=== PATIENT | female | born 1975 | race Caucasian/White ===

== ENCOUNTER 2018-08-15 16:48 | Emergency (ER) | payer BC, SELFPAY ==
[2018-08-15 16:54] VITALS: BP 107/57; PULSE 81; RESP 20; TEMP 37.2; O2SAT 96
--- NOTE | 2018-08-15 17:06 | W.ED.GENAD ---
Discharge Plan Disposition Patient Disposition: HOME Condition: Improving Discharge Details Chief Complaint: Fever Clinical Impression: Acute frontal sinusitis Primary Care Provider: Leslye Mcfarlane ED Provider: Sim Hernandez Home Meds and New Rx's Prescriptions: New amoxicillin-pot clavulanate 875-125 mg tablet 1 tab PO BID 10 Days Qty: 20 RF: 0 Continued OMEGA 3 FISH OIL 1 ea PO DAILY RF: 0 Discharge Instructions Instructions: Sinusitis (ED) Additional Instructions: Your influenza testing was negative. Home to rest this evening. Small, frequent sips of fluids to maintain hydration. May use Tylenol and/or ibuprofen as needed for aches, pains, fever. Return to the emergency room for worsening or any other acute concerns Medical Decision Making 43-year-old female 7-8 days of cough, congestion, fever chills and malaise with associated sinus congestion. She is afebrile, pleasant, well-appearing. Diagnosis includes influenza, bronchitis or sinusitis. Patient had flu testing performed which was negative. She does appear to have acute sinusitis and I will treat her as such. Discussed with her home management as well as return precautions. HPI General Mode of arrival: ambulatory. Date/Time Provider Initiated Documentation: 08/15/18 16:49. Limitations to Documentation: no limitations. Information obtained by: patient. History of Present Illness 43 year old F presents to the emergency department with the chief complaint of 8-10 days of fever and cough with malaise, question, described as moderate, Quality is described as aching and dull, and is localized to the chest. Patient reports no radiation. Patient started experiencing this day(s) and it has been constant. No relieving factors improve symptom(s), No exacerbating factors reported . Patient notes cough, fever/chills and loss of appetite. Related Data Home Medications Medication Instructions Recorded Confirmed Lampe 3 Fish Oil 1 ea PO DAILY 10/28/12 08/15/18 amoxicillin-pot clavulanate 1 tab PO BID 10 Days #20 tab 08/15/18 Previous Rx's Medication Instructions Recorded amoxicillin-pot clavulanate 1 tab PO BID 10 Days #20 tab 08/15/18 Allergies Allergy/AdvReac Type Severity Reaction Status Date / Time No Known Allergies Allergy Unverified 08/15/18 16:57 General Stated Complaint: Fever DHAVAL: 3 Review of Systems Review of Systems 8 systems reviewed and otherwise neg [facility] Social History Smoking/Tobacco Use Status: Never Exam Narrative Exam Narrative: GEN: awake, alert, oriented 3. Pleasant, well groomed, interactive. HEAD: Normocephalic, atraumatic ENT: Mucous membranes moist, oropharynx unremarkable, External ear exam unremarkable. Membranes fluid-filled but nondistended. Bilateral maxillary and frontal sinus tenderness to percussion EYES: PERRL, EOMI NECK: Full ROM, no CORAL, no menigismus CHEST/RESP: Nontender, clear to auscultation bilateral, no wheeze/rhonchi/rales CARDIOVASCULAR: RRR, no murmur, rub nemesio. 2+ Rad pulse bilateral ABDOMEN: Soft, nontender, no mass. +Bowel sounds EXT: Full ROM, no edema, no rash Neuro: Grossly normal neurologic exam, conversant, interactive. Psych: Speech fluent, thoughts congruent, affect normal Course Vital Signs Temperature 37.2 C 08/15/18 16:54 Pulse 81 08/15/18 16:54 Respiratory Rate 20 08/15/18 16:54 Blood Pressure 107/57 L 08/15/18 16:54 Pulse Oximetry 96 08/15/18 16:54 Temperature 37.2 C 08/15/18 16:54 Temperature Source Temporal Artery Scan 08/15/18 16:54 Pulse 81 08/15/18 16:54 Respiratory Rate 20 08/15/18 16:54 Respiratory Effort Non-Labored 08/15/18 16:54 Blood Pressure 107/57 L 08/15/18 16:54 Blood Pressure Position Sitting 08/15/18 16:54 Pulse Oximetry 96 08/15/18 16:54 Oxygen Delivery Method Room Air 08/15/18 16:54 Oxygen Flow Rate 0 08/15/18 16:54 Pain Level 6 08/15/18 16:54
[2018-08-15 18:11] VITALS: BP 107/57; PULSE 81; RESP 20; TEMP 37.2; O2SAT 96
== END 2018-08-15 18:15 | disposition home or self-care (01) ==
PROVIDERS: Emergency Provider Emergency Medicine; PCP Internal Medicine
DX: J01.10 Acute frontal sinusitis, unspecified (principal)
CPT/HCPCS: 87449; 99283

== ENCOUNTER 2018-09-14 08:53 | Outpatient (REF) | payer BC, SELFPAY ==
[2018-09-14 12:55] LABS: Anion Gap 10.2 mmol/L (3-11); BUN 13 mg/dL (7-18); CO2 27.8 mmol/L (21.0-32.0); CREATININE 0.76 mg/dL (0.55-1.02); Calcium 9.2 mg/dL (8.5-10.1); Chloride 103 mmol/L (98-107); Glucose 76 mg/dL (70-100); Potassium 3.9 mmol/L (3.5-5.1); Sodium 141 mmol/L (136-145); TSH 2.89 uIU/mL (0.358-3.74)
[2018-09-14 18:29] LABS: Cholesterol 195 mg/dL (50-200); HDL Cholesterol 80 mg/dL (40-60); LDL CHOLESTEROL 99 mg/dL (<100); Triglyceride 41 mg/dL (30-150)
== END 2018-09-14 09:13 ==
LOC: NCHCN 08:53
PROVIDERS: PCP Internal Medicine; Visit Provider Nurse Practitioner Family
DX: Z00.00 Encounter for general adult medical examination without abnormal findings (principal); E03.9 Hypothyroidism, unspecified
CPT/HCPCS: 80048; 80061; 83721; 84443

== ENCOUNTER 2018-09-19 09:54 | Outpatient (REF) | payer BC, SELFPAY ==
--- NOTE | 2018-09-19 09:00 | PAPFT_PTH ---
PATIENT: Belkis Wilson [facility] U#:[id number] AGE/SX: 43/F ROOM: RE09/19/[address]: Arcelia Brice : 1975 BED: DIS: 09/19/2018 SPEC #: [id number] RECD: 09/19/18 13:00 STATUS: CHRIS ARANA #: [id number] ANKIT: 09/19/18 09:[address]: Arcelia Brice DEPT: [facility] Cytology RECD BY: Alice Cook ENTERED: 09/19/18 13:01 SP TYPE: PAPFT OTHR DR: Leslye Mcfarlane Tissues: 1 - CX/ENDOCX FOR PAP SMEARS Procedures: PAP THIN PREP/UVM Screening HPV DNA PROBE Comments: [id number]
== END 2018-09-19 10:14 ==
LOC: NCHCN 09:54
PROVIDERS: PCP Internal Medicine; Visit Provider Nurse Practitioner Family
DX: Z00.00 Encounter for general adult medical examination without abnormal findings (principal); Z12.4 Encounter for screening for malignant neoplasm of cervix
CPT/HCPCS: 88142; 87624

== ENCOUNTER 2020-10-04 15:19 | Outpatient (REF) | payer BC, SELFPAY ==
[2020-10-04 16:55] LABS: Anion Gap 9.9 mmol/L (3-11); BUN 14 mg/dL (7-18); CO2 26.1 mmol/L (21.0-32.0); CREATININE 0.7 mg/dL (0.55-1.02); Calculated LDL 94 mg/dL (<100); Chloride 104 mmol/L (98-107); Cholesterol 181 mg/dL (<200); Glucose 83 mg/dL (74-106); HDL Cholesterol 75 mg/dL (40-60); Potassium 4.1 mmol/L (3.5-5.1); Sodium 140 mmol/L (136-145); TSH (W/Ref FT4) 3.28 uIU/mL (0.36-3.74); Triglyceride 61 mg/dL (<150)
== END 2020-10-04 15:20 | disposition home or self-care (01) ==
LOC: NCHCN 15:19
PROVIDERS: PCP Internal Medicine; Visit Provider Nurse Practitioner Family
DX: E03.9 Hypothyroidism, unspecified (principal); Z00.00 Encounter for general adult medical examination without abnormal findings
CPT/HCPCS: 80048; 80061; 84443

== ENCOUNTER 2021-08-22 10:35 | Outpatient (REF) | payer BC, SELFPAY ==
[2021-08-22 20:33] LABS: HCT 38.5 % (36.0-46.0); HGB 12.3 g/dL (11.2-15.7); MCH 30.1 pg (27.0-33.0); MCHC 31.9 % (32.0-36.0); MCV 94.4 fL (80-95); MPV 10.1 fL (8.0-11.0); Platelet Count 190 10^3/uL (130-400); RBC 4.08 10^6/uL (3.93-5.22); RDW 12.6 % (11.7-14.6); RDW-SD 43.8 fL; WBC 5.41 10^3/uL (4.4-10.8)
[2021-08-22 21:23] LABS: ALT 35 U/L (14-59); AST 23 U/L (15-37); Albumin 3.8 g/dL (3.4-5.0); Alkaline Phosphatase 68 U/L (46-116); Anion Gap 10.6 mmol/L (3-11); BUN 20 mg/dL (7-18); Bilirubin, Total 0.3 mg/dL (0.2-1.0); CO2 25.4 mmol/L (21.0-32.0); CREATININE 0.7 mg/dL (0.55-1.02); Calcium 9.3 mg/dL (8.5-10.1); Chloride 103 mmol/L (98-107); Glucose 86 mg/dL (74-106); Sodium 139 mmol/L (136-145); TSH 2.02 uIU/mL (0.36-3.74); Total Protein 7.3 g/dL (6.4-8.2); Vitamin B12 637 pg/mL (193-986)
[2021-08-24 17:17] LABS: T3, Total 102 ng/dL (97-169)
== END 2021-08-22 10:36 | disposition home or self-care (01) ==
LOC: NCHCN 10:35
PROVIDERS: PCP Internal Medicine; Visit Provider Nurse Practitioner Family
DX: E03.9 Hypothyroidism, unspecified (principal); R20.2 Paresthesia of skin
CPT/HCPCS: 80053; 85027; 82607; 84439; 84443; 84480

== ENCOUNTER 2023-06-14 06:14 | Day surgery (SDC) | payer BC, SELFPAY ==
--- NOTE | 2023-06-13 18:09 | W.PM.DSUDISC ---
Date of service: 06/14/23 Time of Service: 07:58 Discharge Plan Disposition Patient Disposition: Home Condition: Good Discharge Details Reason For Visit: Screening colonoscopy Attending Provider: Mayur Hill Primary Care Provider: Sloane Mendoza Home Meds and New Rx's Prescriptions: Continued multivitamin Tablet 1 tab PO DAILY Discontinued polyethylene glycol 3350 17 gram/dose powder 238 g PO ONCE Qty: 238 0RF Rx Instructions: take per colonoscopy instructions bisacodyl [Dulcolax (bisacodyl)] 5 mg tablet,delayed release (DR/EC) 5 mg PO ONCE Qty: 4 0RF Rx Instructions: take per colonoscopy instructions No Action acetaminophen [Tylenol] 325 mg tablet 325 mg PO ONCE PRN Discharge Instructions Additional Instructions: Belkis, we were able to complete your colonoscopy today without any difficulty at all. The quality of your prep was excellent. I could see everything without any difficulty at all. I did not see any signs of tumors, polyps, or really any other abnormalities whatsoever. Keep up what ever as you are doing. I would consider another screening colonoscopy in 10 years. 1. If tolerated, consume a soft, low fiber diet for 1-2 days. [address] Do not drive, drink alcohol, operate machinery, make critical decisions, or do activities that require coordination or balance for 24 hours. 3. Because air was put into your colon during the procedure, expelling air from your rectum (passing gas or farting) is normal. 4. You may not have a bowel movement for 1-3 days because of the colonoscopy prep. This is normal. 5. Go directly to the emergency room if you notice any of the following: Develop chills (warm to touch), or if you have a thermometer and your temperature is above 101 Difficulty breathing or difficultly swallowing Persistent vomiting Severe abdominal pain, other than gas cramps Severe chest pain Black, tarry stools Any bleeding ? exceeding one tablespoon 6. Call your physician if the site where your intravenous was started becomes red, swollen, painful, and warm to touch. 7. Your physician has reviewed your pre-procedure medications. Please continue to take those medications as previously ordered. You will be given specific information/education regarding any changes to your medications before leaving. Activity:: Activity as Tolerated Diet:: As Tolerated Discharge Orders Discharge Orders: Discharge Order (Routine); Ordered 06/13/23 Ordered By: Mayur Hill DS: Diagnosis Discharge Diagnosis (1) Screening for colorectal cancer: Status: Acute Asessment and Plan: Negative screening colonoscopy; follow-up in 10 years
--- NOTE | 2023-06-13 18:11 | W.COLOREPORT ---
Date of service: 06/14/23 Time of Service: 08:00 Colonoscopy Report Date of procedure: 06/14/23 Pre-op diagnosis general: screening colonoscopy Post-op diagnosis procedure note: other (Negative screening colonoscopy) Procedure: Colonoscopy Surgeon: Mayur Hill Anesthesia Type: General:No Airway Estimated blood loss (mL): 0 Pathology: none sent Complications: None Disposition: same day Indications: Belkis is a 48 year old woman who needs a screening colonoscopy Prep: Miralax/Dulcolax Procedure Start Time: 07:30 Procedure End Time: 07:47 Retraction Time: 9 Findings: Negative screening colonoscopy Procedure Description: After the induction of monitored anesthetic care, and with the patient in left lateral decubitus position, I began by performing an external anorectal exam.? Perineum and skin were normal, as was the anal verge.? There was no evidence of external hemorrhoids.? Next, I performed a digital rectal exam.? I did not appreciate any abnormal findings.? Next, I advanced a colonoscope into the rectal vault.? I performed retroflexion.? This appeared normal.? Using insufflation, I then advanced the colonoscope beyond the rectal folds and into the sigmoid colon before advancing towards the cecum.? The quality of the prep was outstanding.? The scope was noted to be in the cecum by identification of the ileocecal valve and appendiceal orifice.? I then began withdrawing the colonoscope using repeated irrigation as necessary for full evaluation of the colonic mucosa. ?Once the scope was withdrawn to the level of the rectum, great care was taken to examine portions of the rectal folds.? I did not see any signs of tumors, polyps, or any other abnormalities. Finally, the scope was withdrawn and the patient was brought to the same-day surgery recovery unit as the anesthetic wore off. ?The findings and instructions were shared with the patient prior to discharge.
[2023-06-14 06:33] VITALS: BP 112/62; PULSE 55; RESP 16; TEMP 36.5; O2SAT 100
[2023-06-14] MEDS: Lactated Ringers 1,000 ML 80 ML IV (07:01)
--- NOTE | 2023-06-14 07:05 | W.ANESPRE ---
General Info Date of Service Date Performed: 06/14/23 Height: 5 ft 1 in Weight: 57.6 kg Body Mass Index (BMI): 24.0 Surgical Procedure: Operation Date: 06/14/23 07:35 Proposed Procedure Side Surgeon pavel Hill MD Meds Allergies and Home Medications Allergies Allergy/AdvReac Type Severity Reaction Status Date / Time No Known Allergies Allergy Unverified 06/14/23 06:36 Home Medication Medication Instructions Recorded multivitamin 1 tab PO DAILY 06/02/23 acetaminophen 325 mg tablet 325 mg PO ONCE PRN 06/14/23 (Tylenol) Current Visit Medications: Current Medications Generic Name Dose Route Start Last Admin Trade Name Freq PRN Reason Stop Dose Admin Hyoscyamine Sulfate 0.125 mg 06/13/23 18:12 Hyoscyamine 0.125 Mg Sl/Oral/Chew SL 07/13/23 18:11 DIRECTED PRN Ringer's Solution 1,000 mls @ 80 mls/hr 06/14/23 06:00 06/14/23 07:01 IV 07/11/23 23:59 80 mls/hr INFUSION DANNY Administration IV Miscellaneous Supplies 1 each 06/14/23 06:00 Iv Access IV 07/11/23 23:59 DIRECTED DANNY Ondansetron HCl 4 mg 06/13/23 18:12 Ondansetron 4 Mg/2 Ml Vial IVP 07/13/23 18:11 Q4H PRN PRN Nausea / Vomiting Sodium Chloride 0 ml 06/14/23 06:00 Normal Saline Flush 10 Ml Syr IV 07/11/23 23:59 PRN PRN Sodium Chloride 0 ml 06/14/23 06:00 Normal Saline 10 Ml Vial IJ 07/11/23 23:59 DIRECTED PRN Sterile Water 0 ml 06/14/23 06:00 Water,Injection,Sterile 10 Ml Vial IJ 07/11/23 23:59 DIRECTED PRN PFSH Active Problems Active Problems: Problem Status Onset Code Screening for colorectal cancer Z12.11, Z12.12 Paresthesia R20.2 Diastasis recti M62.08 Medical History Medical History Subclinical hypothyroidism (10/28/12) Nephrolithiasis Raynaud's disease Surgical History Surgical History History of surgery tail bone Tobacco Smoking/Tobacco Use Status: Never Alcohol Alcohol Intake: never Substance Use Substance use: Never Substance use type: does not use Vital Signs and Lab Results Vital Signs Most Recent Vital Signs in EMR: Most Recent Vital Signs Temp Pulse Resp BP Pulse Ox 36.5 C 55 L 16 112/62 100 06/14/23 06:33 06/14/23 06:33 06/14/23 06:33 06/14/23 06:33 06/14/23 06:33 Point of Care Results Point of Care Results: POC- Test(urine) Negative 06/14/23 06:46 Lab Results Blood Type / Crossmatch: No Data to Display Complete Blood Count: No Data to Display Complete Metabolic Panel: No Data to Display Liver Function Panel: No Data to Display Coagulation Panel: No Data to Display Cardiac Panel: No Data to Display Arterial Blood Gas: No Data to Display Venous Blood Gas: No Data to Display Pancreas Panel: No Data to Display Thyroid Panel: No Data to Display Infectious Disease: No Data to Display Blood Cultures: No Data to Display Toxicology Panel: No Data to Display Panel: No Data to Display Anesthesia Assessment and Plan Anesthesia History Personal History: No History of Anesthesia Complications Family History: No Family History of Anesthesia Complications Exercise Tolerance Exercise Tolerance: Metabolic Equivalents>4 Pertinent Negatives Pertinent Negatives: No Symptoms of GERD, No Major Cardiovascular Symptoms or Complaints and No Major Pulmonary Symptoms or Complaints Cardiac & Pulmonary Exam Cardiac Exam: Normal S1/S2 Heart Sounds Pulmonary Exam: Clear Bilateral Breath Sounds Implantable Cardiac Device Does patient have a Pacemaker or an ICD?: No Airway Exam Known Difficult Airway: No Mallampati Class: 1 Mouth Opening: Normal (> 3cm) Thyromental Distance: Greater than 3 cm Neck Range of Motion: Full ROM Neck Circumference: Normal Teeth Condition: Normal Dentition ASA Classification ASA Score: ASA 1 Emergency Case?: No NPO Status NPO Status: NPO Clears >2 hours, Solids >8 hours Status Status: Negative HCG Anesthesia Plan Resuscitation Status: Full Code Anesthesia Technique: General Anesthesia Airway Planned: Natural Airway Monitors Used: Standard Monitors
[2023-06-14 07:08] VITALS: BMI 24.0
[2023-06-14 07:58] VITALS: BP 82/67; PULSE 54; RESP 16; TEMP 36.3; O2SAT 100
--- NOTE | 2023-06-14 08:04 | W.ANESPOSTOP ---
Postoperative Evaluation Date, Time and Location Date Performed: 06/14/23 Time Performed: 08:04 Patient Location: Day Surgery Unit Vital Signs Most Recent Imported Vital Signs: Most Recent Vital Signs Temp Pulse Resp BP Pulse Ox 36.3 C L 54 L 16 82/67 L 100 06/14/23 07:58 06/14/23 07:58 06/14/23 07:58 06/14/23 07:58 06/14/23 07:58 Pain Score Most Recent Pain Score: Most Recent Pain Score Pain Level 4 06/14/23 07:58 Assessment Mental Status: Awake (Alert & Oriented to Patient Baseline) Airway and Respiratory Function: Patent airway with normal (patient baseline) respiratory exam Cardiovascular Function: Hemodynamically Stable Hydration Status: Adequately Hydrated Nausea & Vomiting: No Nausea or Vomiting Pain: Pt. Denies Any Pain Peripheral Nerve Block: Patient did not receive a nerve block
[2023-06-14 08:34] VITALS: BP 100/62; PULSE 50; RESP 18; TEMP 36.8; O2SAT 100
== END 2023-06-14 08:55 | disposition home or self-care (01) ==
PROVIDERS: PCP Nurse Practitioner Family; Visit Provider Surgery
PROC: 0DJD8ZZ Inspection of Lower Intestinal Tract, Via Natural or Artificial Opening Endoscopic (ICD-10-PCS; CPT 45378; principal; 2023-06-14 07:30)
DX: Z12.11 Encounter for screening for malignant neoplasm of colon (principal)
CPT/HCPCS: 45378; 81025; J2001

== ENCOUNTER → 2023-08-30 16:02 | Outpatient (CLI) | payer BC, SELFPAY ==
--- NOTE | 2023-08-30 12:27 | DI.RAD_ITS ---
Exam(s) XR CERVICAL SPINE COMP 4-5V EXAM: XR CERVICAL SPINE COMP 4-5V CLINICAL HISTORY: M54.2 Cervicalgia. TECHNIQUE: 2D digital imaging was performed. Five views were performed. COMPARISON: No exams were available for comparison FINDINGS: BONES: No fracture or destructive lesion. Vertebral bodies are unremarkable. DISKS: Intervertebral disc spaces are maintained. ALIGNMENT: Cervical spinal alignment is within normal limits. The odontoid and atlantoaxial articulat ions are normal. SOFT TISSUE: Normal. The lung apices are clear. IMPRESSION: Unremarkable radiographs of the cervical spine. DATA REPOSITORY: RADIATION DOSE DELIVERED:
== END ==
PROVIDERS: PCP Nurse Practitioner Family; Visit Provider Nurse Practitioner Family
DX: M54.2 Cervicalgia (principal)
CPT/HCPCS: 72050

== ENCOUNTER 2024-01-22 19:25 | Emergency (ER) | payer BC, SELFPAY ==
[2024-01-22 19:28] VITALS: BP 125/73; PULSE 53; RESP 16; TEMP 36.4; O2SAT 100
--- NOTE | 2024-01-22 19:45 | ED.GENADUL_ITS ---
Discharge Plan Disposition Patient Disposition: Home Condition: Stable Discharge Details Clinical Impression: Dog bite Primary Care Provider: Sloane Mendoza ED Provider: Lui Ovalles Home Meds and New Rx's Prescriptions: New amoxicillin 875 mg tablet 875 mg PO BID 7 Days Qty: 14 0RF Continued multivitamin Tablet 1 tab PO DAILY acetaminophen [Tylenol] 325 mg tablet 325 mg PO ONCE PRN Discharge Instructions Additional Instructions: Take the antibiotic as prescribed You will need 3 more rabies vaccines, 1 on the , the , and on the . You should be able to have these done at the infusion room If you feel more ill or have severe worsening pain or high fevers return to the emergency department for reevaluation HPI General Mode of arrival: ambulatory . Date/Time Provider Initiated Documentation: 01/22/24 19:27 . Limitations to Documentation: no limitations . Information obtained by: patient . History of Present Illness 48 year old F presents to the emergency department with the chief complaint of dog bite, described as mild, Patient started experiencing this hour(s) (2) and it has been constant. No relieving factors improve symptom(s), No exacerbating factors reported . Patient notes no other symptoms.. Patient did receive the following treatments prior to arrival, none Related Data Home Medications Medication Instructions Recorded Confirmed multivitamin 1 tab PO DAILY 06/02/23 01/22/24 acetaminophen 325 mg tablet 325 mg PO ONCE PRN 06/14/23 01/22/24 (Tylenol) amoxicillin 875 mg tablet 875 mg PO BID 7 days #14 tabs 01/22/24 Previous Rx's Medication Instructions Recorded amoxicillin 875 mg tablet 875 mg PO BID 7 days #14 tabs 01/22/24 Allergies Allergy/AdvReac Type Severity Reaction Status Date / Time No Known Allergies Allergy Unverified 01/22/24 19:32 General Stated Complaint: AnimalBite DHAVAL: 4 Review of Systems All systems reviewed & are unremarkable except as noted in HPI and below Constitutional Constitutional: Denies chills, Denies fever(s) and Denies weakness Cardiovascular Cardiovascular: Denies chest pain and Denies dyspnea Respiratory Respiratory: Denies cough and Denies dyspnea Gastrointestinal Gastrointestinal: Denies abdominal pain, Denies nausea and Denies vomiting Integumentary/Breasts Skin/Breast: Denies rash Neurologic Neurologic: Denies weakness Exam Const General: no acute distress Orientation: alert HENMT Head: normal to inspection Ears: external ears normal General nose exam: external nose normal Mouth: moist mucous membranes Eyes General: appearance normal, both eyes and all related structures Neck Neck: normal visual inspection Resp Effort & Inspection: normal respiratory effort and able to speak in complete sentences Cardio Rate: regular rate Skin General skin exam: no rashes or lesions noted Neuro General: patient alert and patient oriented x3 Extrem General: full ROM Psych Mental Status: mental status grossly normal Course Vital Signs Vital signs: Vital Signs Temperature 36.4 C L 01/22/24 19:28 Pulse 53 L 01/22/24 19:28 Respiratory Rate 16 01/22/24 19:28 Blood Pressure 125/73 01/22/24 19:28 Pulse Oximetry 100 01/22/24 19:28 Temperature 36.4 C L 01/22/24 19:28 Pulse 53 L 01/22/24 19:28 Respiratory Rate 16 01/22/24 19:28 Blood Pressure 125/73 01/22/24 19:28 Pulse Oximetry 100 01/22/24 19:28 Oxygen Delivery Method Room Air 01/22/24 19:28 Oxygen Flow Rate 0 01/22/24 19:28 Medical Decision Making 48-year-old female denies any significant past medical history comes in with a dog bite to the left upper thigh. She says it is from a neighbors dog that she is not in close contact with and does not feel like she could monitor the dog for rabies. She says the dog came up and bit her on the left upper thigh, did not fall or have other injuries. She says she feels well otherwise. She is alert and oriented on arrival ambulatory. She has a small 1 cm superficial abrasion to the left medial thigh. There is no drainage, no surrounding erythema, mild bruising around it. Discussed with her given she does not feel comfortable that she could observe the dog she would like to proceed with rabies vaccination. Will order this and set her up to have the subsequent 3 doses administered in the infusion room. Will also start on Augmentin. She is stable for discharge and return precautions given Differential Diagnosis Differential Diagnosis: Dog bite, laceration Quality:SDOH Health Related Social Needs: No Data to Display PFSH All Active Problems (Updated 01/22/24 @ 19:50 by Lui Ovalles MD) Dog bite (Acute) Screening for colorectal cancer (Acute) Paresthesia (Acute) Diastasis recti (Acute) Medical History (Updated 01/22/24 @ 19:50 by Lui Ovalles MD) Subclinical hypothyroidism (10/28/12) Nephrolithiasis Raynaud's disease Surgical History (Updated 06/14/23 @ 15:29 by Leena Escudero) History of colonoscopy (~05/2023) History of surgery tail bone Social History Smoking/Tobacco Use Status: Never Smoking risk assessment performed?: Yes Alcohol Intake: never Drug use: Never Substance use type: does not use Housing: house Do you feel safe at home: Yes Do you feel safe in your relationship?: Yes
--- NOTE | 2024-01-22 19:55 | NUR.NOTE ---
Rabies Vaccine Physician Order has been sent to infusion for out patient observation per ER Dr. David Ovalles
[2024-01-22] MEDS: Amoxicillin 875/Clav. 125 TAB PO (19:56)
--- NOTE | 2024-01-22 20:36 | NUR.NOTE ---
Animal bite form sent to Rene MARS department of health [facility] officer
[2024-01-22] MEDS: Rabies vaccine (PCEC)/PF 2.5 UNITS/ML VIAL IM (21:32)
[2024-01-22] MEDS: Rabies Immune Globulin 300 UNIT/ML VIAL 1224.7 UNIT IM (21:32)
== END 2024-01-22 21:36 | disposition home or self-care (01) ==
PROVIDERS: Emergency Provider Emergency Medicine; PCP Nurse Practitioner Family
DX: S70.312A Abrasion, left thigh, initial encounter (principal); W54.0XXA Bitten by dog, initial encounter; Y93.89 Activity, other specified; Y92.414 Local residential or business street as the place of occurrence of the external cause; Z23 Encounter for immunization
CPT/HCPCS: 90375; 90471; 90472; 90715; 96372; 99283; 90675

== ENCOUNTER 2024-02-03 16:33 | Outpatient (REF) | payer BC, SELFPAY ==
--- NOTE | 2024-02-03 14:30 | PAPFT_PTH ---
PATIENT: Belkis Wilson LOC: [facility]#:[id number] AGE/SX: 48/F ROOM: RE02/03/[address]: Sloane Mendoza : 1975 BED: DIS: 02/03/2024 SPEC #: [id number] RECD: 02/03/24 18:09 STATUS: CHRIS REQ #: [id number] ANKIT: 02/03/24 14:[address]: Sloane Mendoza DEPT: [facility] Cytology RECD BY: Alice Cook Tissues: 1 - CX/ENDOCX FOR PAP SMEARS Procedures: PAP THIN PREP/[facility] Screening HPV DNA PROBE Comments: [id number] (HPV 16 & 18/45)
[2024-02-03 18:48] LABS: Abs Immature Grans 0.02 10^3/uL (0.0-0.06); Absolute Basophil Count 0.02 10^3/uL (0.0-0.2); Absolute Eosinophil Count 0.04 10^3/uL (0.0-0.7); Absolute Lymphocyte Count 2.41 10^3/uL (1.2-3.4); Absolute Monocyte Count 0.57 10^3/uL (0.1-0.8); Absolute Neutrophil Count 4.63 10^3/uL (1.2-6.7); Basophils % 0.3 %; Eosinophils % 0.5 %; HCT 38.9 % (36.0-46.0); HGB 13.1 g/dL (11.2-15.7); Immature Grans % 0.3 %; Lymphocytes % 31.3 %; MCH 30.6 pg (27.0-33.0); MCHC 33.7 % (32.0-36.0); MCV 91 fL (80-95); MPV 9.5 fL (8.0-11.0); Monocytes % 7.4 %; Neutrophils % 60.2 %; Platelet Count 222 10^3/uL (130-400); RBC 4.28 10^6/uL (3.93-5.22); RDW 12.5 % (11.7-14.6); RDW-SD 41.8 fL; WBC 7.69 10^3/uL (4.4-10.8)
[2024-02-03 19:48] LABS: ALT 47 U/L (14-59); AST 42 U/L (15-37); Albumin 3.8 g/dL (3.4-5.0); Alkaline Phosphatase 80 U/L (46-116); Anion Gap 8.6 mmol/L (3-11); BUN 16 mg/dL (7-18); Bilirubin, Total 0.25 mg/dL (0.2-1.0); CO2 28.4 mmol/L (21.0-32.0); CREATININE 0.9 mg/dL (0.55-1.02); Calcium 9.2 mg/dL (8.5-10.1); Calculated LDL 93 mg/dL (<100); Chloride 103 mmol/L (98-107); Cholesterol 173 mg/dL (<200); Estimated GFR 78.37 (mL/min/1.73m2); Folate 11.1 ng/mL (8.6-20.0); Glucose 90 mg/dL (74-106); HDL Cholesterol 68 mg/dL (40-60); Potassium 3.9 mmol/L (3.5-5.1); Sodium 140 mmol/L (136-145); TSH (W/Ref FT4) 4.77 uIU/mL (0.36-3.74); Total Protein 7.6 g/dL (6.4-8.2); Triglyceride 64 mg/dL (<150); Vitamin B12 975 pg/mL (193-986); Vitamin D 25 Total 24.8 ng/mL (30-100)
[2024-02-03 20:10] LABS: FREE T4 0.94 ng/dL (0.76-1.46)
== END 2024-02-03 16:34 | disposition home or self-care (01) ==
LOC: NCHCN 16:33
PROVIDERS: PCP Nurse Practitioner Family; Visit Provider Nurse Practitioner Family
DX: Z00.00 Encounter for general adult medical examination without abnormal findings (principal); R53.83 Other fatigue; E55.9 Vitamin D deficiency, unspecified; R94.6 Abnormal results of thyroid function studies; Z13.220 Encounter for screening for lipoid disorders; Z12.4 Encounter for screening for malignant neoplasm of cervix; Z11.51 Encounter for screening for human papillomavirus (HPV); R20.2 Paresthesia of skin
CPT/HCPCS: 80053; 80061; 82306; 88142; 82607; 82746; 84439; 84443; 85025; 87624

== ENCOUNTER 2024-02-05 00:58 | Outpatient (RCR) | payer BC, SELFPAY ==
[2024-01-25] MEDS: Rabies vaccine (PCEC)/PF 2.5 UNITS/ML VIAL (15:03)
[2024-02-05 15:22] VITALS: BP 109/57; PULSE 59; RESP 16; TEMP 36.7; O2SAT 98
[2024-02-05] MEDS: Rabies vaccine (PCEC)/PF 2.5 UNITS/ML VIAL IM (15:26)
== END 2024-02-13 23:59 | disposition home or self-care (01) ==
LOC: INF 00:58
PROVIDERS: PCP Nurse Practitioner Family; Visit Provider Emergency Medicine
DX: Z20.3 Contact with and (suspected) exposure to rabies (principal)
CPT/HCPCS: 90471; 96365; 96372; 90675

== ENCOUNTER 2024-03-02 14:23 | Outpatient (REF) | payer BC, SELFPAY ==
--- NOTE | 2024-03-02 12:10 | SKI_PTH ---
PATIENT: Belkis Wilson LOC: [facility] U#:[id number] AGE/SX: 48/F ROOM: RE03/02/[address]: Sloane Mendoza : 1975 BED: DIS: 03/02/2024 SPEC #: [id number] RECD: 03/02/24 17:45 STATUS: CHRIS RE #: [id number] ANKIT: 03/02/24 12:[address]: Sloane Mendoza DEPT: Surgical Specimen RECD BY: Alice Cook Tissues: 1 - SKIN BIOPSY(SHAVE/PUNCH) 2 - SKIN BIOPSY(SHAVE/PUNCH) Procedures: SKIN LEVEL 4 Comments: [id number]
--- OUTSIDE RECORDS SUMMARY | 2024-03-02 14:29 | XMS_ITS | Clinical Summary ---
Author Organization [facility] Address [facility] [place] [place] [address] Care Team Providers Care Verifying Specialist Name Role Phone Arcelia Brice APRN Primary Care Provider [phone] Allergies No known active allergies Medications Medication Sig Dispensed Refills Start Date End Date Status cholecalciferol, Vitamin D3, 400 unit tablet Take 400 Units by mouth daily. Active [place]-3 Fatty Acids (FISH OIL) 300 mg Cap Take by mouth. Active VITS W-CA,FE,FA,<1MG, ( VITAMIN ORAL) Take by mouth. Active cyanocobalamin, vitamin B-12, 100 mcg tablet Take 100 mcg by mouth daily. Active CALCIUM & MAGNESIUM CARBONATES ORAL Take by mouth. Activ e ibuprofen (ADVIL;MOTRIN) 600 mg tablet Take 1 tablet by mouth every 6 hours as needed for Pain (mild to moderate pain). 30 tablet 0 03/12/2013 Active acetaminophen (ACETAMINOPHEN PAIN RELIEF) 325 mg tablet Take 1-2 tablets by mouth every 6 hours as needed for Pain. 30 tablet 1 03/12/2013 Active Active Problems Problem Noted Date Diagnosed Date , supervision of, high-risk 11/30/2012 Overview (12/06/2012): Team MFM transfer of care from [facility] at 24 weeks Delivery plan GBS date & Result Cystic fibrosis choice Negative from prior Aneuploidy choice declined Others screening tests nutrition Childbirth education preferences Contraception plan condoms Ped/circ plans [facility] Immunizations: Influenza vaccine Accepted Declined Contraindicated x Other vaccines Indicated Not indicated Given during Tdap x Pneumovax MMR Varicella x Other RhD negative 11/30/2012 Overview (01/02/2013): Rhogam Canidiate Will be getting her 28 week Rhogam at [facility] Raynaud disease 11/30/2012 Overview (11/30/2012): Dx 20 years ago and confirmed 1 year ago AMA (advanced maternal age) multigravida 35+ Elevated TSH 11/30/2012 Overview (11/30/2012): TSH 3.7 in . No h/o hypothyroid. Pt declines Synthroid. Family History Medical History Relation Comments Congenital Anomalies Neg Hx Down Syndrome Neg Hx Social History Tobacco Use Types Packs/Day Years Used Date Smoking Tobacco: Never Smokeless Tobacco: Never Alcohol Use Standard Drinks/Week Comments No 0 (1 standard drink = 0.6 oz pur e alcohol) Sex and Gender Information Value Date Recorded Sex Assigned at Not on file Gender Identity Not on file Sexual Orientation Not on file Last Filed Vital Signs Vital Sign Reading Time Taken Comments Blood Pressure 102/59 03/12/2013 8:35 AM EDT Pulse 64 03/12/2013 8:35 AM EDT Temperature 36.7 ??C (98.1 ??F) 03/12/2013 8:35 AM ED T Respiratory Rate 16 03/12/2013 8:35 AM EDT Oxygen Saturation - - Inhaled Oxygen Concentration - - Weight 60.3 kg (132 lb 14.4 oz) 013 12:02 PM EDT Height 156.2 cm (5' 1.5) 04/28/2013 12 :02 PM EDT Body Mass Index 24.7 04/28/2013 12:02 PM EDT Plan of Treatment Health Maintenance Due Date Last Done Comments CT Colonography 1975 Colonoscopy 1975 Colorectal Cancer Screening 1975 FIT DNA 1975 FIT 1975 Sigmoidoscopy (10 year) with FIT yearly 1974 Sigmoidoscopy 1974 HIV screen 1992 Hepatitis C Screening 1992 Hepatitis B vaccine (0-59 yrs) (1) 1993 Tdap adult 1993 Tetanus vaccine 1993 HPV test 2004 PAP Smear 2004 Breast Cancer Share Decision Needed 2014 Breast Cancer screening 2014 Covid-19 Vaccine (2022-24 season) 2023 Influenza (Flu) vaccine (1 o f 1 - Influenza standard series) 04/16/2024 Advance Directives * Full Code (Latest Code Status on File) Date Activated Date Inactivated Comments 03/10/2013 8:28 PM 03/10/2013 11:45 PM Question Answer Comments Order Status: Initial Order Does patient have decision m aking capacity? Yes, Order is based on Patients wishes. Care Teams Verifying Specialist Relationship Specialty Start Date End Date Arcelia Brice, [place] [address] [place] [address] PCP - General Family Medicine 09/10/21
--- OUTSIDE RECORDS SUMMARY | 2024-03-02 14:29 | XMS_ITS | Encounter Summary ---
Author Organization [facility] Address [facility] [place] [address] Care Team Providers Care Gate Operator Name Role Phone None Primary Care Provider Unavailabl e Encounter Details Date Type Department Care Team (Latest Contact Info) Description 12/28/2012 2:10 PM EDT - 12/28/2012 11:59 PM EDT Hospital Encounter Laboratory [facility] [place] [id number] Bernice Corona MD [facility] [address] OBSTETRICS & [place] [address] , supervision of, high-risk Discharge Disposition: Home Social History Tobacco Use Types Packs/Day Years Used Date Smoking Tobacco: Never Smokeless Tobacco: Never Alcohol Use Standard Drinks/Week Comments No 0 (1 standard drink = 0.6 oz pur e alcohol) Comments Yes Sex and Gender Information Value Date Recorded Sex Assigned at Not on file Gender Identity Not on file Sexual Orientation Not on file documented as of this encounter Medications at Time of Discharge Medication Sig Dispensed Refills Start Date End Date cholecalciferol, Vitamin D3, 400 unit tablet Take 400 Units by mouth daily. [place]-3 Fatty Acids (FISH OIL) 300 mg Cap Take by mouth. VITS W-CA,FE,FA,<1MG, ( VITAMIN ORAL) Take by mouth. cyanocobalamin, vitamin B-12, 100 mcg tablet Take 100 mcg by mouth daily. CALCIUM & MAGNESIUM CARBONATES ORAL Take by mouth. documented as of this encounter Plan of Treatment Not on file documented as of this encounter Procedures Procedure Name Priority Date/Time Associated Diagnosis Comments DIFFERENTIAL, AUTOMATED Routine 12/28/2012 2:27 PM EDT GLUCOSE 1 HOUR POST PRANDIAL Routine 12/28/2012 2:27 PM EDT , supervision of, high-risk ABO/RH TYPING Routine 12/28/2012 2:27 PM EDT , supervision of, high-risk CBC (WITH DIFF) Routine 12/28/2012 2:27 PM EDT , supervision of, high-risk ANTIBODY SCREEN Routine 12/28/2012 2:27 PM EDT , supervision of, high-risk TYPE AND SCREEN ([facility]/CGP/PAM) Routine 12/28/2012 2:27 PM EDT , supervision of, high-risk documented in this encounter Results * (ABNORMAL) Differential, Automated (12/28/2012 2:27 PM EDT) Neutrophils % 77.9(H) 34.0 - 71.0 % CERNER MILLENNIUM Neutr Abs (ANC) 6.32(H) 1.50 - 6.30 x10(3)/mc L CERNER MILLENNIUM Lymphocytes % 16.7(L) 19.0 - 53.0 % CERNER MILLENNIUM Lymphocytes Abs 1.4 1.0 - 3.6 x10(3)/mc L CERNER MILLENNIUM Monocytes % 4.9 4.0 - 13.0 % CERNER MILLENNIUM Monocyte Abs 0.4 0.2 - 1.0 x10(3)/mc L CERNER MILLENNIUM Eosinophils % 0.4 0.0 - 7.0 % CERNER MILLENNIUM Eosinophils Abs 0.0 0.0 - 0.5 x10(3)/mc L CERNER MILLENNIUM Basophils % 0.0 0.0 - 2.0 % CERNER MILLENNIUM Basophils Abs 0.0 0.0 - 0.2 x10(3)/mc L CERNER MILLENNIUM Immature Gran % 0.10 0.00 - 0.66 % CERNER MILLENNIUM Comment: Immature granulocytes(IG's)percentage and absolute count will include metamyelocytes, myelocytes, and promyelocytes. Blood smears from CBCs yielding IG's will be scanned manually for concordance. If this scan disagrees with the automated IG or if promyelocytes are noted, a manual differential will be performed. Kate Gran Abs 0.01 0.00 - 0.05 x10(3)/mc L RAFITA FERRER Blood specimen (specimen) 12/28/2012 2:27 PM EDT 12/28/2012 2:30 PM EDT Bernice Corona MD HEMATOLOGY ORDERABLE S Performing Organization Address [facility] [address] [facility] de Phone Number RAFITA FERRER * Antibody screen (12/28/2012 2:27 PM EDT) Ab Screen Interp Negative RAFITA FERRER Expires at [id number] on: [id number] RAFITA FERRER Blood specimen (specimen) 12/28/2012 2:27 PM EDT 12/28/2012 2:35 PM EDT Narrative Resulting Agency Comment Spec In Lab Bernice Corona MD BLOOD BANK LAB ORDER TAN Performing Organization Address [facility] Phone Number RAFITA FERRER * ABO/Rh Typing (12/28/2012 2:27 PM EDT) ABORH Type O Neg RAFITA FERRER Blood specimen (specimen) 12/28/2012 2:27 PM EDT 12/28/2012 2:35 PM EDT Narrative Resulting Agency Comment Spec In Lab Bernice Corona MD BLOOD BANK LAB ORDER TAN Performing Organization Address [facility] de Phone Number RAFITA FERRER * Glucose 1 Hour Post Prandial (12/28/2012 2:27 PM EDT) Glucose, 1Hr PP 98 mg/dL RAFITA FERRER Blood specimen (specimen) 12/28/2012 2:27 PM EDT 12/28/2012 2:30 PM EDT Narrative Resulting Agency Comment Spec In Lab Brenice Corona MD CHEMISTRY ORDERABLES Performing Organization Address [facility] [address] [facility] de Phone Number RAFITA FERRER * (ABNORMAL) CBC (with Diff) (12/28/2012 2:27 PM EDT) WBC 8.1 4.0 - 10.0 x10(3)/mcL CERNER MILLENNIUM RBC 3.53(L) 3.93 - 5.22 x10(6)/mcL CERNER MILLENNIUM Hemoglobin 10.9(L) 11.2 - 15.7 gm/dL CERNER MILLENNIUM Hematocrit 33.8(L) 34.0 - 45.0 % CERNER MILLENNIUM MCV 95.8(H) 79.0 - 94.0 fL CERNER MILLENNIUM MCH 30.9 26.6 - 32.2 pg CERNER MILLENNIUM MCHC 32.2 32.0 - 36.5 gm/dL CERNER MILLENNIUM Platelets 126(L) 145 - 370 x10(3)/mcL CERNER MILLENNIUM RDWSD 48.2(H) 35.0 - 46.0 fL CERNER MILLENNIUM RDWCV 13.9 10.9 - 14.4 % CERNER MILLENNIUM MPV 10.1 9.0 - 12.0 fL CERNER MILLENNIUM Blood specimen (specimen) 12/28/2012 2:27 PM EDT 12/28/2012 2:30 PM EDT Narrative Resulting Agency Comment Spec In Lab Bernice Corona MD HEMATOLOGY ORDERABLE S RAFITA FERRER documented in this encounter Visit Diagnoses Diagnosis , supervision of, high-risk Unspecified high-risk documented in this encounter Care Teams Gate Operator Relationship Specialty Start Date End Date None None PCP - General 08/18/12 09/09/21 documented as of this encounter
--- OUTSIDE RECORDS SUMMARY | 2024-03-02 14:29 | XMS_ITS | Encounter Summary ---
Author Organization [facility] Address [facility] [place] [address] Care Team Providers Care Practice Or Student Teacher Name Role Phone None Primary Care Provider Unavailabl e Reason for Visit * Reason Comments Routine Visit Encounter Details Date Type Department Care Team (Late st Contact Info) Description 02/15/2013 1:15 PM EDT Routine Obstetrics [place] [address] Valentina Mae MD [facility] DR OBSTETRICS & [place] [address] GA: [id number] Discharge Disposition: Home Social History Tobacco Use [...] on file documented as of this encounter Last Filed Vital Signs Vital Sign Reading Time Taken Comments Blood Pressure 92/60 02/15/2013 1:11 PM EDT Pulse - - Temperature - - Respiratory Rate - - Oxygen Saturation - - Inhaled Oxygen Concentration - - Weight 67.6 kg (149 lb) 02/15/2013 1:11 PM EDT Height - - Body Mass Index 27.7 11/30/2012 1:07 PM EDT documented in this encounter Progress Notes * Valentina Mae MD - 02/15/2013 1:33 PM EDT FM felt, no LOF, no bleeding or keren. GBBS done. F/u 7-10 days documented in this encounter Plan of Treatment Not on file documented as of this encounter Procedures Procedure Name Priority Date/Time Associated Diagnosis Comments GROUP B STREPTOCOCCUS SCREEN Routine 02/15/2013 5:09 PM EDT GROUP B STREP CULTURE SCREEN Routine 02/15/2013 5:09 PM EDT Unspecified high-risk documented in this encounter Results * Group B Streptococcus Screen (02/15/2013 5:09 PM EDT) Group B Strep Screen Neg [facility] Pooled specimen from vaginal introitus and rectal swab (specimen) 02/15/2013 5:09 PM EDT 02/15/2013 5:09 PM EDT Comment:PENICILLIN ALLERGY?- >NO Narrative Resulting Agency Comment Spec In Lab Valentina Mae MD MICROBIOLOGY - GEN ERAL ORDERABLES [facility] * Group B Strep Culture Screen (02/15/2013 5:09 PM EDT) Group B Streptococcus Culture ? Patient Name: NORM QUEVEDO ? Ordered By: VALENTINA MAE ? MR#: [id number] ?LOC: ??5L ? /Sex: ??1975 (37 years), ? Female ? PROCEDURE: Group B Streptococcus Culture ?SOURCE: Vag/Rectal ? COLLECTED: 02/15/2013 17:09 ?FREE TEXT SOURCE: Penicillin Allergy?->No ? STARTED: 02/15/2013 17:09 ? FINAL REPORT ? Final Report ? Verified: 013 08:55 ? No Group B Streptococci isolated ? PRELIMINARY REPORT ? Preliminary Report ? Verified: 013 11:37 ? Culture in progress ? [facility] Pooled specimen from vaginal introitus and rectal swab (specimen) 02/15/2013 5:09 PM EDT 02/15/2013 5:09 PM EDT Comment:PENICILLIN ALLERGY?- >NO Narrative Resulting Agency Comment Spec In Lab Valentina Mae MD MICROBIOLOGY - GEN ERAL ORDERABLES RAFITA [facility]RA[facility]JOUC [facility] documented in this encounter Visit Diagnoses Diagnosis Unspecified high-risk - Primary documented in this encounter Care Teams Practice Or Student Teacher Relationship Specialty Start Date End Date None None PCP - General 08/18/12 09/09/21 documented as of this encounter
--- OUTSIDE RECORDS SUMMARY | 2024-03-02 14:29 | XMS_ITS | Encounter Summary ---
Author Organization [facility] Address [facility] [place] [address] Care Team Providers Care Paper Wrapping Machine Operator Name Role Phone None Primary Care Provider Unavailabl e Reason for Visit * Reason Comments Routine Visit Encounter Details Date Type Department Care Team (Latest Contact Info) Description 12/28/2012 1:00 PM EDT Routine Obstetrics [place] [address] Gamaliel Lopez MD [facility] DR OBSTETRICS [place] [address] GA: [id number] Discharge Disposition: Home Social History Tobacco Use [...] Sign Reading Time Taken Comments Blood Pressure 102/58 12/28/2012 1:10 PM EDT Pulse - - Temperature - - Respiratory Rate - - Oxygen Saturation - - Inhaled Oxygen Concentration - - Weight 66.1 kg (145 lb 12.8 oz) 12/28/2012 1:10 PM EDT Height - - Body Mass Index 27.1 11/30/2012 1:07 PM EDT documented in this encounter Patient Instructions * Patient Instructions* Gamaliel Lopez MD - 12/28/2012 1:38 PM EDT Welcome to [employer], your secure online access to your electronic medical record at [facility]. Using [employer] you will be able to send messages to your providers, view your test results, renew prescriptions, schedule appointments, and much more. Follow these instructions to enter your personal [employer] account for the first time: 1. Start your internet browser and type [email or web address] into the address bar. 2. In the New User box on the right-hand side of the Welcome page click the link that states, ???I have an activation code.?? 3. On the Identification page, follow these steps: a) Enter your [employer] activation code: [email or web address] b) Expires: 02/11/2013 1:38 PM IMPORTANT: This Activation Code will on the above mentioned date. If you do not sign up for [employer] by this date, you will need to request another activation code. c) Enter your date of , using the calendar tool provided. d) Enter your Zip code. e) Select ???submit?? to go to the next page. 4. On the Create Account page, follow these steps: a) Create a [employer] username. This can???t be changed, so choose one you won???t forget. b) Create a password that???s at least six characters long, and that contains at least two numbers.Your password can be changed at any time. Confirm your password by entering it once more. c) Enter your email address. This will be used to alert you to new information. Confirm your email address by entering it once more. d) Enter your security question. This will be used if you forget your password. e) Enter your security answer. Confirm your security answer by entering it once more. f) Select ???submit?? to view your electronic medical record. If you have any questions about [employer] or your Access Code, please call for [place], for [place] or for [place]. If you need technical support, please e-mail [email or web address]. Remember, [employer] is NOT for urgent needs! Always dial 911 for medical emergencies. documented in this encounter Progress Notes * Gamaliel Lopez MD - 12/28/2012 1:24 PM EDT Feeling well, is doing rhgoam today. She is concerned about weight gain. She is trying to exercise at least 30' day. She does not believe she is eating a lot of calories. She has a protein yogurt shake in [facility] with lots of fruit, lunch is meat and a salad and 1 portion of carbs and dinner isthe same. She believes she gained 30 pound sin her first . She very tired all day and has to nap. She tried synthroid in the past and it gave her migraines. She tried synthroid 1x and had a 4 day migraine. We discussed that her 1 weke trial of synthroid may be unrelated to the migraine. Plan: Recheck TSH, if elevated more, consider starting Amour replacement or synthroid. We will alsorefer to nutritional services. TdAP: Declines tDAP, had it in her last , we discussed risks of pertussis and poor vaccine efficacy. Gave information for child classes. documented in this encounter Miscellaneous Notes * Addendum Note - Mk Cheung - 12/28/2012 2:14 PM EDTAddended by: MK CHEUNG on: 12/28/2012 02:14 PM Modules accepted: Orders documented in this encounter Plan of Treatment Not on file documented as of this encounter Procedures Procedure Name Priority Date/Time Associated Diagnosis Comments TSH Routine 12/28/2012 2:27 PM EDT Elevated TSH T4, FREE Routine 12/28/2012 2:27 PM EDT Elevated TSH documented in this encounter Results * (ABNORMAL) T4, free (12/28/2012 2:27 PM EDT) Free T4 0.83(L) 0.90 - 1.60 ng/dL CERNER MILLENNIUM Blood specimen (specimen) 12/28/2012 2:27 PM EDT 12/28/2012 2:30 PM EDT Narrative Resulting Agency Comment Spec In Lab Gamaliel Lopez MD CHEMISTRY ORDERABLES Performing Organization Address [facility] Co de Phone Number RAFITA FERRER * TSH (12/28/2012 2:27 PM EDT) TSH 3.50 0.27 - 4.20 mcIU/mL RAFITA FERRER Blood specimen (specimen) 12/28/2012 2:27 PM EDT 12/28/2012 2:30 PM EDT Narrative Resulting Agency Comment Spec In Lab Gamaliel Lopez MD CHEMISTRY ORDERABLES Performing Organization Address [facility] Co de Phone Number RAFITA FERRER documented in this encounter Visit Diagnoses Diagnosis Elevated TSH- Primary Other abnormal blood chemistry , supervision of, high-risk Unspecified high-risk RhD negative Need for prophylactic immunotherapy documented in this encounter Care Teams Paper Wrapping Machine Operator Relationship Specialty Start Date End Date None None PCP - General 08/18/12 09/09/21 documented as of this encounter
--- OUTSIDE RECORDS SUMMARY | 2024-03-02 14:29 | XMS_ITS | Encounter Summary ---
Author Organization [facility] Address [facility] [place] [address] Care Team Providers Care [employer] Hospitalist Name Role Phone None Primary Care Provider Unavailabl e Reason for Visit * Reason Comments Routine Visit Encounter Details Date Type Department Care Team (Latest Contact Info) Description 01/31/2013 2:00 PM EDT Routine Obstetrics [place] [address] Gamaliel Lopez MD [facility] DR OBSTETRICS & [place] [address] GA: [id number] Discharge Disposition: Home Social History Tobacco Use [...] Reading Time Taken Comments Blood Pressure 102/58 01/31/2013 1:45 PM EDT Pulse - - Temperature - - Respiratory Rate - - Oxygen Saturation - - Inhaled Oxygen Concentration - - Weight 67.4 kg (148 lb 9.6 oz) 01/31/2013 1:45 P M EDT Height - - Body Mass Index 27.62 11/30/2012 1:07 PM EDT documented in this encounter Progress Notes * Gamaliel Lopez MD - 01/31/2013 1:53 PM EDT We discussed her thyroid status. She does not want any medication at this point given the late Ga. She states her last had the same complications and that her son does not have any problems. I discussed the current literature with an association with learning disabilities. She still does not have an endocrinology appointment. She will schedule an appointment with endocrinology for afterdelivery (around 6 weeks) and we will do testing just prior to the apptoinmtent, if her thyroid tests are normal, will cancel the appointment. documented in this encounter Plan of Treatment Not on file documented as of this encounter Visit Diagnoses Diagnosis , supervision of, high-risk- Primary Unspecified high-risk RhD negative Need for prophylactic immunotherapy Elevated TSH Other abnormal blood chemistry documented in this encounter Care Teams [facility] [facility] Hospitalist Relationship Specialty Start Date End Date None None PCP - General 08/18/12 09/09/21 documented as of this encounter
--- OUTSIDE RECORDS SUMMARY | 2024-03-02 14:29 | XMS_ITS | Encounter Summary ---
Author Organization Formerly [facility], 1928–1983 Address [facility] [place] [address] Care Team Providers Care Grating Machine Operator Name Role Phone None Primary Care Provider Unavailabl e Reason for Visit * Reason Comments Establish Care Encounter Details Date Type Department Care Team (Latest Contact Info) Description 11/30/2012 1:45 PM EDT Initial Obstetrics and Gynecology at [facility] [place] [address] Bernice Corona MD [facility] [address] OBSTETRICS [place] [address] GA: 24w4d Discharge Disposition: Home Social History Tobacco Use [...] Sign Reading Time Taken Comments Blood Pressure 98/56 11/30/2012 1:07 PM EDT Pulse - - Temperature - - Respiratory Rate - - Oxygen Saturation - - Inhaled Oxygen Concentration - - Weight 63.6 kg (140 lb 4.8 oz) 11/30/2012 1:07 P M EDT Height 156.2 cm (5' 1.5) 11/30/2012 1:07 PM EDT Body Mass Index 26.08 11/30/2012 1:07 PM EDT documented in this encounter Progress Notes * Jun Rapp - 11/30/2012 5:26 PM EDT Maternal Medicine New Patient Evaluation Chief Complaint Patient presents with ??? Establish Care HPI: Ms. Belkis Wilson is a 37 y.o. year old female at 24+4/7 wks GA by sure LMP of 06/11/2012 (MAURA 03/18/2012 consistent with 9 wk US; Us on 08/18/12 revealed 9w4d fetus and MAURA of 04/19/2013)who presents today as a transfer of care per patient's wishes from [facility] for elevated TSH in . Ms. Moores TSH was found to be 3.7 this (date 07/26/2012); free t4 was wnl at 0.88. She declined synthroid treatment stating she does not like the way it makes her feels (attempted in prior for elevated TSH). She overall feels well. She denies LOF, or VB. Reports +FM. Denies history of thyroid disease outside of . She has Raynaud's syndrome but denies other symptoms or diagnoses of associated autoimmune disease. Review of Systems Constitutional:no weight loss, fever, night sweats Movement: normal Contractions: none Leaking: None Patient Active Problem List Diagnoses ??? , supervision of, high-risk Team MFM transfer of care from [facility] at 24 weeks Delivery plan GBS date & Result Cystic fibrosis choice negative Aneuploidy choice declined Others screening tests Infant nutrition Childbirth education preferences Contraception plan condoms Ped/circ plans [facility] Immunizations: Influenza vaccine Accepted Declined Contraindicated x Other vaccines Indicated Not indicated Given during Tdap x Pneumovax MMR Varicella x Other ??? RhD negative Rhogam Canidiate ??? Raynaud disease Dx 20 years ago and confirmed 1 year ago ??? AMA (advanced maternal age) multigravida 35+ ??? Elevated TSH TSH 3.7 in . No h/o hypothyroid. Pt declines Synthroid. Past Medical History Diagnosis Date ??? Raynaud's disease Past Surgical History Procedure Date ??? Coccyx removal ??? Dana tooth extraction Family History Problem Relation Age of Onset ??? Congenital Anomalies Neg Hx ??? 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 Smoking status: Never Smoker ??? Smokeless tobacco: Never Used ??? Alcohol Use: No ??? Drug Use: No ??? Sexually Active: Not on file OB History Grav Para Term Abortions TAB SAB Ect Mult Living 4 1 1 2 2 1 # Outc Date GA Lbr Sourav/2nd Wgt Sex Del Anes PTL Lv 1 2007 Comments: passed spontaneously 2 TRM 2009 38w0d 3.204kg(7lb1oz) M Comments: 7 cm on arrival 3 2011 Comments: passed spontaneously 4 CUR Current Outpatient Prescriptions Medication Sig Dispense Refill ??? cholecalciferol, Vitamin D3, 400 unit tablet Take 400 Units by mouth daily. ??? [place]-3 Fatty Acids (FISH OIL) 300 mg Cap Take by mouth. ? ? VITS W-CA,FE,FA,<1MG, ( VITAMIN ORAL) Take by mouth. ??? cyanocobalamin, vitamin B-12, 100 mcg tablet Take 100 mcg by mouth daily. ? ? CALCIUM & MAGNESIUM CARBONATES ORAL Take by mouth. ??? DISCONTD: levothyroxine (SYNTHROID) 25 mcg tablet Take 1 tablet by mouth daily. 30 tablet 12 No Known Allergies Record Review: ?? O negative, antibody screen negative, GC/Chlamydia neg/neg, RPR negative, varicella positive, HIV negative, hep B negative, rubella immuna, pap 08/11/2012 negative ?? CF negative 09/09/2009 ?? Declines 2nd trimester screening Ultrasound from Today: None Physical Exam: Last Set of Vitals: BP 98/56 Ht 156.2 cm (5' 1.5) Wt 63.64 kg (140 lb 4.8 oz) BMI 26.08 kg/m2 LMP 06/11/2012 Weight - Scale: 63.64 kg (140 lb 4.8 oz) General: alert, well appearing, in no apparent distress Abdomen: abdomen is soft without significant tenderness, masses, organomegaly or guarding. Neurologic:alert, oriented, normal speech, no focal findings or movement disorder noted Psychiatric: Affect is Appropriate. Uterine Size: S=D (24 cm) FHR: 140's Assessment and Recommendations: Ms. Belkis Wilson is a 37 y.o. year old female at 24+4/7 wks GA who presents today as a transfer of care per patient's wishes from [facility] for elevated TSH inpregnancy, opting not to take Synthroid. Belkis is doing well. Will will manage her routinely. She has no issues today. Return to clinic in approximately 4 weeks, or sooner if any issues arise. I appreciate the opportunity to be involved in this patients care, and am available if further questions should arise. I saw and evaluated this patient with JUN RAPP MD, Obgyn PGY4. Bernice Corona MD Professor Obstetrics & Gynecology and Radiology [facility] * Gamaliel Elmore, RN - 11/30/2012 1:07 PM EDT Here as transfer of care from [facility]. [facility] 03/19/13. Given info on testing for GDM will do labs at [facility].Given newletter from [facility]. documented in this encounter Miscellaneous Notes * Miscellaneous - Provider, Scanning - 12/08/2012 3:19 PM EDT documented in this encounter Plan of Treatment Not on file documented as of this encounter Results * Glucose 1 Hour Post Prandial (12/28/2012 2:27 PM EDT) Glucose, 1Hr PP 98 mg/dL [facility] Blood specimen (specimen) 12/28/2012 2:27 PM EDT 12/28/2012 2:30 PM EDT Narrative Resulting Agency Comment Spec In Lab Bernice Corona MD CHEMISTRY ORDERABLES [facility] * (ABNORMAL) CBC (with Diff) (12/28/2012 2:27 PM EDT) WBC 8.1 4.0 - 10.0 x10(3)/mcL [facility] RBC 3.53(L) 3.93 - 5.22 x10(6)/mcL [facility]ERNER [...] Lab Bernice Corona MD HEMATOLOGY ORDERABLE [facility] documented in this encounter Visit Diagnoses Diagnosis , supervision of, high-risk- Primary Unspecified high-risk RhD negative Need for prophylactic immunotherapy Raynaud disease Raynaud's syndrome Elevated TSH Other abnormal blood chemistry documented in this encounter Care Teams Grating Machine Operator Relationship Specialty Start Date End Date None None PCP - General 08/18/12 09/09/21 documented as of this encounter
--- OUTSIDE RECORDS SUMMARY | 2024-03-02 14:29 | XMS_ITS | Encounter Summary ---
Author Organization [facility] Address [facility] [place] [address] Care Team Providers Care Spent Grain Dryer Name Role Phone None Primary Care Provider Unavailabl e Encounter Details Date Type Department Care Team (Late Contact Info) Description 10/01/2012 Telephone Obstetrics [place] [address] Heladio Cope MD [facility] OBSTETRICS & [place] [address] Social History Tobacco Use Types Packs/Day Years Used Date Smoking Tobacco: Never Alcohol Use Standard Drinks/Week Comments No 0 (1 standard drink = 0.6 oz pur e alcohol) Comments Yes Sex and Gender Information Value Date Recorded Sex Assigned at Not on file Gender Identity Not on file Sexual Orientation Not on file documented as of this encounter Miscellaneous Notes * Telephone Encounter - Heladio Cope MD - 10/01/2012 11:22 AM EST Pt is 16 weeks with subclinical hypothyroidism. [facility] [place] providers in [place] have not received the recommendations from that consult, and her recent repeat blood work did not include a free T3. She is going to [place] for 1 week. Would like to know if Dr. Duran feels the FT3 is important and should she have her blood drawn again? Also would like report of visit sent to her providers in [place]. HELADIO COPE MD documented in this encounter Plan of Treatment Not on file documented as of this encounter Visit Diagnoses Not on filedocumented in this encounter Care Teams Spent Grain Dryer Relationship Specialty Start Date End Date None None PCP - General 08/18/12 09/09/21 documented as of this encounter
--- OUTSIDE RECORDS SUMMARY | 2024-03-02 14:29 | XMS_ITS | Encounter Summary ---
Author Organization [facility] Address [facility] [place] [address] Care Team Providers Care Brim Plater Name Role Phone None Primary Care Provider Unavailabl e Reason for Visit * Reason Comments Routine Visit Encounter Details Date Type Department Care Team (Latest Contact Info) Description 02/27/2013 2:30 PM EDT Routine Obstetrics [place] [address] Bernice Corona MD [facility] [address] OBSTETRICS [place] [address] GA: 37w2d Discharge Disposition: Home Social History Tobacco Use [...] Sign Reading Time Taken Comments Blood Pressure 106/60 02/27/2013 2:28 PM EDT Pulse - - Temperature - - Respiratory Rate - - Oxygen Saturation - - Inhaled Oxygen Concentration - - Weight 68.4 kg (150 lb 14.4 oz) 02/27/2013 2:28 PM EDT Height - - Body Mass Index 28.05 11/30/2012 1:07 PM EDT documented in this encounter Progress Notes * Bernice Corona MD - 02/27/2013 2:56 PM EDT Feels well GBS neg Denies bleeding, leaking of fluid, pain or contractions. RTC 1, 2 weeks documented in this encounter Plan of Treatment Not on file documented as of this encounter Visit Diagnoses Diagnosis Advanced maternal age in - Primary Elderly multigravida unspecified as to episode of care or not applicable Raynaud disease Raynaud's syndrome documented in this encounter Care Teams Brim Plater Relationship Specialty Start Date End Date None None PCP - General 08/18/12 09/09/21 documented as of this encounter
--- OUTSIDE RECORDS SUMMARY | 2024-03-02 14:29 | XMS_ITS | Encounter Summary ---
Author Organization [facility] Address [facility] [place] [address] Care Team Providers Care Manager Software Development Name Role Phone None Primary Care Provider Unavailabl e Encounter Details Date Type Department Care Team (Late st Contact Info) Description 01/16/2013 10:00 AM EDT Office Visit Obstetrics and Gynecology at [facility] [place] [address] [facility] [place] [address] Excess weight gain in (Primary Dx) Social History Tobacco Use Types Packs/Day Years Used Date Smoking Tobacco: Never Smokeless Tobacco: Never Alcohol Use Standard Drinks/Week Comments No 0 (1 standard drink = 0.6 oz pur e alcohol) Comments Yes Sex and Gender Information Value Date Recorded Sex Assigned at Not on file Gender Identity Not on file Sexual Orientation Not on file documented as of this encounter Progress Notes * Bernice Carrasco RD - 01/18/2013 12:47 PM EDT Nutrition Services Education Note Patient Active Problem List Diagnoses Code ??? , supervision of, high-risk V23.9 ??? RhD negative V07.2 ??? Raynaud disease 443.0 ??? AMA (advanced maternal age) multigravida 35+ 659.63 ??? Elevated TSH 790.6 Patient seen for nutrition education for pt concern of excess weight gain in . Her pre- BMI was right around 25-26 from what pt tells me. She said after her miscarriage she didn't lose all the weight and then got again. We discussed her typical daily diet which is actually very healthy, and well balanced. We mainly discussed ways to cut back on some of the saturated fat in her diet and increase exercise (as able at this point in the ). We did discuss portion sizes of some of the things that she gets from friends/family members. Encouraged non-starchy vegetable intake and lean proteins. She is still nursing her son, who appears to be ~2 y.o. (?) She is uncertain of whether or not she will wean him before the new baby arrives. I encouraged her to discuss this with hipolito, before new baby arrives, to have a plan in place. Pt was given my contact information if questions arise. Pt stated good understanding. documented in this encounter Plan of Treatment Not on file documented as of this encounter Visit Diagnoses Diagnosis Excess weight gain in - Primary Edema or excessive weight gain in , unspecified as to episode of care documented in this encounter Care Teams Manager Software Development Relationship Specialty Start Date End Date None None PCP - General 08/18/12 09/09/21 documented as of this encounter
--- OUTSIDE RECORDS SUMMARY | 2024-03-02 14:29 | XMS_ITS | Encounter Summary ---
Author Organization [facility] [place] [address] Care Team Providers Care Mathematics Faculty Member Name Role Phone Arcelia Brice APRN Primary Care Provider [phone] Encounter Details Date Type Department Care Team (Late st Contact Info) Description 10/24/2021 10:00 AM EST [place] [address] Lazarus Jiang MD [facility] [place] [address] Paresthesia Social History Tobacco Use Types Packs/Day Years Used Date Smoking Tobacco: Never Smokeless Tobacco: Never Alcohol Use Standard Drinks/Week Comments No 0 (1 standard drink = 0.6 oz pur e alcohol) Sex and Gender Information Value Date Recorded Sex Assigned at Not on file Gender Identity Not on file Sexual Orientation Not on file documented as of this encounter Progress Notes * Lazarus Jiang MD - 10/24/2021 10:00 AM [place] [address] 10/24/2021 Patient name: Belkis Wilson Date of : 1975 Referring provider: Arcelia Brice APRN [address] [place] [address] HISTORY REASON FOR REFERRAL/CHIEF COMPLAINT: R sided tingling. HISTORY OF PRESENTING COMPLAINTS: She had third covid shot in May 2021. After that she developed tingling in her left leg which then spread to her entire body over time but was more on left side. She saw her PCP and had blood tests done which were unremarkable. The paresthesia are improved now but still persists. She has not tried any medications and hesitant to try anything. No weakness, tinnitus, vision problems. She has no significant illness from before. After the first shot of CoVID she had left arm pain, after second one symptoms were slightly more and the third one caused some exhaustion also. PMHx: Past Medical History: Diagnosis Date ??? Raynaud's disease Migraines, Subclinical hypothyroidism, Past Surgical History: Procedure Laterality Date ??? COCCYX REMOVAL ??? WISDOM TOOTH EXTRACTION Family History: Family History Problem Relation Age of Onset ??? Congenital Anomalies Neg Hx ??? Down Syndrome Neg Hx No family history of neurologic illness. Social History: reports that she has never smoked. She has never used smokeless tobacco. She reports that she does not drink alcohol and does not use drugs. 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 ibuprofen (ADVIL;MOTRIN) 600 mg tablet Take 1 tablet by mouth every 6 hours as needed for Pain (mild to moderate pain). 30 tablet 0 ??? acetaminophen (ACETAMINOPHEN PAIN RELIEF) 325 mg tablet Take 1-2 tablets by mouth every 6 hoursas needed for Pain. 30 tablet 1 ??? cholecalciferol, Vitamin D3, 400 unit tablet Take 400 Units by mouth daily. ??? [place]-3 Fatty Acids (FISH OIL) 300 mg Cap Take by mouth. ? ? VITS W-CA,FE,FA,<1MG, ( VITAMIN ORAL) Take by mouth. ??? cyanocobalamin, vitamin B-12, 100 mcg tablet Take 100 mcg by mouth daily. ? ? CALCIUM & MAGNESIUM CARBONATES ORAL Take by mouth. No current facility-administered medications on file prior to visit. Allergies: No Known Allergies EXAMINATION Vitals: There were no vitals taken for this visit. General Examination: Appearance: alert, no distress Cardiovascular: Rate regular, S1S2 normal, no murmur Respiratory: Symmetric expansion, lungs clear to auscultation Extremity: no edema Skin: No rashes noted Neurological Examination o Higher functions: - Speech: fluent, no aphasia/dysarthria or dysphonia - Alert and oriented. o Cranial Nerves - II-XII: Pupils bilaterally equal and symmetric conjugate gaze, reacting to light. No ptosis/nystagmus. Vision normal. No field deficits. EOMI. No facial droop. - Fundus: Normal vessels and disc margins. o Reflexes - +2 Bilaterally biceps, BR , knee and ankles. o Motor and Coordination - Normal tone, bulk strength and coordination of right and left sided muscles o Sensory - Normal sensations bilaterally. o Skull and Spine/ Gait - Normal - Normal gait - Tandem: Minimal imbalance. LABS AND IMAGING Labs GENERAL THYROID: Lab Results Component Value Date TSH 3.50 12/28/2012 FREET4 0.83 (L) 12/28/2012 THYROIDAB 14 09/06/2012 FolateNo results found for: SFOLATE ESRNo results found for: SEDRATE CRPNo results found for: CRP B12No results found for: [id number] CKNo results found for: CK Angiotensin ConvertaseNo results found for: LISSA INFECTIONS HIVNo results found for: HIV12 HEPATITIS PANEL Lab Results Component Value Date HEPBSAG Negative (External Lab) 08/11/2012 AUTOIMMUNE PANEL ANANo results found for: NAI DSDNANo results found for: DNAABDS Davonte results found for: BRANDON C3,C4, COMPLEMENTSNo results found for: C3, C4 CARDIOLIPIN, LUPUSNo components found for: CARDIOLIPINANTIBODY, LUPUS, ANTICOAGULANT CELIAC: TTG, GLIADIN, ENDOMYSIALNo components found for: TTRANSGLUTAMINASEANTIBODY ANTIGLIADINANTIBODY VASCULITIS: C,P,ANCA, MPONo results found for: PANCA, CANCA, MYELOP, PR3AB NMONo components found for: NEUROMYELITISOPTICAANTIBODY MG: ACHRAB, Anit MuSK, LEMSNo components found for: ACETYLCHOLINERECEPTORABBINDING, LEMSANTIBODY, ANTISKELETALMUSCLEANTIBODY CRYOGLOBULINSNo components found for: CRYOGLOBULINS METABOLIC CERULOPLASMINNo components found for: CERULOPLASMIN BETA 2 MICROGLOBULINNo results found for: B2MG No results found for: TPROTEINPEP, ALBELECT, ALPHA1, ALPHA2, GAMMAGLOB, APB1 CORTISOLNo results found for: CORTISOL LDH No results found for: LDH NUTRITIONAL VITAMIN DNo results found for: 25OHVITD PRE ALBUMINNo results found for: PREALBUMIN FERRITINNo results found for: IRON COPPERNo results found for: COPPER PERIPHERAL NEUROPATHY HEMOGLOBIN A1CNo results found for: HA1C LIPID PROFILENo results found for: CHLPL, HDL, CHOLHDL, TRIG, LDLCHOL, LDLDIRECT SHANNON 65No results found for: MTS39KO ANTI GM1,ANTI SGPG, MAG@RESUFAST (MAGAUTOAB,SGPG,MAGWB,GM1AB)@ HEAVY METAL SCREENNo results found for: LEAD, ARSENIC METHYLMLONIC ACIDNo results found for: METHYLMAL IgA, IGG No results found for: IGA, IGG CSF PANEL No results found for: NUCCELMANCSF, RBCCSFCT, SEGSCSF, LYMPHSCSF, NUMCELLCTCSF, CSFGLUC, CSFPROTEIN, XANTHOCHROM, MCSBFTYPE, MCS, CSFIGGINDEX, LYMEAB, VDRLSCRNCSF, OLIGOCSF, HSVDNA, ARBOWNILECSF, ENTVPCR, VZVPCR PARANEOPLASTIC PANEL No results found for: PARANEOINTRP, ANNA1, ANNA2, ANNA3, AGNA1, PCA1, PCA2, PCATYPETR, AMPHIPHYSIN,VKXJ3CLO, STRIATMSCLAB, CACHABPQTYPE, CACHABNTYPE, ACHRBINDAB, NEUROKCHAB, NMDARECEPTOR, RVP11WQ THROMBOSIS HOMEOCYSTEINENo results found for: HOMOCYSTEINE THROMBOSIS PANELNo results found for: ACAIGM, [id number] FACTOR V LEIDEN No components found for: FACTORVLEIDEN PROTEIN C,SNo components found for: PROTEINC, PROTEINS ANTITHROMBIN IIINo components found for: ANTITHROMBINIII Miscellaneous Send outsNo results found for: MISCSENDOUT, MISCMAYO ASSESSMENT, PLAN & RECOMMENDATIONS ASSESSMENT: 46 Y F with h/o subclinical hypothyroidism, migraines, raynaud's referred for evaluation of diffuse paresthesiae which started after 3rd COVID vaccine. Symptoms overall improving at this time. She has a non focal examination at this time. . IMPRESSION: Paresthesia - likely post vaccinial inflammation. PLAN/RECOMMENDATIONS: ??? Her symptoms seems related to post vaccinial nerve inflammation. Symptoms seems settling down slowly at this time. ??? No neurologic abnormalities at this time, therefore hold off on additional workup at this time ??? Can consider MRI Brain w/wo contrast if there is any recurrence or flare ups. ??? Recommended Multivitamin, Magnesium supplementation. Vit D / Ferritin/ TSH / B12 on follow up with PCP. ??? Follow up here as needed. Lazarus Jiang MD Department of Neurology [facility] documented in this encounter Plan of Treatment Not on file documented as of this encounter Visit Diagnoses Diagnosis Paresthesia Disturbance of skin sensation documented in this encounter Care Teams Mathematics Faculty Member Relationship Specialty Start Date End Date Arcelia Brice, BAKERY TEAM LEADER [address] [place] [place] [address] PCP - General Family Medicine 09/10/21 documented as of this encounter
--- OUTSIDE RECORDS SUMMARY | 2024-03-02 14:29 | XMS_ITS | Encounter Summary ---
Author Organization [facility] [address] Care Team Providers Care Methods Time Analyst Name Role Phone None Primary Care Provider Unavailabl e Reason for Referral * Consultation (Routine) - Closed Specialty Diagnoses / Procedures Referred By Contac t Referred To Contact Endocrinology Diagnoses , supervision of, high-risk Elevated TSH AMA (advanced maternal age) multigravida 35+ Apollo Hill MD [facility] OBSTETRICS & [place] [address] [facility] Endocrinology [address] [place] [phone] Referral ID Status Reason Start Date Expiration Date V isits Requested Visits Authorized [id number] Closed Consult, Test & Treat 01/16/2013 07/15/2013 1 1 Reason for Visit * Reason Comments Routine Visit Encounter Details Date Type Department Care Team (Latest Contact Info) Description 01/16/2013 11:15 AM EDT Routine Obstetrics [place] [address] Apollo Hill MD [facility] OBSTETRICS & [place] [address] GA: 31w2d Discharge Disposition: Home Social History Tobacco Use [...] Sign Reading Time Taken Comments Blood Pressure 102/60 01/16/2013 10:58 AM EDT Pulse - - Temperature - - Respiratory Rate - - Oxygen Saturation - - Inhaled Oxygen Concentration - - Weight 68 kg (149 lb 14.4 oz) 01/16/2013 10:58 A M EDT Height - - Body Mass Index 27.86 11/30/2012 1:07 PM EDT documented in this encounter Progress Notes * Apollo Hill MD - 01/16/2013 11:06 AM EDT Good movement. No contractions/ leaking fluid / bleeding / pain. No headache, vision changes,RUQ pain. Has TSH 3.5, which is elevated for a individual, and decreased free T4. Dr. Lopez has recommended endocrinology consultation, which I will arrange. RTC 2 weeks for visit. documented in this encounter Plan of Treatment Scheduled Referrals Name Type Priority Associated Diagnoses Orde r Schedule Referral to Endocrinology Outpatient Referral Routine , supervision of, high-risk Elevated TSH AMA (advanced maternal age) multigravida 35+ Ordered: 01/16/2013 documented as of this encounter Visit Diagnoses Diagnosis , supervision of, high-risk- Primary Unspecified high-risk Elevated TSH Other abnormal blood chemistry AMA (advanced maternal age) multigravida 35+ Elderly multigravida with antepartum condition or complication documented in this encounter Care Teams Methods Time Analyst Relationship Specialty Start Date End Date None None PCP - General 08/18/12 09/09/21 documented as of this encounter
--- OUTSIDE RECORDS SUMMARY | 2024-03-02 14:29 | XMS_ITS | Encounter Summary ---
Author Organization [facility] Address [facility] [place] [address] Care Team Providers Care Light Oil Operator Name Role Phone None Primary Care Provider Unavailabl e Encounter Details Date Type Department Care Team (Late st Contact Info) Description 03/10/2013 Telephone Obstetrics [place] [address] Valentina Choi MD [facility] DR OBSTETRICS & [place] [address] Social History Tobacco Use Types Packs/Day Years Used Date Smoking Tobacco: Never Assessed Comments Yes Sex and Gender Information Value Date Recorded Sex Assigned at Not on file Gender Identity Not on file Sexual Orientation Not on file documented as of this encounter Miscellaneous Notes * Telephone Encounter - Valentina Choi MD - 03/10/2013 7:52 PM EDT Telephone Call Belkis Wilson is a 37 y.o. at 38+6wks called reporting clear rupture of membranes. She began feeling her first contraction while we were on the phone. She [place] 1.5h away. I recommended that if she was not feeling contractions too close together and felt comfortable traveling to [facility], that she could come and be assessed here. If contractions were coming strongly and closer together, she was advised to stop at the nearest hospital. Pt understood and would like to come to [facility] for care. ERI Choi MD PGY3 documented in this encounter Plan of Treatment Not on file documented as of this encounter Visit Diagnoses Not on filedocumented in this encounter Care Teams Light Oil Operator Relationship Specialty Start Date End Date None None PCP - General 08/18/12 09/09/21 documented as of this encounter
--- OUTSIDE RECORDS SUMMARY | 2024-03-02 14:29 | XMS_ITS | Encounter Summary ---
Author Organization [facility] Address [facility] [place] [address] Care Team Providers Care Archival Records Clerk Name Role Phone None Primary Care Provider Unavailabl e Reason for Visit * Reason Comments Advice Only Encounter Details Date Type Department Care Team (Late st Contact Info) Description 09/06/2012 2:45 PM EST Office Visit Obstetrics and Gynecology at [place] [address] Valentina Mae MD [facility] DR OBSTETRICS [place] [address] Unspecified high-risk (Primary Dx) Discharge Disposition: Home Social History Tobacco Use [...] Sign Reading Time Taken Comments Blood Pressure 102/62 09/06/2012 2:18 PM EST Pulse - - Temperature - - Respiratory Rate - - Oxygen Saturation - - Inhaled Oxygen Concentration - - Weight 56.1 kg (123 lb 11.2 oz) 09/06/2012 2:18 PM EST Height - - Body Mass Index - - documented in this encounter Progress Notes * Valentina Mae MD - 09/06/2012 3:00 PM EST Diagnosis/Maternal Medicine Consult Note Belkis Wilson is a 37 year old female who is at 12 3/7 gestation. She is seen in consultation at the request of Ed Mccarthy CNM for evaluation of subclinical hypthyroidism. She was seen today for maternal- medicine consultation. She reports a long history of subclinical hypothyroidism with intermittently elevated TSH and normal T4. She has never been on synthroid. She has been seen by [facility] on at least 2 occasions regarding subclinical hypothyroidism. She denies symptoms related to overt hypothyroidism including fatigue, weight gain, dry skin, hair changes, or bowel changes. Review of Systems Constitutional:feels well Movement: absent Contractions: none Leaking: None Bleeding: None There are no active problems to display for this patient. Past Medical History Diagnosis Date ??? Raynaud's disease Past Surgical History Procedure Date ??? Coccyx removal No family history on file. Social History Occupational History ??? Not on file. Social History Main Topics ??? Smoking status: Never Smoker ??? Smokeless tobacco: Not on file ??? Alcohol Use: No ??? Drug Use: No ??? Sexually Active: Not on file OB History Grav Para Term Abortions TAB SAB Ect Mult Living 4 1 1 2 2 # Outc Date GA Lbr Sourav/2nd Wgt Sex Del Anes PTL Lv 1 2007 2 TRM 2010 38w0d 3.204kg(7lb1oz) M Comments: 7cm on arrival 3 2011 4 CUR Current Outpatient Prescriptions Medication Sig Dispense Refill ??? cholecalciferol, Vitamin D3, 400 unit tablet Take 400 Units by mouth daily. ??? [place]-3 Fatty Acids (FISH OIL) 300 mg Cap Take by mouth. ? ? VITS W-CA,FE,FA,<1MG, ( VITAMIN ORAL) Take by mouth. ??? cyanocobalamin, vitamin B-12, 100 mcg tablet Take 100 mcg by mouth daily. ? ? CALCIUM & MAGNESIUM CARBONATES ORAL Take by mouth. No Known Allergies Physical Exam BP 102/62 Wt 56.11 kg (123 lb 11.2 oz) General: NAD HEENT: normocephalic, atraumatic Abdomen: Soft, nontender Neurologic:alert, oriented, normal speech, no focal findings or movement disorder noted Psychiatric: Affect is Appropriate. Assessment and Recommendations: 37 y.o. year old female at 12 3/7 weeks gestation with suspected subclinical hypothyroidism We discussed that the thyroid gland does not produce thyroid hormone until ~ 12 weeks and is dependent on maternal sources but there after the fetus produces it own thyroid hormone. We discussed the effects of untreated overt maternal hypothyroidism in early including possible lowerscore on cognitive function test in offspring. There may be increased risk of preeclampsia, abruption and poor outcomes though there is little literature to support this. There is less information on the effects of subclinical hypothyroidism in or whether thyroid replacement improves outcomes. I suggested repeating the thyroid function testing and thyroid peroxidase antibodies today. If her TSH is > 4.20 or free T4 or T3 are low then I recommend hormone replacement. I appreciate the opportunity to be involved in this patients care, and am available if further questions should arise. VALENTINA MAE MD 09/06/2012 Cc: Ed Mccarthy CN [address] [place] [address] , with copy of ultrasound report Addendum: TSH 5.48, FT4 1.11, FT3 2.8. Called patient and discussed results. Has subclinical hypothyroidism. Recommend consider taking synthroid 25mcg QD and script called to pharmacy. [facility] review TFT results, recommend repeat testing in 4-6 weeks. documented in this encounter Miscellaneous Notes * Miscellaneous - Provider, Scanning - 09/22/2012 9:14 AM EST documented in this encounter Plan of Treatment Not on file documented as of this encounter Procedures Procedure Name Priority Date/Time Associated Diagnosis Comments THYROID PEROXIDASE ANTIBODY Routine 09/06/2012 3:06 PM EST Unspecified high-risk T3, FREE Routine 09/06/2012 3:06 PM EST Unspecified high-risk TSH Routine 09/06/2012 3:06 PM EST Unspecified high-risk T4, FREE Routine 09/06/2012 3:06 PM EST Unspecified high-risk documented in this encounter Results * Thyroid peroxidase antibody (09/06/2012 3:06 PM EST) Thyroperox Ab 14 <=34 IU/mL CERNE R MILLENNIUM Blood specimen (specimen) 09/06/2012 3:06 PM EST 09/07/2012 8:18 AM EST Narrative Resulting Agency Comment Spec In Lab Valentina Mae MD IMMUNOLOGY ORDERAB LES RAFITA ARAUJOENNIUM * T3, free (09/06/2012 3:06 PM EST) T3, Free 2.8 2.0 - 3.5 pg/mL CERNER MILLENNIUM Comment: Test Performed by: [facility] [place] [address] Door Furring Installer: Alice Sanchez, Ph.D. Blood specimen (specimen) 09/06/2012 3:06 PM EST 09/06/2012 4:07 PM EST Narrative Resulting Agency Comment Spec In Lab Valentina Mae MD CHEMISTRY ORDERABL ES Performing Organization Address [facility]/ZIP Co de Phone Number RAFITA DE LA CRUZIUM * T4, free (09/06/2012 3:06 PM EST) Free T4 1.11 0.90 - 1.60 ng/dL CERWALTER MILLENNIUM Blood specimen (specimen) 09/06/2012 3:06 PM EST 09/06/2012 3:12 PM EST Narrative Resulting Agency Comment Spec In Lab Valentina Mae MD CHEMISTRY ORDERABL ES Performing Organization Address [facility]/State/ZIP Co de Phone Number RAFITA DE LA CRUZIUM * (ABNORMAL) TSH (09/06/2012 3:06 PM EST) TSH 5.48(H) 0.27 - 4.20 mcIU/mL CERNER MILLENNIUM Blood specimen (specimen) 09/06/2012 3:06 PM EST 09/06/2012 3:12 PM EST Narrative Resulting Agency Comment Spec In Lab Valentina Mae MD CHEMISTRY ORDERABL ES [facility] documented in this encounter Visit Diagnoses Diagnosis Unspecified high-risk - Primary documented in this encounter Care Teams Archival Records Clerk Relationship Specialty Start Date End Date None None PCP - General 08/18/12 09/09/21 documented as of this encounter
--- OUTSIDE RECORDS SUMMARY | 2024-03-02 14:29 | XMS_ITS | Encounter Summary ---
Author Organization [facility] Address [facility] [place] [address] Care Team Providers Care Bilingual Middle School Teacher Name Role Phone None Primary Care Provider Unavailabl e Reason for Visit * Reason Comments Routine Visit Encounter Details Date Type Department Care Team (Latest Contact Info) Description 03/06/2013 3:00 PM EDT Routine Obstetrics [place] [address] Bernice Corona MD [facility] DR OBSTETRICS & [place] [address] GA: 38w2d Discharge Disposition: Home Social History Tobacco Use [...] Sign Reading Time Taken Comments Blood Pressure 108/62 03/06/2013 2:49 PM EDT Pulse - - Temperature - - Respiratory Rate - - Oxygen Saturation - - Inhaled Oxygen Concentration - - Weight 69.4 kg (153 lb 1.6 oz) 03/06/2013 2:49 P M EDT Height - - Body Mass Index 28.46 11/30/2012 1:07 PM EDT documented in this encounter Progress Notes * Bernice Corona MD - 03/06/2013 3:03 PM EDT Denies bleeding, leaking of fluid, pain or contractions. Plans and RTC 1 week documented in this encounter Plan of Treatment Not on file documented as of this encounter Visit Diagnoses Diagnosis Supervision of high-risk - Primary Unspecified high-risk Subclinical hyperthyroidism Thyrotoxicosis without mention of goiter or other cause, without mention of thyrotoxic crisis or storm documented in this encounter Care Teams Bilingual [employer] Teacher Relationship Specialty Start Date End Date None None PCP - General 08/18/12 09/09/21 documented as of this encounter
--- OUTSIDE RECORDS SUMMARY | 2024-03-02 14:29 | XMS_ITS | Encounter Summary ---
Author Organization [facility] Address [facility] [place] [address] Care Team Providers Care Abrasive Sawyer Name Role Phone None Primary Care Provider Unavailabl e Reason for Visit * Reason Comments Care Encounter Details Date Type Department Care Team (Latest Contact Info) Description 04/28/2013 11:30 AM EDT Visit Obstetrics and Gynecology at [facility] [place] [address] Valentina Duran MD [facility] DR OBSTETRICS & [place] [address] Subclinical hypothyroidism (Primary Dx); Routine follow-up Discharge Disposition: Home Social History Tobacco Use [...] Sign Reading Time Taken Comments Blood Pressure - - Pulse - - Temperature - - Respiratory Rate - - Oxygen Saturation - - Inhaled Oxygen Concentration - - Weight 60.3 kg (132 lb 14.4 oz) 013 12:02 PM EDT Height 156.2 cm (5' 1.5) 04/28/2013 12 :02 PM EDT Body Mass Index 24.7 04/28/2013 12:02 PM EDT documented in this encounter Progress Notes * Valentina Duran MD - 04/28/2013 1:32 PM EDT Belkis Wilson was seen today for care. She underwent a spontaneous vaginal delivery at term. Today she complains of nothing. She is nothing sexually active. She has no bleeding. She denies perineal pain. control options were discussed at length. The patient desires condoms but will consider IUD. FOB is considering vasectomy Pap smear: wnl 07/2012 Immunization status: Depression Screen score: 0 Ht 156.2 cm (5' 1.5) Wt 60.283 kg (132 lb 14.4 oz) BMI 24.70 kg/m2 LMP 06/11/2012 ? Yes NAD Lungs CTA CV RRR no MRG Abdomen soft, NT Pelvic NEFG, normal cervix, normal vagina, healed perineum, uterus small NT Assessment/Plan: Normal Pap smear: 07/2013 Control: condoms, encourage more effective contraception Follow up: Obtain PCP Additional Plans: [facility] documented in this encounter Miscellaneous Notes * Miscellaneous - Provider, Scanning - 05/03/2013 8:44 AM EDT documented in this encounter Plan of Treatment Not on file documented as of this encounter Visit Diagnoses Diagnosis Subclinical hypothyroidism- Primary Other specified acquired hypothyroidism Routine follow-up documented in this encounter Care Teams Abrasive Sawyer Relationship Specialty Start Date End Date None None PCP - General 08/18/12 09/09/21 documented as of this encounter
--- OUTSIDE RECORDS SUMMARY | 2024-03-02 14:29 | XMS_ITS | Encounter Summary ---
Author Organization [place] [address] Care Team Providers Care Threading Machine Feeder Automatic Name Role Phone None Primary Care Provider Unavailabl e Encounter Details Date Type Department Care Team (Late st Contact Info) Description 12/06/2012 External Results Obstetrics [place] [address] Gamaliel Elmore RN , supervision of, high-risk (Primary Dx) Social History Tobacco Use Types Packs/Day Years Used Date Smoking Tobacco: Never Smokeless Tobacco: Never Alcohol Use Standard Drinks/Week Comments No 0 (1 standard drink = 0.6 oz pur e alcohol) Comments Yes Sex and Gender Information Value Date Recorded Sex Assigned at Not on file Gender Identity Not on file Sexual Orientation Not on file documented as of this encounter Plan of Treatment Not on file documented as of this encounter Procedures Procedure Name Priority Date/Time Associated Diagnosis Comments INITIAL EXTERNAL RESULTS PANEL Routine 08/11/2012 documented in this encounter Results * (ABNORMAL) Initial External Lab Panel (08/11/2012) ABORH Type Ab Screen Interp Negative( External Lab) (none) Hemoglobin 12.5(Exte rnal Lab) 12.0 - 16.0 Hematocrit 37.4(Exte rnal Lab) 36.0 - 46.0 MCV 90.3(Exte rnal Lab) 82.0 - 108.0 Platelets 184(Exter nal Lab) Rubella IgG immune(Ex ternal Lab) Syphilis IgG Negative( External Lab) (none) HepB Surface Ag Negative( External Lab) (none) HIV 1/2 Ab TSH Hemoglobin A1C Cystic Fibrosis Report prior preg -(Externa l Lab) U24 Prot Calc Creat Clearance Creatinine AST 13 - 35 ALT 7 - 35 Uric Acid Urine Culture GC Gene Amp negative( External Lab) Chlamydia Gene Amp negative( External Lab) Cytopathology Final Report negative( External Lab) Group B Strep Screen Gluc Baseline Glucose 1 hour Glucose 2 hour Glucose 3 hour Oral Glucose Dose 08/11/2012 Kasandra RAMÍREZM POINT OF CARE DELFINO T ORDERABLES documented in this encounter Visit Diagnoses Diagnosis , supervision of, high-risk- Primary Unspecified high-risk documented in this encounter Care Teams Threading Machine Feeder Automatic Relationship Specialty Start Date End Date None None PCP - General 08/18/12 09/09/21 documented as of this encounter
--- OUTSIDE RECORDS SUMMARY | 2024-03-02 14:29 | XMS_ITS | Encounter Summary ---
Author Organization [facility] Address [facility] [place] [address] Care Team Providers Care Saturator Operator Name Role Phone None Primary Care Provider Unavailabl e Reason for Visit * Reason Comments Rupture of Membranes Encounter Details Date Type Department Care Team (Latest Contact Info) Description 03/10/2013 8:44 PM EDT - 03/12/2013 1:16 PM EDT [place] [id number] Bernice Cross MD [facility] [place] [address] , supervision of, high-risk (Primary Dx) Discharge Disposition: Home Social [...] Concentration - - Weight 69.4 kg (153 lb) 03/10/2013 8:00 PM EDT Height 154.9 cm (5' 1) 03/10/2013 8:00 PM EDT Body Mass Index 28.91 03/10/2013 8:00 PM EDT documented in this encounter Discharge Instructions * Discharge Instructions* Amara Robles RN - 03/12/2013 8:41 AM EDT Nurse Inpatient Note - Vaginal Delivery Follow-ups: Your follow up appts will be mailed to you. Maternal Discharge Instructions Rest: Although it may seem impossible to get enough rest, simple planning will help. Try to get at least one four hour block of uninterrupted sleep in 24 hours; then plan to rest, and/or sleep when your baby does. Limiting visitors also helps. Fathers and other family members can help by doing housework, caring for other children and/or helping limit visitors. Nutrition: Your diet following the of your baby is as important as it was before the baby wasborn. Drink a minimum of 6-8 glasses a day. Do not attempt to lose weight during the first six weeks. Continue taking your vitamins until they are gone. Lochia: (Flow) Your flow should be no heavier than a normal period. It will be bright red for 2-3 days and then pinkish and finally colorless. If your flow becomes bright red again, decrease your activity. Do not use tampons until your care provider advises you it is OK. Perineum: For about a week continue to rinse yourself with warm water when you use the toilet. A sitz bath with Epsom salts taken 3-4 times a day may help relieve soreness. Kegel exercise, done regularly throughout the day, will help tighten the perineal muscles and speed recovery. Breast feeding mothers: Practice careful positioning and frequent feeding as demonstrated in the hospital. The printed information in your packet covers this in detail. Call your doctor or threading machine tender for: Fever more than 100.5 Heavy bleeding that saturates a pad an hour Clots larger than a plum Increased abdominal pain, nausea, shaking chills Breast with hot, hard, tender areas on the breast plus flu-like symptoms depression occurs in a large percentage of women. We encourage you to contact your provider or a member of the nursing staff if you are feeling so overwhelmed that you are unable to care for yourself or your baby. Keep your follow up appointment. [facility] any time for guidance or for answers to questions that come up prior to you follow up appointment. Your [facility] Provider can be reached during office hours at [facility] AFTER OFFICE HOURS for the reproduction order processor or threading machine tender intervention teacher Provider electronic signature confirms that discharge instructions were reviewed with the patient. A copy was printed and given to the patient. documented in this encounter Medications at Time of Discharge Medication Sig Dispensed Refills Start Date End Date ibuprofen (ADVIL;MOTRIN) 600 mg tablet Take 1 tablet by mouth every 6 hours as needed for Pain (mild to moderate pain). 30 tablet 0 03/12/2013 acetaminophen (ACETAMINOPHEN PAIN RELIEF) 325 mg tablet Take 1-2 tablets by mouth every 6 hours as needed for Pain. 30 tablet 1 03/12/2013 cholecalciferol, Vitamin D3, 400 unit tablet Take 400 Units by mouth daily. Ridge-3 Fatty Acids (FISH OIL) 300 mg Cap Take by mouth. VITS W-CA,FE,FA,<1MG, ( VITAMIN ORAL) Take by mouth. cyanocobalamin, vitamin B-12, 100 mcg tablet Take 100 mcg by mouth daily. CALCIUM & MAGNESIUM CARBONATES ORAL Take by mouth. docusate sodium (COLACE) 100 mg capsule Take 1 capsule by mouth 2 times daily as needed for Constipation for 10 days. 10 capsule 03/12/2013 03/22/2013 documented as of this encounter Progress Notes * Amara Robles RN - 03/12/2013 10:57 AM EDT Pt verbalized full understanding of discharge instructions, post care, and follow up appts. Pt has no further questions or concerns at this time. * Bernice Cross MD - 03/12/2013 9:53 AM EDT Vaginal Delivery Note Information for the patient's : Kota Wilson Girl [[id number]] Delivery Date and Time:03/10/2013 10:54 PM Delivery Type: Vaginal, Spontaneous Delivery Subjective: Complains of nothing. Pain is wellcontrolled. She is tolerating diet well, urinating and ambulating well. Pt states she had no syncopal episodes yesterday or overnight. She feels good this morning and would like to be discharged home. Review of Systems Respiratory: Negative for chest tightness and shortness of breath. Cardiovascular: Negative for chest pain. Gastrointestinal: Negative for nausea and vomiting. Genitourinary: Negative for dysuria and difficulty urinating. Lochia: small Last Set of Vitals: Filed Vitals: 03/12/13 0835 BP: 102/59 Pulse: 64 Temp: 36.7 ??C (98.1 ??F) Resp: 16 Weight - Scale: 69.4 kg (153 lb) Physical Exam Nursing note and vitals reviewed. Cardiovascular: Normal rate and regular rhythm. No murmur heard. Pulmonary/Chest: Effort normal and breath sounds normal. No respiratory distress. She has no wheezes. Abdominal: Soft. She exhibits no distension. Musculoskeletal: She exhibits edema. Uterine Fundus: firm, non-tender and 2 cm below umbilicus Lochia: appropriate Perineum: not inspected Significant Labs: Lab Results Component Value Date ABORH O Neg 03/10/2013 WBC 13.1* 03/11/2013 HCT 30.8* 03/11/2013 HGB 10.3* 03/11/2013 RUBLIGG immune* 08/11/2012 Immunization status: Requires Pertussis Assessment & Plan 37 y.o. admitted for labor. PPD#2 from . no syncopal episodes overnight. Pt is doing well. She says her pain is much better and that she feels ready to go home. Pt will be discharged hometoday. Infant nutrition: breast Contraception: condoms care: 6wk routine visit with [facility] Syncope: CBC/BMP and EKG ordered yesterday show no acute reasons for the syncope. Pt has agreed to follow up with her PCP. Assessment Management of Additional Medical Issues Elevated TSH during , but pt declined synthroid. Reynaud's This patient was seen and discussed on rounds. JUDITH WHEELER MD 03/12/2013 Attending note I saw patient on rounds and agree with Dr. Wheeler's note above. The patient reports feeling well. Her bleeding is diminishing, and she is voiding without difficulty. She has adequate analgesia. afebrile, normotensive Abdomen: soft, appropriately tender, fundus below umbilicus Ext: nontender, mod edema Impression: day 2 after vaginal delivery. Doing very well. Plan: Will discharge today Bernice Cross MD * Eric Choi MD - 03/11/2013 10:14 PM EDT Talked to Tresa about PMH and FMH to investigate syncopal episodes. She has h/o syncope after her last delivery which was apparently due to orthostatic hypotension. She had no other evaluation. Alsohad syncopal episode when younger due to hypoglycemia. Has no known cardiac condition. According to Tresa her brother was diagnosed with an arrythmia after he was evaluated in the hospital for acute stress related to his mother being ill. She has no other information. He is alive and healthy. No family history of sudden . EKG here is normal sinus rhythm. Syncopal episodes were not followed by post-ictal state and seem to be related to standing. Could be orthostatic or vagal in nature. Recommended that she follow-up with her PCP. Blu Choi MD * Amara Robles RN - 03/11/2013 4:30 PM EDT RN in to check on pt and to see is she would get up and void post pike removal. Pt was doing skin to skin and feeling warm. VS WNL, temp 37.3. Infant swaddled and put in bassinette. Mon given cool cloth and fresh jug of ice water. Pt encouraged to drink and get up in 15mins with supervision. FOB at the bedside. Call light within reach. 1700: Pt up to BR, good void, and sarina care done. No syncope and pt feeling much better. * Amara Robles RN - 03/11/2013 2:36 PM EDT 03/11/13 1410 Adult Vital Signs Temp 36.9 ??C (98.4 ??F) Heart Rate 69 BP 105/55 mmHg Resp 18 Pt OOB to BR, pike dc'd and sarina care done. Pt stated that she wanted to stand up, and then she felt light headed and wanted to get back to bed quickly. Pt thought she was going to pass out, but didnot. Pt back in bed, pad and underwear put on. Pt's VS WNL. notified and updated. * Amara Robles RN - 03/11/2013 11:40 AM EDT 03/11/13 1100 Activity Activity/Level of Assistance up ad lee ann Activity Assistance Stand by assist Repositioned Turns self Pt OOB to commode, no syncope episode. Pt feels tired but not dizzy. Sarina care done and bed changed. Pt helped back to bed. Family in room now. * Bernice Cross MD - 03/11/2013 6:57 AM EDT Vaginal Delivery Note Information for the patient's : Kota Wilson Girl [[id number]] Delivery Date and Time:03/10/2013 10:54 PM Delivery Type: Vaginal, Spontaneous Delivery 24 Hour Events: - 2 episodes of syncope (most likely vasovagal) after delivery when pt tried to walk to bathroom tourinate. She was unable to void, so a pike was placed overnight. Pt's VSS, but 500cc bolus of LR was given. Pt states she had a similar episode after the delivery of her first child. Subjective: Complains of mild contractions. Pain is wellcontrolled. She is tolerating diet well. She felt faint twice after the delivery and had two episodes of syncope. Does not feel lightheaded in bed. Denies sob, cp, n/v, leg pain. Review of Systems as above Last Set of Vitals: Filed Vitals: 03/11/13 0440 BP: 105/61 Pulse: 57 Temp: Resp: 16 Weight - Scale: 69.4 kg (153 lb) Physical Exam Gen: NAD CVS: RRR Resp: cta b/l Abd: soft, ndnt, fundus firm and below umbilicus : min lochia Ext: tr edema b/l Significant Labs: Lab Results Component Value Date ABORH O Neg 03/10/2013 WBC 9.9 03/10/2013 HCT 37.4 03/10/2013 HGB 12.8 03/10/2013 RUBLIGG immune* 08/11/2012 Assessment & Plan Norm Wilson is a 37 y.o. admitted for labor. PPD#1 from . 2 syncopal episodes overnight. nutrition: breast Contraception: no method, have used condoms in the past care: 6wk routine visit Syncope: pike to be dc-ed when pt able to ambulate (UOP adequate); CBC/BMP and EKG ordered Assessment Management of Additional Medical Issues ?? Elevated TSH during , but pt declined synthroid. ?? Reynaud's This patient was seen and discussed on rounds. VALENTINA CHOI MD 03/11/2013 Attending note I saw patient on rounds and agree with Dr. Choi' note above. The patient reports feeling well. Herbleeding is diminishing, and she is voiding without difficulty. She has adequate analgesia. afebrile, normotensive Abdomen: soft, appropriately tender, fundus below umbilicus Ext: nontender, mod edema Impression: day 1 after vaginal delivery. Doing very well. Had episodes of syncope. Will do evaluation for bleeding and dysrhythmia Plan: Continue care Bernice Cross MD * Anahi Guillen - 03/10/2013 9:25 PM EDT Patient Name: Norm Wilson Patient Age: 37 y.o. Birthdate: 1975 Admit date: 03/10/2013 Attending Physician: Bernice Cross MD Labor Progress Note Subjective: The patient is tolerating labor well. The patient is using nothing for pain management. She was feeling more pressure with ambulating to the bathroom and feels that her contractions are stronger, although still only every 7 1/2 minutes or so. Objective: Temp: 36.8 ??C (98.2 ??F) 24 hr Temp: [36.8 ??C (98.2 ??F)] Heart Rate: 55 24 hr Heart Rate: [55] BP: 119/63 mmHg 24 hr BP: (119)/(63) Cervix Exam: Dilation: 5 (03/10/132120) Effacement: 90 Station: -1 OB Examiner: Jimbo PISANO Monitor Evaluation: Baseline Rate: 135 bpm (03/10/132041) Variability: Moderate Accelerations: Present Mode: Intermittent Decelerations: None Contraction Frequency: 2-8 GBS Lab Results Component Value Date GBSSCREEN Neg 02/15/2013 Assessment & Plan This is Norm Wilson who is at 38w6d. Labor Assessment: Transitioning into active labor. ?? Labor Plans: Pt feels contractions are more present with ambulation. Encouraged ambulating, unmonitored, and contractions need to be stronger and closer together to be adequate. Anticipate vaginaldelivery. ?? GBS Management:: None Required This patient was seen and examined with Dr. Choi. ANAHI GUILLEN MD 03/10/2013 * Maura Hayes RN - 03/10/2013 8:47 PM EDT 1999- pt reports a large gush of clear fluid at 1750 today. She denies bleeding, decreased movement, headache, nausea, or epigastric pain. She reports that she has had edema but is resolved yesterday. She also reports feeling a few contractions over the past hour. 2114- pt c/o feeling more vaginal pressure. MD reilly, presence requested at bedside. 2139- pt and family walking in hallways. Pt reports contractions are beginning to feel stronger. 2199- pt on birthing ball 2209- pt reports stronger contractions, pt unable to speak through them. Pt sipping ice water and voiding as needed. and paint factory worker at bedside and supportive. 2239- pt feeling urge to push. MDs and RNs at bedside. 2242- SVE by Dr Guillen: . Pt pushing with contractions 225- viable baby girl, placed directly on mother's chest. 230- placenta delivered 2304- repair in progress 2330- pericare performed, linens changed, pt given warm blanket. Baby . 0110- pt ambulated to the bathroom without issue but then fainted on the toilet. Pt assisted to wheelchair and then back to bed. Vickie BRANDON MD made aware. 0400- pt assisted to bedside commode where she fainted. Pt assisted back to bed and pike catheter inserted. GRACIE BRANDON MD updated. IV fluid bolus given documented in this encounter H&P Notes * Bernice Cross MD - 03/10/2013 8:31 PM EDT Obstetrical Term Admission Note Norm Wilson is a 37 y.o. year old female with an MAURA of 03/18/2013, by Last Menstrual Period, who is at 38w6d weeks gestation being admitted for labor management, PROM. HPI: Pt reports SROM at 5:50PM this evening of clear fluid. She called and was advised to come to [facility]. She lives over an hour away and started having contractions on the drive in. They have become more frequent and intensified since arrival. Review of Systems Obstetric Review of Systems Total Weight Gain this 14.288 kg (31 lb 8 oz) Movement: normal Contractions: starting to become regular over the last half hour 4-8 minutes apart Leaking: Date/time: 5:50PM, Amount: gush and since then a constant trickle and Color: clear Bleeding; none now There are no hospital problems to display for this patient. Active Non-Hospital Problems Diagnoses ??? , supervision of, high-risk ??? RhD negative ??? Raynaud disease ??? AMA (advanced maternal age) multigravida 35+ ??? Elevated TSH Past Medical History Diagnosis Date ??? Raynaud's disease Past Surgical History Procedure Date ??? Coccyx removal ??? Hardin tooth extraction OB History Grav Para Term Abortions TAB SAB Ect Mult Living 4 1 1 2 2 1 # Outc Date GA Lbr Sourav/2nd Wgt Sex Del Anes PTL Lv 1 CUR 2 2007 Comments: passed spontaneously 3 TRM 2009 38w0d 3.204kg(7lb1oz) M Comments: 7 cm on arrival 4 2011 Comments: passed spontaneously Prior to Admission Medications Prescriptions prior to admission Medication Sig Dispense Refill ??? cholecalciferol, Vitamin D3, 400 unit tablet Take 400 Units by mouth daily. ??? Ridge-3 Fatty Acids (FISH OIL) 300 mg Cap Take by mouth. ? ? VITS W-CA,FE,FA,<1MG, ( VITAMIN ORAL) Take by mouth. ??? cyanocobalamin, vitamin B-12, 100 mcg tablet Take 100 mcg by mouth daily. ? ? CALCIUM & MAGNESIUM CARBONATES ORAL Take by mouth. Allergies No Known Allergies Family History Problem Relation Age of Onset ??? Congenital Anomalies Neg Hx ??? 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 Smoking status: Never Smoker ??? Smokeless tobacco: Never Used ??? Alcohol Use: No ??? Drug Use: No ??? Sexually Active: Not on file Immunization History There is no immunization history on file for this patient. Last Set of Vitals: @VS24@ Weight - Scale: 69.4 kg (153 lb) Physical Exam Uterine Size: S=D Clinical EFW: 7.5lbs Sterile Speculum: pooled fluid, Nitrizine test is positive, Ferning test is positive Cervix Exam: Dilation: 5 (03/10/132015) Effacement: 90 Station: -1 OB Examiner: Jimbo PISANO Pelvis: average Presentations: Cephalic Heart Rate Interpretation: FHR Fetus A: Baseline Rate: 135 bpm (03/10/132041) Variability: Moderate Accelerations: Present Mode: Intermittent Decelerations: None Lab Review Lab Results Component Value Date ABORH O Neg 12/28/2012 HCT 33.8* 12/28/2012 HGB 10.9* 12/28/2012 MCV 95.8* 12/28/2012 RUBLIGG immune* 08/11/2012 GCAMP negative* 08/11/2012 CHLMGENE negative* 08/11/2012 No results found for this basename: GLUCDOSE, GLUCBASELINE, [id number], LABGLUC2, LABGLUC3, Lab Results Component Value Date GBSSCREEN Neg 02/15/2013 Assessment & Plan Norm Wilson is a 37 y.o. year old female with an 03/18/2013, by Last Menstrual Period who is at 38w6d weeks gestation being admitted for labor management, PROM. ?? Labor State: Active phase labor. ?? Heart Rate Assessment: Category 1 ?? Labor management: Continue present management., Anticipate vaginal delivery. Intermittant monitoring. ?? GBS Management: None Required This patient was seen with Dr. Choi and plan formulated together. ANAHI GUILLEN MD 03/10/2013 Attending note I saw and evaluated the patient with Dr Guillen I have reviewed the resident's history during the visit and I agree with the details as written. My physical examination confirms and/or revises the resident's findings. The assessment and plan were formulated in discussion with me at the time of the visit and I agree with them as documented. We will admit her for labor and delivery management. Bernice Cross MD documented in this encounter Miscellaneous Notes * Plan of Care - Amara Robles RN - 03/12/2013 8:40 AM EDT Problem: (Adult, Pediatric, [place], NICU, Obstetric) Intervention: Assistance (Obstetric) Pt is independent and comfortable with breast feeding. * Plan of Care - Amara Robles RN - 03/12/2013 8:39 AM EDT Problem: Following Vaginal Delivery (Adult, Obstetric) Intervention: Minimize Bleeding (Obstetric) Education given r/t post bleeding when home. Pt has no further questions. Fundus is firm andflow is WNL. * Plan of Care - Bernice Henderson RN - 03/12/2013 6:58 AM EDT Problem: Following Vaginal Delivery (Adult, Obstetric) Intervention: Personal Hygiene Promotion Patient OOB voided last evening and proceeded to shower without difficulty. No more episodes of dizziness.EK * Miscellaneous - Provider, Scanning - 03/11/2013 4:37 PM EDT * Plan of Care - Amara Robles RN - 03/11/2013 9:47 AM EDT Problem: Following Vaginal Delivery (Adult, Obstetric) Intervention: Syncope Management (Obstetric) This pt has had two episodes of syncope overnight. Plan to help to bedside commode later this morning with two person assist. Labs ordered and EKG to be done. Pt breast feeding now and husbandin the ED for a sore throat. Pt oriented to call light and within reach. * L&D Delivery Note - Bernice Cross MD - 03/11/2013 12:16 AM EDT Delivery Note Norm Wilson is a 37 y.o. year old woman at 38w6d weeks gestational age who presented with PROM and subsequent spontaneous onset of contractions. No analgesia. She was found to be complete at 22:43 with the presenting part at +2 station. She pushed for 11 minutes and spontaneously delivered at 22:54 hrs. The infant's head was delivered in a controlled fashion. There was no nuchal cord. The body was delivered without incident over an intact perineum. A viable female was placed on maternal chest and had APGARS of 9 and 9 at 1 and 5 minutes and had a weight of 3490g. The cord was clamped in 2 places and transected. Cord blood was taken. The fundusbecame firm with massage and pitocin. The placenta delivered spontaneously after 7 minutes and it was a 3-vessel cord. Inspection of the vagina and perineum revealed a 2nd degree laceration which wasrepaired in layers with 3-0 vicryl suture using local anesthesia. The cervix, sulci, and rectum were examined and found to be intact. No complications. Blood loss estimated at <500ccs. She was in stable condition after delivery. The infant remained in stable condition at the bedside. Information for the patient's : Kota Wilson [[id number]] DELIVERY SUMMARY FOR Kota Wilson (please note there is a separate summary for each fetus) LABOR EVENTS Kota Wilson Labor Onset Type: spontaneous onset of labor Labor Onset Date: 03/10/2013 Induction: Indications for Induction of Labor: Induction Methods: Augmentation: None Complications: Rupture Date: 03/10/2013 Rupture Time: 5:50 PM Rupture Type: Spontaneous Fluid Color: Clear DELIVERY EVENTS Kota Wilson Delivery Type: Vaginal Presentation/Position Kota Wilson : Vertex Middle Failed Operative Delivery: Anesthesia Method :None [250];Local [251] Analgesic: Episiotomy: None Lacerations: 2nd Comments: Repair Suture: Synthetic Rapid Absorbable Repair # of Packets: Blood Loss (ml): 250 Placenta: Delivered: 03/10/2013 11:01 PM Removal: Spontaneous Appearance: Intact Comment: Maternal Procedures with Delivery: Attempted ?: no INFORMATION Kota Wilson 03/10/2013 10:54 PM by Vaginal, Spontaneous Delivery Sex: female Gestational Age: 38.9 weeks. [place] Measurements: Weight: 7 lb 11.1 oz (3490 g) Height: 19.5 Head Circumference: 35.6 cm ChestCircumference: Observed Anomalies: Delivery Clinician: Anahi Guillen Other Providers: Gas Roller Operator Resident Delivery Nurse Registered Nurse Bernice QUIROS Staff Present: Delivery Location: delivery room Living?: Yes APGARS One Minute Five Minutes Ten Minutes Skin Color: 1 1 Heart Rate: 2 2 Grimace: 2 2 Muscle Tone: 2 2 Breathin 2 Totals: 9 9 INTERVENTIONS Kota Wilson Resuscitation:Suctioning Suctioning Method: Suctioning [2] Vocal Cords Visualized: Meconium: Resuscitation Comment: Medications: Meds Given: erythromycin Naloxone Given?: no Amount (mg): Injection Site: Cord Information: 3 Vessels Disposition of Cord Blood: Lab Blood Gases Sent? No Cord Insertion: normal Cord Complications: None [1] Cord Comment: LABOR LENGTH 1st Stage (hrs/min): 2.00 27.00 2nd Stage (hrs/min): 0.00 11.00 3rd Stage (hrs/min);0.00 7.00 ADDITIONAL DELIVERY DETAILS DELIVERY Delivery Type: Vaginal, Spontaneous Delivery [250] Major Indications-: Contributing Factors-: Delivery Comment: Uterine Scar Status if Prior Section: ADDITIONAL DELIVERY DETAILS VAGINAL DELIVERY Vaginal Delivery Type: Vaginal, Spontaneous Delivery [250] Major Indications-Operative Delivery: Contributing Factors-Operative Vaginal: Rotation: Total Number of Pulls: Total Time Forceps Applied: Forceps: Forceps Type: Total Time Vacuum Applied: Number of Popoffs: Vacuum: Breech: Nuchal Arm: RUPTURE OF MEMBRANES FETUS B-E Attending note I supervised the delivery described above and agree with this note. I was present and I participated in the entire delivery. Bernice Cross MD * Discharge Summary - Valentina Choi MD - 03/10/2013 11:43 PM EDT Inpatient Obstetrics - Discharge Summary Patient Name: Norm Wilson Patient Age: 37 y.o. Birthdate: 1975 Admit date: 03/10/2013 Discharge date and time: 03/12/13 Attending Physician: Bernice Cross MD Care Provider: [facility] Referring Hospital: n/a Discharge Diagnoses (Hospital Problems) and Secondary Diagnoses (Chronic Problems) There are no hospital problems to display for this patient. Active Non-Hospital Problems Diagnoses ??? , supervision of, high-risk Team MFM transfer of care from [facility] at 24 weeks Delivery plan GBS date & Result Cystic fibrosis choice Negative from prior Aneuploidy choice declined Others screening tests Infant nutrition Childbirth education preferences Contraception plan condoms Ped/circ plans [facility] Immunizations: Influenza vaccine Accepted Declined Contraindicated x Other vaccines Indicated Not indicated Given during Tdap x Pneumovax MMR Varicella x Other ??? RhD negative Rhogam Canidiate Will be getting her 28 week Rhogam at [facility] ??? Raynaud disease Dx 20 years ago and confirmed 1 year ago ??? AMA (advanced maternal age) multigravida 35+ ??? Elevated TSH TSH 3.7 in . No h/o hypothyroid. Pt declines Synthroid. Operations/Major Procedures: Discharged Condition: good Contraceptive Plans: condoms Indication for Admission: Labor Admission History (per admit note) Norm Wilson is a 37 y.o. [id number] 38w6d (MAURA of 03/18/2013 by LMP) was admitted for labor management, PROM. Pt reports lof at 5:50PM this evening of clear fluid. She called and was advised to come to [facility]. She lives over an hour away and started having contractions on the drive in. They have become more frequent and intensified since arrival. She denied vb but reported +fm. She was found to be 5/90/-1 and grossly ruptured. The decision was made to admit her for labor management. Hospital Course Including Delivery and Events Norm continued to have strong contractions and progressed in cervical dilation. She declined analgesics for labor. She was found to be complete at 22:43 with the presenting part at +2 station. She pushed for 11 minutes and spontaneously delivered at 22:54 hrs. The 's head was delivered in a controlled fashion. There was no nuchal cord. The body was delivered without incident over an intact perineum. A viable female was placed on maternal chest and had APGARS of 9 and 9 at 1 and 5 minutes and had a weight of 3490g. The cord was clamped in 2 places and transected. Cord blood was taken. The fundusbecame firm with massage and pitocin. The placenta delivered spontaneously after 7 minutes and it was a 3-vessel cord. Inspection of the vagina and perineum revealed a 2nd degree laceration which wasrepaired in layers with 3-0 vicryl suture using local anesthesia. The cervix, sulci, and rectum were examined and found to be intact. No complications. Blood loss estimated at <500ccs. She was in stable condition after delivery. The infant remained in stable condition at the bedside. Norm had 2 syncopal episodes in the night following the delivery. A CBC was wnl and an EKG showed a shortened CO interval, though nothing grossly abnormal that would require further cardiology workup/interventions. She reported a similar incident after the of her last child. On PPD#1, shehad a presyncopal episode. She was encouraged to stay hydrated and rested. By HD#2, the pt was eating, voiding, and ambulating well. Her pain was well controlled. She was discharged home on PPD#2 with a 6wk visit. She decided on condoms for contraception. Delivery Information Information for the patient's : Kota Wilson [[id number]] INFORMATION Kota Wilson 03/10/2013 10:54 PM by Vaginal, Spontaneous Delivery Sex: female Gestational Age: 38.9 weeks. [place] Measurements: Weight: 7 lb 11.1 oz (3490 g) APGARS One Minute Five Minutes Ten Minutes Totals: 9 9 EBL: 250cc Important Studies and Lab Data: Recent Labs Basename 03/11/13 1100 03/10/13 2135 WBC 13.1* 9.9 HGB 10.3* 12.8 HCT 30.8* 37.4 PLATELET 124* 125* Pending Studies and Lab Data: Placenta Updated Allergies/ADRs: No Known Allergies Discharge Medications: Discharge Medication List as of 03/12/2013 8:41 AM Continued medications, unchanged Details cholecalciferol, Vitamin D3, 400 unit tablet Take 400 Units by mouth daily. , Oral, DAILY, Until Discontinued, Historical Med Ridge-3 Fatty Acids (FISH OIL) 300 mg Cap Take by mouth. , Oral, Until Discontinued, Historical Med VITS W-CA,FE,FA,<1MG, ( VITAMIN ORAL) Take by mouth. , Oral, Until Discontinued, Historical Med cyanocobalamin, vitamin B-12, 100 mcg tablet Take 100 mcg by mouth daily. , Oral, DAILY, Until Discontinued, Historical Med CALCIUM & MAGNESIUM CARBONATES ORAL Take by mouth. , Oral, Until Discontinued, Historical Med Discharge to: Home Follow-up Recommendations for Providers: None Instructions Given to Patient at Discharge: Provider Instructions None General Instructions Nurse Inpatient Note - Vaginal Delivery Follow-ups: Your follow up appts will be mailed to you. Maternal Discharge Instructions Rest: Although it may seem impossible to get enough rest, simple planning will help. Try to get at least one four hour block of uninterrupted sleep in 24 hours; then plan to rest, and/or sleep when your baby does. Limiting visitors also helps. Fathers and other family members can help by doing housework, caring for other children and/or helping limit visitors. Nutrition: Your diet following the of your baby is as important as it was before the baby wasborn. Drink a minimum of 6-8 glasses a day. Do not attempt to lose weight during the first six weeks. Continue taking your vitamins until they are gone. Lochia: (Flow) Your flow should be no heavier than a normal period. It will be bright red for 2-3 days and then pinkish and finally colorless. If your flow becomes bright red again, decrease your activity. Do not use tampons until your care provider advises you it is OK. Perineum: For about a week continue to rinse yourself with warm water when you use the toilet. A sitz bath with Epsom salts taken 3-4 times a day may help relieve soreness. Kegel exercise, done regularly throughout the day, will help tighten the perineal muscles and speed recovery. Breast feeding mothers: Practice careful positioning and frequent feeding as demonstrated in the hospital. The printed information in your packet covers this in detail. Call your doctor or threading machine tender for: Fever more than 100.5 Heavy bleeding that saturates a pad an hour Clots larger than a plum Increased abdominal pain, nausea, shaking chills Breast with hot, hard, tender areas on the breast plus flu-like symptoms depression occurs in a large percentage of women. We encourage you to contact your provider or a member of the nursing staff if you are feeling so overwhelmed that you are unable to care for yourself or your baby. Keep your follow up appointment. You may call the [facility] at any time for guidance or for answers to questions that come up prior to you follow up appointment. Your [facility] Provider can be reached during office hours at [facility] Follow-[facility] AFTER OFFICE HOURS for the reproduction order processor or threading machine tender intervention teacher Provider electronic signature confirms that discharge instructions were reviewed with the patient. A copy was printed and given to the patient. Future Appointments and Orders Future Orders Please Complete By Expires Follow-up [SEC964 Custom] Process Instructions: Scheduling Instructions: Comments: - visit 6 weeks after delivery with [facility] provider. Questions: Responses: Provider Contact Information: [facility] BUILDING [employer]ULATION SUPERVISOR Department, Discharge References/Attachments: Discharge References/Attachments None Signed: VALENTINA CHOI MD 03/13/2013 documented in this encounter Plan of Treatment Not on file documented as of this encounter Procedures Procedure Name Priority Date/Time Associated Diagnosis Comments DIFFERENTIAL, AUTOMATED Routine 03/11/2013 11:00 AM EDT CBC (WITH DIFF) Routine 03/11/2013 11:00 AM EDT BASIC METABOLIC PANEL (NON-FASTING) Routine 03/11/2013 11:00 AM EDT EKG 12-LEAD Routine 03/11/2013 10:58 AM EDT , supervision of, high-risk SPECIMEN TO PATHOLOGY (NON-OR) Routine 03/10/2013 11:45 PM EDT AB COMMENT Routine 03/10/2013 9:35 PM EDT DIFFERENTIAL, AUTOMATED Routine 03/10/2013 9:35 PM EDT ANTIBODY IDENTIFICATION Routine 03/10/2013 9:35 PM EDT ABO/RH TYPING Routine 03/10/2013 9:35 PM EDT CBC (WITH DIFF) Routine 03/10/2013 9:35 PM EDT ANTIBODY SCREEN Routine 03/10/2013 9:35 PM EDT TYPE AND SCREEN ([facility]/CGP/PAM) Routine 03/10/2013 9:35 PM EDT SURGICAL PATHOLOGY REPORT Routine 03/10/2013 11:44 AM EDT documented in this encounter Results * (ABNORMAL) Differential, Automated (03/11/2013 11:00 AM EDT) Neutrophils % 85.8(H) 34.0 - 71.0 % CERNER MILLENNIUM Neutr Abs (ANC) 11.22(H) 1.50 - 6.30 x10(3)/mc L CERNER MILLENNIUM Lymphocytes % 9.2(L) 19.0 - 53.0 % CERNER MILLENNIUM Lymphocytes Abs 1.2 1.0 - 3.6 x10(3)/mc L CERNER MILLENNIUM Monocytes % 4.8 4.0 - 13.0 % CERNER MILLENNIUM Monocyte Abs 0.6 0.2 - 1.0 x10(3)/mc L CERNER MILLENNIUM Eosinophils % 0.0 0.0 - 7.0 % CERNER MILLENNIUM Eosinophils Abs 0.0 0.0 - 0.5 x10(3)/mc L CERNER MILLENNIUM Basophils % 0.0 0.0 - 2.0 % CERNER MILLENNIUM Basophils Abs 0.0 0.0 - 0.2 x10(3)/mc L CERNER MILLENNIUM Immature Gran % 0.20 0.00 - 0.66 % CERNER MILLENNIUM Comment: Immature granulocytes(IG's)percentage and absolute count will include metamyelocytes, myelocytes, and promyelocytes. Blood smears from CBCs yielding IG's will be scanned manually for concordance. If this scan disagrees with the automated IG or if promyelocytes are noted, a manual differential will be performed. Kate Gran Abs 0.03 0.00 - 0.05 x10(3)/mc L CERNER MILLENNIUM Blood specimen (specimen) 03/11/2013 11:00 AM EDT 03/11/2013 11:21 AM EDT Bernice Cross MD HEMATOLOGY ORDERABLE S CERNER MILLDIONTEIUM * (ABNORMAL) Basic Metabolic Panel (non-fasting) (03/11/2013 11:00 AM EDT) Glucose Lvl 99 60 - 199 mg/dL CERNER MILLENNIUM Comment:Diabetes: >=200 mg/d L plus symptoms BUN 12 8 - 18 mg/dL CERNER MILLENNIUM Creatinine 0.51(L) 0.70 - 1.20 mg/dL CERNER MILLENNIUM Comment: Please note that the pediatric reference intervals supplied above were not validated at [facility]. Results from pediatric patients should be interpreted in conjunction to the patient's age, height and muscle mass. Sodium 136 135 - 145 mmol/L CERNER MILLENNIUM Potassium 3.5 3.5 - 5.0 mmol/L CERNER MILLENNIUM Comment: Please note: ??Patients with WBC >100,000 may have falsely elevated Potassium levels. ??For accurate Potassium quantification in these patients send serum separator tube (gold top) for subsequent determinations. ??Contact the Clinical Chemistry Laboratory if there are any questions. Chloride 105 98 - 107 mmol/L CERNER MILLENNIUM CO2 20(L) 22 - 31 mmol/L CERNER MILLENNIUM Anion Gap 11 5 - 15 mmol/L CERNER MILLENNIUM Calcium 8.7 8.5 - 10.5 mg/dL CERNER MILLENNIUM Estimated GFR >60 >=60 CERNER MILLENNIUM Comment: This estimated GFR (eGFR) value was calculated using the MDRD equation which has been validated on patients between the ages of 18 and 70. The MDRD should not be used to assess kidney function in patients < 18 years of age or in patients with extremes of body mass, or in patients with acute kidney failure. This value should be multiplied by 1.2 for patients. For further information please copy and paste the following links into your internet browser. http://www.nkdep.nih.gov/lab-evaluation.shtml http://www.kidney.org/professionals/ Blood specimen (specimen) 03/11/2013 11:00 AM EDT 03/11/2013 11:21 AM EDT Narrative Resulting Agency Comment Spec In Lab Bernice Cross MD CHEMISTRY ORDERABLES Performing Organization Address [facility] Co de Phone Number RAFITA ARAUJOENNIUM * (ABNORMAL) CBC (with Diff) (03/11/2013 11:00 AM EDT) WBC 13.1(H) 4.0 - 10.0 x10(3)/mcL CERNER MILLENNIUM RBC 3.28(L) 3.93 - 5.22 x10(6)/mcL CERNER MILLENNIUM Hemoglobin 10.3(L) 11.2 - 15.7 gm/dL CERNER MILLENNIUM Hematocrit 30.8(L) 34.0 - 45.0 % CERNER MILLENNIUM MCV 93.9 79.0 - 94.0 fL CERNER MILLENNIUM MCH 31.4 26.6 - 32.2 pg CERNER MILLENNIUM MCHC 33.4 32.0 - 36.5 gm/dL CERNER MILLENNIUM Platelets 124(L) 145 - 370 x10(3)/mcL CERNER MILLENNIUM RDWSD 46.0 35.0 - 46.0 fL CERNER MILLENNIUM RDWCV 13.5 10.9 - 14.4 % CERNER MILLENNIUM MPV 11.3 9.0 - 12.0 fL CERNER MILLENNIUM Blood specimen (specimen) 03/11/2013 11:00 AM EDT 03/11/2013 11:21 AM EDT Narrative Resulting Agency Comment Spec In Lab Bernice Cross MD HEMATOLOGY ORDERABLE S Performing Organization Address City/[facility]/ZIP Co de Phone Number RAFITA FERRER * EKG 12 Lead (03/11/2013 10:58 AM EDT) Ventricular rate 69 BPM MUSE SYSTEM Atrial Rate 69 BPM MUSE SYSTEM P-R Interval 104 ms MUSE SYSTEM QRS Duration 70 ms MUSE SYSTEM Q-T Interval 380 ms MUSE SYSTEM QTC Calculated (Bezet) 407 ms MUSE SYSTEM Calculated P Gravity 14 degrees MUSE SYSTEM Calculated R Gravity 62 degrees MUSE SYSTEM Calculated T Gravity 49 degrees MUSE SYSTEM INTERPRETATION Sinus rhythm with short CO Otherwise normal ECG No previous ECGs available Confirmed by MD REJI, JODEE ([id number]) on 03/12/2013 11:11:29 AM MUSE SYSTEM 03/11/2013 10:5 8 AM EDT 03/12/2013 11:11 AM EDT Bernice Cross MD ECG ORDERABLES Performing Organization Address [facility] Co de Phone Number MUSE SYSTEM * Specimen to Pathology (NON-OR) (03/10/2013 11:45 PM EDT) AP Specimen 03/10/2013 11:4 5 PM EDT 03/10/2013 11:45 PM EDT Narrative CERNER MILLENNIUM - 03/10/2013 11:45 PM EDT Specimen requisition ordered. ??Separate Pathology report to follow Bernice Cross MD PATHOLOGY/CYTOLOGY O RDERABLES Performing Organization Address [facility] de Phone Number [facility] * Ab Comment (03/10/2013 9:35 PM EDT) Ab Information INTERPRETATION : The patient's specimen shows the presence of the antibody anti-D. ??The patient is negative for the RhD antigen. The patient recently received RhIg; the reactivity in the specimen almost certainly represents passive anti-D. ??Unit selection is per routine. Rosio Godfrey MD Transfusion Medicine Service 03/17/13 16:39 [facility] Comment: Rosio Godfrey, Pathologist Verified:03/17/13 Blood specimen (specimen) 03/10/2013 9:35 PM EDT 03/10/2013 9:43 PM EDT Narrative Resulting Agency Comment Spec In Lab Bernice Cross MD BLOOD BANK LAB ORDER TAN Performing Organization Address [facility] de Phone Number [facility] * Antibody identification (03/10/2013 9:35 PM EDT) Ab Identified [facility] Blood specimen (specimen) 03/10/2013 9:35 PM EDT 03/10/2013 9:43 PM EDT Narrative Resulting Agency Comment Spec In Lab Bernice Cross MD BLOOD BANK LAB ORDER TAN Performing Organization Address City/State/[facility] Co de Phone Number CERNER GAYLEENNIUM * (ABNORMAL) Differential, Automated (03/10/2013 9:35 PM EDT) Neutrophils % 75.3(H) 34.0 - 71.0 % CERNER MILLENNIUM Neutr Abs (ANC) 7.47(H) 1.50 - 6.30 x10(3)/mc L CERNER MILLENNIUM Lymphocytes % 18.0(L) 19.0 - 53.0 % CERNER MILLENNIUM Lymphocytes Abs 1.8 1.0 - 3.6 x10(3)/mc L CERNER MILLENNIUM Monocytes % 6.1 4.0 - 13.0 % CERNER MILLENNIUM Monocyte Abs 0.6 0.2 - 1.0 x10(3)/mc L CERNER MILLENNIUM Eosinophils % 0.1 0.0 - 7.0 % CERNER MILLENNIUM Eosinophils Abs 0.0 0.0 - 0.5 x10(3)/mc L CERNER MILLENNIUM Basophils % 0.1 0.0 - 2.0 % CERNER MILLENNIUM Basophils Abs 0.0 0.0 - 0.2 x10(3)/mc L CERNER MILLENNIUM Immature Gran % 0.40 0.00 - 0.66 % CERNER MILLENNIUM Comment: Immature granulocytes(IG's)percentage and absolute count will include metamyelocytes, myelocytes, and promyelocytes. Blood smears from CBCs yielding IG's will be scanned manually for concordance. If this scan disagrees with the automated IG or if promyelocytes are noted, a manual differential will be performed. Kate Gran Abs 0.04 0.00 - 0.05 x10(3)/mc L CERNER MILLENNIUM Blood specimen (specimen) 03/10/2013 9:35 PM EDT 03/10/2013 9:42 PM EDT Bernice Cross MD HEMATOLOGY ORDERABLE S RAFITA DE LA CRUZIUM * Antibody screen (03/10/2013 9:35 PM EDT) Pathologist [facility] Ab Screen Interp Positive RAFITA ARAUJOENNIUM Expires at [id number] on: [id number] RAFITA ARAUJOENNIUM Blood specimen (specimen) 03/10/2013 9:35 PM EDT 03/10/2013 9:43 PM EDT Narrative Resulting Agency Comment Spec In Lab Berince Cross MD BLOOD BANK LAB ORDER TAN RAFITA DE LA CRUZIUM * ABO/Rh Typing (03/10/2013 9:35 PM EDT) Pathologist [facility] ABORH Type O Neg RAFITA DE LA CRUZIUM Blood specimen (specimen) 03/10/2013 9:35 PM EDT 03/10/2013 9:43 PM EDT Narrative Resulting Agency Comment Spec In Lab Bernice Cross MD BLOOD BANK LAB ORDER TAN Performing Organization Address [facility]/ZIP Co de Phone Number RAFITA DE LA CRUZIUM * (ABNORMAL) CBC (with Diff) (03/10/2013 9:35 PM EDT) Pathologist [facility] WBC 9.9 4.0 - 10.0 x10(3)/mcL [facility] MILLENNIUM RBC 4.01 3.93 - 5.22 x10(6)/mcL [facility] MILLENNIUM Hemoglobin 12.8 11.2 - 15.7 gm/dL [facility] MILLENNIUM Hematocrit 37.4 34.0 - 45.0 % [facility] MILLENNIUM MCV 93.3 79.0 - 94.0 fL [facility] MILLENNIUM MCH 31.9 26.6 - 32.2 pg [facility] MILLENNIUM MCHC 34.2 32.0 - 36.5 gm/dL [facility] MILLENNIUM Platelets 125(L) 145 - 370 x10(3)/mcL CERNER MILLENNIUM RDWSD 45.8 35.0 - 46.0 fL [facility] MILLENNIUM RDWCV 13.4 10.9 - 14.4 % [facility] MILLENNIUM MPV 11.3 9.0 - 12.0 fL RAFITA FERRER Blood specimen (specimen) 03/10/2013 9:35 PM EDT 03/10/2013 9:42 PM EDT Narrative Resulting Agency Comment Spec In Lab Bernice Cross MD HEMATOLOGY ORDERABLE S RAFITA FERRER * Surgical Pathology Report (03/10/2013 11:44 AM EDT) Surgical Pathology Report ? [facility] ? Provider: ?? BERNICE CROSS ?Pt. Name: ?? NORM WILSON ? Acc #: ?[id number] ?Pt. ? Col Date: ?? 03/10/2013 ? /Sex: ?1975,(37 ? years),Female ? Rec Date: ?? 03/13/2013 ? LOC: ?BP ? SURGICAL PATHOLOGY ? ---Pathologic Diagnosis--- ? Placenta (347 grams): ?1. Third-trimester placenta. ?2. No evidence of chorioamnionitis or funisitis. ? CR-0 ? 03/15/13 ? JLG ? 03/15/13 Verified by: ? Mike Stephens MD ? Pathologist ? (Electronic Signature) ? The attending pathologist whose signature appears on this report has ? reviewed all diagnostic slides and has edited the gross and/or ? microscopic portion of the report in rendering the final pathologic ? diagnosis. ? ---Gross Description--- ? A - Labeled/Fixative: Placenta, fresh. ? Qty/Size/Weight: Single, 19 x 16 x 1.5 centimeter, 347 grams. ? Tissue Description: Intact, rgacia, discoid placenta. ? Membranes: Circum-marginate insertion, pink and glistening, translucent. ? Cord: 42 x 1 cm; three vessels; central insertion. ? Surface: Blue-deal, translucent, no evidence of subchorionic ? hemorrhage; small deposits of subchorionic fibrin noted. ? Maternal Surface: Intact, complete, with adherent thrombus. ? Parenchyma: Beefy red, rare white stringy fibrinous deposits. ? Sections/Processing : (1) membrane roll; (2) proximal and distal cord; (3) ? surface; (4) maternal surface. (R4) ??rr ? ---Clinical Information--- ? Specimen Submitted: ? A - Placenta ? Clinical History: ? 37-year-old at 38+6 weeks. ? Clinical Diagnosis: ? Labor. RAFITA FERRER 03/10/2013 11:4 4 AM EDT Bernice Cross MD PATHOLOGY/CYTOLOGY Tamiko EPSTEIN RAFITA FERRER documented in this encounter Visit Diagnoses Diagnosis , supervision of, high-risk- Primary Unspecified high-risk documented in this encounter Administered Medications Inactive Administered Medications - up to 3 most recent administrations Medication Order MAR Action Action Date Dose Rate Site docusate sodium (COLACE) capsule 100 mg 100 mg, Oral, 2 TIMES DAILY, First dose on 03/11/13 at 0000, Until Discontinued, Routine Given 03/12/2013 9:00 AM EDT 100 mg Given 03/11/2013 8:49 PM EDT 100 mg Given 03/11/2013 2:32 PM EDT 100 mg ibuprofen (ADVIL;MOTRIN) tablet 600 mg 600 mg, Oral, EVERY 6 HOURS PRN, Starting on Wed03/10/13 at 2344, Until 03/12/13 at 1516, Pain, mild to moderate pain, Do not give if receiving ketorolac. Maximum dose of 3,200 mg from all sources in 24 hours., Routine Given 03/12/2013 8:35 AM EDT 600 mg Given 03/11/2013 9:30 PM EDT 600 mg Given 03/11/2013 3:12 PM EDT 600 mg documented in this encounter Active and Recently Administered Medications Times are shown in EDT. Scheduled Medication Order 03/10/2013 03/11/2013 03/12/2013 docusate sodium (COLACE) capsule 100 mg 100 mg, Oral, 2 TIMES DAILY, First dose on 03/11/13 at 0000, Until Discontinued, Routine 0000 (Due)1432 (Given - Provider: Amara Robles RN)2049 (Given - Provider: Bernice Henderson, SAKSHI) 0900 (Given - Provider: Amara Robles, SAKSHI) PRN Medication Order 03/10/2013 03/11/2013 03/12/2013 ibuprofen (ADVIL;MOTRIN) tablet 600 mg(Linked Group 1) 600 mg, Oral, EVERY 6 HOURS PRN, Starting on Wed03/10/13 at 2344, Until 03/12/13 at 1516, Pain, mild to moderate pain, Do not give if receiving ketorolac. Maximum dose of 3,200 mg from all sources in 24 hours., Routine 0450 (Given - Provider: Maura Hayes RN)1512 (Given - Provider: Amara Robles RN)2130 (Given - Provider: Bernice Henderson, RN) 0835 (Given - Provider: Amara Robles, SAKSHI) Linked Groups Order Group 1: ibuprofen (ADVIL;MOTRIN) tablet 600 mgJump to med 600 mg, Oral, EVERY 6 HOURS PRN, Starting on Wed03/10/13 at 2344, Until 03/12/13 at 1516, Pain, mild to moderate pain, Do not give if receiving ketorolac. Maximum dose of 3,200 mg from all sources in 24 hours., Routine Or ibuprofen (ADVIL;MOTRIN) tablet 800 mg (CANCELED) 800 mg, Oral, EVERY 8 HOURS PRN, Starting on 03/10/13 at 2344, Until 03/12/13 at 1516, Pain, severe pain, Do not give if receiving ketorolac. Maximum dose of 3,200 mg from all sources in 24 hours., Routine documented in this encounter Care Teams Saturator Operator Relationship Specialty Start Date End Date None None PCP - General 08/18/12 09/09/21 documented as of this encounter
--- OUTSIDE RECORDS SUMMARY | 2024-03-02 14:29 | XMS_ITS | Encounter Summary ---
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
--- OUTSIDE RECORDS SUMMARY | 2024-03-02 14:29 | XMS_ITS | Encounter Summary ---
Author Organization [facility] Address [facility] [place] [address] Care Team Providers Care Water Rights Specialist Name Role Phone None Primary Care Provider Unavailabl e Encounter Details Date Type Department Care Team (Late st Contact Info) Description 12/31/2012 Telephone Obstetric[place] [address] Dana Snell MD [facility] DR OBSTETRICS & [place] [address] Social History Tobacco Use Types Packs/Day Years [...] encounter Miscellaneous Notes * Telephone Encounter - Dana Snell MD - 12/31/2012 3:58 PM EDT Returned call to patient. Patient reports that she was seen this last week but did not receive her rhogam shot. Will have nurses call her on Wednesday to schedule a time for her to come in next week. documented in this encounter Plan of Treatment Not on file documented as of this encounter Visit Diagnoses Not on filedocumented in this encounter Care Teams Water Rights Specialist Relationship Specialty Start Date End Date None None PCP - General 08/18/12 09/09/21 documented as of this encounter
--- OUTSIDE RECORDS SUMMARY | 2024-03-02 14:29 | XMS_ITS | Encounter Summary ---
[place] [address] Care Team Providers Care Metal Organ Pipe Maker Name Role Phone Arcelia Brice AUTOMATIC LATHE SETTER Primary Care Provider [phone] Encounter Details Date Type Department Care Team (Latest Contact Info) Description 10/24/2021 Travel Social History Tobacco Use Types Packs/Day Years [...] on filedocumented in this encounter Care Teams Metal Organ Pipe Maker Relationship Specialty Start Date End Date Arcleia Brice APRN [address] [place] [address] PCP - General Family Medicine 09/10/21 documented as of this encounter
--- OUTSIDE RECORDS SUMMARY | 2024-03-02 14:30 | XMS_ITS | Encounter Summary ---
Author Organization [facility] Address [address] [place] [address] Care Team Providers Care Antichecking Iron Worker Name Role Phone Unknown, Provider Primary Care Provider Encounter Details Date Type Department Care Team (Late st Contact Info) Description 12/27/2008 Orders Only [facility] Laboratory Services - [facility] ([facility]) [address] [place], [place] [phone] Marisol Heath, [facility] [address] [place] [address] [place] [address] Social History Tobacco Use Types Packs/Day Years Used Date Smoking Tobacco: Never Assessed Sex and Gender Information Value Date Recorded Sex Assigned at Not on file Gender Identity Not on file Sexual Orientation Not on file documented as of this encounter Plan of Treatment Not on file documented as of this encounter Procedures Procedure Name Priority Date/Time Associated Diagnosis Comments CYTOPATHOLOGY Routine 12/27/2008 0:00 EDT documented in this encounter Results * CYTOPATHOLOGY (12/27/2008 0:00 EDT) Pathology Report: CYTOPATHOLOGY REPORT ? Reports generated via electronic interface contain original data; ? however they are lacking the format of the original report. ? Caution should be taken when reading/interpreti ng unformatted reports. ? Name: ? NORM QUEVEDO ? Accession #: ? [id number] ? : ? 1975 (Age: 33) ??F ?Collect Date: ? 12/27/2008 ? Location: ? [facility] ? Receive Date: ? 12/27/2008 ? Provider: ?MARISOL BRUNO MOLDER APPRENTICE ? Copy to: ? Specimen/Source: ?Pap Test, Cervix/Endocervix, ThinPrep Imaging System ? with manual evaluation ? Last Menstrual Period: ? 05/02/09 ? Other: ? HPVA - HPV testing requested if ASC-US on the current ThinPrep Pap test. ? SPECIMEN ADEQUACY ? Satisfactory for Evaluation ? - transformation zone component present ? GENERAL CATEGORIZATION ? Negative for Intraepithelial Lesion or Malignancy ? Document reviewed and electronically signed by: ? Ling Canaslogg, [place](ASCP) ? Report Date: ??01/01/2009 08:17 ? End of Report ? KATH EPPS 12/27/2008 12/27/2008 Marisol Heath MOLDER APPRENTICE PATHOLOGY ORDERABLES Performing Organization Address City/State/[facility] Co de Phone Number KATH EPPS [address] [place] [address] documented in this encounter Visit Diagnoses Not on filedocumented in this encounter Care Teams Antichecking Iron Worker Relationship Specialty Start Date End Date Unknown, Provider, PCP - General 12/27/08 documented as of this encounter
--- OUTSIDE RECORDS SUMMARY | 2024-03-02 14:30 | XMS_ITS | Encounter Summary ---
Author Organization [facility] Address [address] [place] [address] Care Team Providers Care Dental Chairside Assistant Name Role Phone Unknown, Provider Primary Care Provider [phone] Encounter Details Date Type Department Care Team (Late st Contact Info) Description 08/23/2021 Lab Requisition [facility] Pathology & Laboratory Medicine - [facility] [address] [place] [address] Outr Resulting Lab, Provider Social History Tobacco Use Types Packs/Day Years Used Date Smoking Tobacco: Never Assessed Sex and Gender Information Value Date Recorded Sex Assigned at Not on file Gender Identity Not on file Sexual Orientation Not on file documented as of this encounter Plan of Treatment Not on file documented as of this encounter Procedures Procedure Name Priority Date/Time Associated Diagnosis Comments T3, TOTAL Routine 08/22/2021 9:55 EST documented in this encounter Results * T3, TOTAL (08/22/2021 9:55 EST) T3, Total 102 97 - 169 ng/dL 08/24/2021 17:12 EST [facility] Blood VENOUS BLOOD / Unknown 08/22/2021 9:55 EST 08/24/2021 16:19 EST Provider Outr Resulting Lab CHEMISTRY & BLOOD GAS ORDERABLES [facility] [address] [place] [address] documented in this encounter Visit Diagnoses Not on filedocumented in this encounter Care Teams Dental Chairside Assistant Relationship Specialty Start Date End Date Unknown, ProviderMD PCP - General 12/27/08 documented as of this encounter
--- OUTSIDE RECORDS SUMMARY | 2024-03-02 14:30 | XMS_ITS | Clinical Summary ---
Author Organization [facility] Address [address] [place] [address] Care Team Providers Care Chief Scientist Name Role Phone Unknown, Provider Primary Care Provider Encounters Date Type Department Care Team Description 02/04/2024 Lab Requisition [facility] Pathology & Laboratory Medicine - [facility] [address] [place] [address] Sloane Mendoza FNP Encounter for screening for malignant neoplasm of cervix; Encounter for gynecological examination (general) (routine) without abnormal findings from Last 3 Months Social History Tobacco Use Types Packs/Day Years Used Date Smoking Tobacco: Never Assessed Sex and Gender Information Value Date Recorded Sex Assigned at Not on file Gender Identity Not on file Sexual Orientation Not on file Plan of Treatment Health Maintenance Due Date Last Done Comments Hepatitis C Screen 1975 Hepatitis B Vaccine (1 of 3 - 19+ 3-dose series) 06/01 COVID-19 Vaccine (2022- season) 2023 Procedures Procedure Name Priority Date/Time Associated Diagnosis Comments PAP TEST Today 02/03/2024 14:30 EDT Encounter for screening for malignant neoplasm of cervix Encounter for gynecological examination (general) (routine) without abnormal findings HPV DNA DETECTION WITH GENOTYPING, PCR Today 02/03/2024 14:30 EDT Encounter for screening for malignant neoplasm of cervix Encounter for gynecological examination (general) (routine) without abnormal findings from Last 3 Months Results * PAP TEST (02/03/2024 14:30 EDT) Specimens A. Cervix and/or Endocervix , ThinPrep Imaging System with Manual Evaluation 02/10/2024 14:26 EDT [facility] Specimen Adequacy Satisfactory for Evaluation - transformation zone component present 02/10/2024 14:26 EDT [facility] General Categorization Negative for intraepithelial lesion or malignancy 02/10/2024 14:26 [facility] Attestation . 02/10/2024 14:26 [facility] at 1426 Clinical History See below 02/10/20 14:26 EDT [facility] HPV Human Papillomavirus (HPV) Detection-High Risk Types Negative The following Other High Risk HPV types were not detected: 31,33, 35, 39, 45, 51, 52, 56, 58, 59, 66 and 68. HPV High Risk type 16, PCR Negative HPV High Risk type 18, PCR Negative 02/10/2024 14:26 EDT [facility] Performing Lab [facility] 02/10/2024 14:26 [facility] Scanned Images 02/10/2024 14:26 T [facility] Pap Test CERVIX UTERI STRUCTURE / Unknown 02/03/2024 14:30 EDT 02/04/2024 9:13 EDT Sloane Mendoza TRIMMER MACHINE PATHOLOGY ORDERABLES [facility] [address] [place] [phone] * HPV DNA DETECTION WITH GENOTYPING, PCR (02/03/2024 14:30 EDT) HPV other High Risk types, PCR Negative Negative 02/10/2024 14:26 EDT [facility] Comment: The following Other High Risk HPV types were not detected: ??31,33, 35, 39, 45, 51, 52, 56, 58, 59, 66 and 68. HPV High Risk type 16, PCR Negative Negative 02/10/2024 14:26 EDT [facility] HPV High Risk type 18, PCR Negative Negative 02/10/2024 14:26 EDT [facility] Pap Test CERVIX UTERI STRUCTURE / Unknown 02/03/2024 14:30 EDT 02/09/2024 11:34 EDT Sloane Mendoza TRIMMER MACHINE MICROBIOLOGY - GENER AL ORDERABLES [facility] [address] [place] [address] from Last 3 Months Care Teams Chief Scientist Relationship Specialty Start Date End Date Unknown, Provider, PCP - General 12/27/08
--- OUTSIDE RECORDS SUMMARY | 2024-03-02 14:30 | XMS_ITS | Encounter Summary ---
Author Organization [facility] Address [address] [place] [address] Care Team Providers Care Asl Interpreter Name Role Phone Unknown, Provider Primary Care Provider Encounter Details Date Type Department Care Team (Late st Contact Info) Description 09/19/2018 Results Only [facility] [phone] Dewey Brice, EL[address] [place] [address] Social History Tobacco Use Types Packs/Day Years Used Date Smoking Tobacco: Never Assessed Sex and Gender Information Value Date Recorded Sex Assigned at Not on file Gender Identity Not on file Sexual Orientation Not on file documented as of this encounter Plan of Treatment Not on file documented as of this encounter Procedures Procedure Name Priority Date/Time Associated Diagnosis Comments PAP TEST- RESULT ONLY Routine 09/19/2018 0:00 EST documented in this encounter Results * PAP TEST- RESULT ONLY (09/19/2018 0:00 EST) Pathology Report: CYTOPATHOLOGY REPORT Reports generated via electronic interface contain original data; however they are lacking the format of the original report. Caution should be taken when reading/interpreti ng unformatted reports. Name: ? NORM QUEVEDO ? Accession #: ? [id number] ? : ? 1975 (Age: 43) ??F ?Collect Date: ? 09/19/2018 ? Location: ? [facility] ? Receive Date: ? 09/20/2018 ? Provider: DEWEY OLIVARES Copy to: GERMANI ANGEL MD ? Final Report SPECIMEN ADEQUACY ? Satisfactory for Evaluation - transformation zone component present - scant squamous epithelial component secondary to excessive mucus GENERAL CATEGORIZATION ? Negative for Intraepithelial Lesion or Malignancy ?? Hormonal/Contracep tive status: None Other: Additional clinical information: Z00.00 Z12.4 Z11.51 Specimen/Source: ??Pap Test, Cervix, ThinPrep Imaging System with manual evaluation Document reviewed and electronically signed by: ? Emory Kaiser, CT(ASCP) ? Report ??Date: 09/26/2018 12:37 HPV with Pap Test ? Date Ordered: ? 09/26/2018 ? Status: ?? Signed Out ?Date Complete: ? 09/27/2018 ? By: ??System Interface ? Date Reported: ? 09/27/2018 ? Interpretation RESULT: Negative for HPV. No E6 or E7 mRNA is detected from HPV types 16,18,31,33,35, 39,45,51,52,56,58, 59,66, and 68 by news correspondent mediated amplification. Comments Document reviewed and electronically signed by: ? System Interface ? Report date: 09/27/2018 By the signature above, the attending physician certifies that he/she has personally conducted a gross and/or microscopic examination of the described specimens and rendered or confirmed the above diagnosis. End of Report [facility] 09/19/2018 09/20/2018 Dewey Polishuk SECONDS INSPECTOR PATHOLOGY ORDERABLES [facility] [address] [place] [address] documented in this encounter Visit Diagnoses Not on filedocumented in this encounter Care Teams Asl Interpreter Relationship Specialty Start Date End Date Unknown, Provider, PCP - General 12/27/08 documented as of this encounter
--- OUTSIDE RECORDS SUMMARY | 2024-03-02 14:30 | XMS_ITS | Referral Summary ---
Author Organization [facility] Address [address] [place] [address] Care Team Providers Care Mail Handler Sorter Name Role Phone Unknown, Provider Primary Care Provider Encounters Date Type Department Care Team Description 02/04/2024 Lab Requisition [facility] Pathology & Laboratory Medicine - [facility] [address] [place] [address] Sloane Mendoza FNP Encounter for screening for malignant neoplasm of cervix; Encounter for gynecological examination (general) (routine) without abnormal findings from Last 3 Months Social History Tobacco Use Types Packs/Day Years Used Date Smoking Tobacco: Never Assessed Sex and Gender Information Value Date Recorded Sex Assigned at Not on file Gender Identity Not on file Sexual Orientation Not on file Plan of Treatment Not on file Procedures Procedure Name Priority Date/Time Associated Diagnosis [...] Imaging System with Manual Evaluation 02/10/2024 14:26 T [facility] Specimen Adequacy Satisfactory for Evaluation - transformation zone component present 02/10/2024 14:26 T [facility] General Categorization Negative for intraepithelial lesion or malignancy 02/10/2024 14:26 [facility] Attestation . 02/10/2024 14:26 T [facility] at 1426 Clinical History See below 02/10/20 14:26 T [facility] HPV Human Papillomavirus (HPV) Detection-High Risk Types Negative The following Other High Risk HPV types were not detected: 31,33, 35, 39, 45, 51, 52, 56, 58, 59, 66 and 68. HPV High Risk type 16, PCR Negative HPV High Risk type 18, PCR Negative 02/10/2024 14:26 EDT [facility] Performing Lab [facility] 02/10/2024 14:26 T [facility] Scanned Images 02/10/2024 14:26 EDT [facility] Pap Test CERVIX UTERI STRUCTURE / Unknown 02/03/2024 14:30 EDT 02/04/2024 9:13 EDT Sloane OLIVARES PATHOLOGY ORDERABLES [facility] [address] [place] [id number] * HPV DNA DETECTION WITH GENOTYPING, PCR (02/03/2024 14:30 EDT) HPV other High Risk types, PCR Negative Negative 02/10/2024 14:26 EDT [facility] Comment: The following Other High Risk HPV types were not detected: ??31,33, 35, 39, 45, 51, 52, 56, 58, 59, 66 and 68. HPV High Risk type 16, PCR Negative Negative 02/10/2024 14:26 EDT [facility] HPV High Risk type 18, PCR Negative Negative 02/10/2024 14:26 EDT [facility] Pap Test CERVIX UTERI STRUCTURE / Unknown 02/03/2024 14:30 EDT 02/09/2024 11:34 EDT Sloane Alice Reji SEISMOLOGY TEACHER MICROBIOLOGY - GENER AL ORDERABLES [facility] [address] [place] [address] from Last 3 Months Care Teams Mail Handler Sorter Relationship Specialty Start Date End Date Unknown, Provider, PCP - General 12/27/08
--- OUTSIDE RECORDS SUMMARY | 2024-03-02 14:30 | XMS_ITS | Encounter Summary ---
Author Organization [facility] Address [address] [place] [address] Care Team Providers Care Charge Account Authorizer Name Role Phone Unknown, Provider Primary Care Provider Encounter Details Date Type Department Care Team (Late st Contact Info) Description 08/11/2012 Results Only [facility] [phone] Kasandra Moore, [facility] [address] [place] [address] Social History Tobacco Use Types Packs/Day Years [...] Diagnosis Comments PAP TEST- RESULT ONLY Routine 08/11/2012 0:00 EST documented in this encounter Results * PAP TEST- RESULT ONLY (08/11/2012 0:00 EST) Pathology Report: CYTOPATHOLOGY REPORT Reports generated via electronic interface contain original data; however they are lacking the format of the original report. Caution should be taken when reading/interpreti ng unformatted reports. Name: ? NORM QUEVEDO ? Accession #: ? [id number] : ? 1975 (Age: 37) ??F ?Collect Date: ? 08/11/2012 Location: ? [facility] ? Receive Date: ? 08/15/2012 Provider: ?KASANDRA MOORE CNM Copy to: ? Specimen/Source: ?Pap Test, Cervix/Endocervix, ThinPrep Imaging System with manual evaluation Last Menstrual Period: ? 07/12/12 Menstrual/Pregnanc y Status: ? SPECIMEN ADEQUACY ? Satisfactory for Evaluation - transformation zone component present GENERAL CATEGORIZATION ? Negative for Intraepithelial Lesion or Malignancy ? Document reviewed and electronically signed by: ? SEGUNDO Pham(ASCP) ? Report Date: ??08/18/2012 11:06 End of Report KATH EPPS 08/11/2012 08/15/2012 Kasandra Moore CNM PATHOLOGY ORDERAB LES [facility] [address] [place] [address] documented in this encounter Visit Diagnoses Not on filedocumented in this encounter Care Teams Charge Account Authorizer Relationship Specialty Start Date End Date Unknown, Provider, PCP - General 12/27/08 documented as of this encounter
--- OUTSIDE RECORDS SUMMARY | 2024-03-02 14:30 | XMS_ITS | Encounter Summary ---
Author Organization [facility] Address [address] [place] [address] Care Team Providers Care Disk And Tape Machine Tender Name Role Phone Unknown, Provider Primary Care Provider [phone] Encounter Details Date Type Department Care Team (Latest Contact Info) Description 02/04/2024 Lab Requisition [facility] Pathology & Laboratory Medicine - [facility] [address] [place] [address] Sloane Mendoza, ELISE [address] [facility] [address] [place] [address] Encounter for screening for malignant neoplasm of cervix; Encounter for gynecological examination (general) (routine) without abnormal findings Social History Tobacco Use Types Packs/Day Years [...] gynecological examination (general) (routine) without abnormal findings documented in this encounter Results * HPV DNA DETECTION WITH GENOTYPING, PCR (02/03/2024 14:30 EDT) HPV other High Risk types, PCR Negative Negative 02/10/2024 14:26 EDT [facility] Comment: The following Other High Risk HPV types were not detected: ??31,33, 35, 39, 45, 51, 52, 56, 58, 59, 66 and 68. HPV High Risk type 16, PCR Negative Negative 02/10/2024 14:26 [facility] HPV High Risk type 18, PCR Negative Negative 02/10/2024 14:26 [facility] Pap Test CERVIX UTERI STRUCTURE / Unknown 02/03/2024 14:30 EDT 02/09/2024 11:34 EDT Sloane Mendoza HEALTH INFORMATION TECHNICIAN MICROBIOLOGY - GENER AL ORDERABLES [facility] [address] [place] [phone] * PAP TEST (02/03/2024 14:30 EDT) Specimens A. Cervix and/or Endocervix , ThinPrep Imaging System with Manual Evaluation 02/10/2024 14:26 [facility] Specimen Adequacy Satisfactory for Evaluation - transformation zone component present 02/10/2024 14:26 [facility] General Categorization Negative for intraepithelial lesion or malignancy 02/10/2024 14:26 [facility] Attestation . 02/10/2024 14:26 [facility] at 1426 Clinical History See below 02/10/20 14:26 [facility] HPV Human Papillomavirus (HPV) Detection-High Risk Types Negative The following Other High Risk HPV types were not detected: 31,33, 35, 39, 45, 51, 52, 56, 58, 59, 66 and 68. HPV High Risk type 16, PCR Negative HPV High Risk type 18, PCR Negative 02/10/2024 14:26 [facility] Performing Lab [facility] 02/10/2024 14:26 [facility] Scanned Images 02/10/2024 14:26 [facility] Pap Test CERVIX UTERI STRUCTURE / Unknown 02/03/2024 14:30 EDT 02/04/2024 9:13 EDT Sloane Mendoza HEALTH INFORMATION TECHNICIAN PATHOLOGY ORDERABLES [facility] [address] [place] [phone] documented in this encounter Visit Diagnoses Diagnosis Encounter for screening for malignant neoplasm of cervix Screening for malignant neoplasm of the cervix Encounter for gynecological examination (general) (routine) without abnormal findings documented in this encounter Care Teams Disk And Tape Machine Tender Relationship Specialty Start Date End Date Unknown, Provider, PCP - General 12/27/08 documented as of this encounter
== END 2024-03-02 14:24 | disposition home or self-care (01) ==
LOC: NCHCN 14:23
PROVIDERS: PCP Nurse Practitioner Family; Visit Provider Nurse Practitioner Family
DX: D22.62 Melanocytic nevi of left upper limb, including shoulder (principal)
CPT/HCPCS: 88305

== ENCOUNTER 2024-06-02 00:24 | Outpatient (CLI) | payer BC, SELFPAY ==
--- NOTE | 2024-06-02 | DI.MAMMO_ITS ---
Exam(s) MAMMO SCREENING EXAM: MAMMO SCREENING CLINICAL HISTORY: SCREENING MAMMO Z12.39. TECHNIQUE: Bilateral full field digital CC and MLO mammographic images were obtained with 3D tomosyn thesis and utilizing computer aided detection (CAD). COMPARISON: None. This is a baseline mammogram on this 49-year-old. FINDINGS: The fibroglandular tissue pattern is moderately dense. There are no spiculated masses nor malignant appearing microcalcification groups. Scattered punctate benign-appearing microcalcifications are noted in both breasts, more numerous on t he left side. There is no significant architectural distortion nor skin thickening-retraction. IMPRESSION: Non findings. No radiographic evidence of malignancy. BI-RADS Category 2 - Benign Findings Breast Density - Category C - Heterogeneously dense Breast density Category C or D implies that the patient has dense breast tissue. Dense breast tissue can make it harder to find cancer on a mammogram. Dense breast tissue is also associated with an incr eased risk of breast cancer. This information about the result of the mammogram report was provided to the patient to raise their awareness. Use this report when you speak with the patient about their risks for breast cancer, which includes their family history. At that time, you may recommend additional screening tests (Ultrasoun d or MRI) as these tests may add significant information. A negative radiographic report should not delay biopsy if a dominant or clinically suspicious mass is present. Up to ten percent of cancers are not identified on mammography. A negative report may reinforce clinical impression. Adenosis and dense breasts may obscure an underlying neoplasm. False positive reports average 6 to 10%. Patient will receive a letter notifying them of these results.
--- OUTSIDE RECORDS SUMMARY | 2024-06-02 00:26 | XMS_ITS | Encounter Summary ---
Author Organization [facility] Address [facility] [place] [address] Care Team Providers Care Consumer Safety Officer Name Role Phone None Primary Care Provider Unavailabl e Reason for Visit * Reason Comments Routine Visit Encounter Details Date Type Department Care Team (Latest Contact Info) Description 03/06/2013 3:00 PM EDT Routine Obstetrics [place] [address] Bernice Corona MD [facility] DR OBSTETRICS [place] [address] GA: 38w2d Discharge Disposition: Home Social History [...] storm documented in this encounter Care Teams Consumer Safety Officer Relationship Specialty Start Date End Date None None PCP - General 08/18/12 09/09/21 documented as of this encounter
--- OUTSIDE RECORDS SUMMARY | 2024-06-02 00:26 | XMS_ITS | Encounter Summary ---
Author Organization [facility] Address [facility] [place] [address] Care Team Providers Care Tax Collector Name Role Phone None Primary Care Provider Unavailabl e Encounter Details Date Type Department Care Team (Late st Contact Info) Description 12/31/2012 Telephone Obstetrics [place] [address] Dana Snell MD [facility] DR OBSTETRICS & [place] [address] Social History Tobacco Use Types Packs/Day Years [...] on filedocumented in this encounter Care Teams Tax Collector Relationship Specialty Start Date End Date None None PCP - General 08/18/12 09/09/21 documented as of this encounter
--- OUTSIDE RECORDS SUMMARY | 2024-06-02 00:26 | XMS_ITS | Encounter Summary ---
Author Organization [facility] Address [address] [place] [address] Care Team Providers Care Lumber Handler Name Role Phone Unknown, Provider Primary Care Provider Encounter Details Date Type Department Care Team (Late st Contact Info) Description 12/27/2008 Orders Only [facility] Laboratory Services - [facility] ([facility] [address] [place], [place] [address] Marisol Heath, [facility] [address] [place] [address] [place] [address] Social History Tobacco Use Types [...] ? NORM QUEVEDO ? Accession #: ? [id number] ? : ? 1975 (Age: 33) ??F ?Collect Date: ? 12/27/2008 ? Location: ? [facility] ? Receive Date: ? 12/27/2008 ? Provider: ?MARISOL BRUNO AUDITOR/QUALITY ? Copy to: ? Specimen/Source: ?Pap Test, [...] reviewed and electronically signed by: ? Ling Huntg, CT(ASCP) ? Report Date: ??01/01/2009 08:17 ? End of Report ? [facility] 12/27/2008 12/27/2008 Marisol Heath AUDITOR/QUALITY PATHOLOGY ORDERABLES [facility] [address] [place] [address] documented in this encounter Visit Diagnoses Not on filedocumented in this encounter Care Teams Lumber Handler Relationship Specialty Start Date End Date Unknown, Provider, PCP - General 12/27/08 documented as of this encounter
--- OUTSIDE RECORDS SUMMARY | 2024-06-02 00:26 | XMS_ITS | Encounter Summary ---
Author Organization [facility] Address [address] [place] [address] Care Team Providers Care Floor Technician Name Role Phone Unknown, Provider Primary Care Provider [phone] Encounter Details Date Type Department Care Team (Late st Contact Info) Description 09/19/2018 Results Only [facility] [phone] Dewey Brice, ELISE [address] [place] [address] Social History Tobacco Use Types Packs/Day Years [...] ? NORM QUEVEDO ? Accession #: ? [id number] ? : ? 1975 (Age: 43) ??F ?Collect Date: ? 09/19/2018 ? Location: ? [facility] ? Receive Date: ? 09/20/2018 ? Provider: DEWEY BRICE [facility]OMEN Copy to: GERMAIN ANGEL MD ? Final Report SPECIMEN ADEQUACY [...] and electronically signed by: ? Emory Kaiser, SEGUNDO(ASCP) ? Report ??Date: 09/26/2018 12:37 HPV with Pap Test ? Date Ordered: ? 09/26/2018 ? Status: ?? Signed Out ?Date Complete: ? 09/27/2018 ? By: ??System Interface ? Date Reported: ? 09/27/2018 ? Interpretation RESULT: Negative for HPV. No E6 or E7 mRNA is detected from HPV types 16,18,31,33,35, 39,45,51,52,56,58, 59,66, and 68 by shingle catcher mediated amplification. Comments Document reviewed and electronically signed by: ? System Interface ? Report date: 09/27/2018 By the signature above, the attending physician certifies that he/she has personally conducted a gross and/or microscopic examination of the described specimens and rendered or confirmed the above diagnosis. End of Report [facility] 09/19/2018 09/20/2018 Dewey Gonsalez DEAN OF WOMEN PATHOLOGY ORDERABLES [facility] [address] [place], [place] [id number] documented in this encounter Visit Diagnoses Not on filedocumented in this encounter Care Teams Floor Technician Relationship Specialty Start Date End Date Unknown, Provider, PCP - General 12/27/08 documented as of this encounter
--- OUTSIDE RECORDS SUMMARY | 2024-06-02 00:26 | XMS_ITS | Encounter Summary ---
Author Organization [facility] Address [address] [place] [address] Care Team Providers Care Program Lead Name Role Phone Unknown, Provider Primary Care Provider Encounter Details Date Type Department Care Team (Late st Contact Info) Description 08/11/2012 Results Only [facility]- [facility] [phone] Kasandra Moore, [facility] [address] [place] [address] Social History Tobacco Use Types Packs/Day Years [...] ? NORM QUEVEDO ? Accession #: ? [id number] : ? 1975 (Age: 37) ??F ?Collect [...] by: ? Emory Kaiser, CT(ASCP) ? Report Date: ??08/18/2012 11:06 End of Report [facility] 08/11/2012 08/15/2012 Kasandra Moore CNM PATHOLOGY ORDERAB LES [facility] [address] [place] [address] documented in this encounter Visit Diagnoses Not on filedocumented in this encounter Care Teams Program Lead Relationship Specialty Start Date End Date Unknown, Provider, PCP - General 12/27/08 documented as of this encounter
--- OUTSIDE RECORDS SUMMARY | 2024-06-02 00:26 | XMS_ITS | Referral Summary ---
Author Organization [facility] Address [address] [place] [address] Care Team Providers Care Business Systems Consultant Name Role Phone Unknown, Provider Primary Care Provider Encounters Date Type Department Care Team Description 03/03/2024 Lab Requisition [facility] Pathology & Laboratory Medicine - [address] [address] Sloane Mendoza, ICE CREAM MAN Melanocytic nevi, unspecified from Last 3 Months Social History Tobacco Use Types Packs/Day Years Used Date Smoking Tobacco: Never Assessed Sex and Gender Information Value Date Recorded Sex Assigned at Not on file Gender Identity Not on file Sexual Orientation Not on file Plan of Treatment Not on file Procedures Procedure Name Priority Date/Time Associated Diagnosis Comments SURGICAL PATHOLOGY Today 03/02/2024 12 :10 EDT Melanocytic nevi, unspecified from Last 3 Months Results * SURGICAL PATHOLOGY (03/02/2024 12:10 EDT) Note to Patient The following pathology results have been interpreted by your pathologist and may be available to you before your health provider has had the opportunity to review them. Please allow time for your provider to receive these results and explore management options, if applicable. 03/06/2024 10:21 EDT [facility] Final Diagnosis A. SKIN OF SHOULDER, LEFT POSTERIOR, SHAVE BIOPSY: - Melanocytic nevus, compound type, with unusual architectural features and mild cytologic atypia, irritated, encompassed within the examined sections. B. SKIN OF SIKH/FACE, LEFT, SHAVE BIOPSY: - Seborrheic keratosis, pigmented. [facility] Attestation By the signature below, the attending physician certifies that they have 1) personally conducted a gross and/or microscopic examination of the described specimen(s), and/or personally interpreted the results of laboratory testing of the described specimen(s), and 2) personally rendered or confirmed the above diagnosis. 03/06/2024 10:21 [facility] at 1021 Clinical History Atypical melanocytic nevi; clinical diagnosis code: D22.9 03/06/2024 10:21 T [facility] Gross Description A. Received in formalin labelled with proper patient identification (initials M, C) and L posterior shoulder is an elongated dull deal skin shave, 0.6 x 0.2 x 0.1 cm. The margin is inked. Entirely submitted intact in A1. B. Received in formalin labelled with proper patient identification (initials M, C) and L alevism/face is an irregular dull deal skin shave, 0.5 x 0.3 x 0.1 cm. The skin surface shows an eccentrically located 0.3 cm brown-black macule. The margin is inked. Entirely submitted intact in B1. LISA MCGEE(ASCP) 03/03/2024 13:41 03/06/2024 10:21 T [facility] Performing Lab [facility] 03/06/2024 10:21 [facility] Scanned Images 03/06/2024 10:21 T [facility] Tissue SPECIMEN FROM SKIN / Unknown 03/02/2024 12:10 EDT 03/03/2024 11:47 EDT Tissue specimen (specimen) SPECIMEN FROM SKIN / Unknown 03/02/2024 12:10 EDT 03/03/2024 11:47 EDT Sloane Mendoza ICE CREAM MAN PATHOLOGY ORDERABLES [facility] [address] [place], [place] [phone] from Last 3 Months Belkis Wilson Personal/Family Self 1975 [address] [facility] [place], [place] [address] Belkis Wilson Personal/Family Self 1975 [address] [facility] [place] [address] Belkis Wilson Personal/Family Self 1975 [address] [facility] [place] [address] Belkis Wilson Personal/Family Self 1975 [address] [facility] [place] [place] [address] Belkis Wilson Personal/Family Self 1975 [address] [facility] [place] [address] Belkis Wilson Personal/Family Self 1975 [address] [facility] [place] [address] Belkis Wilson Personal/Family Self 1975 [address] [facility] [place] [address] Care Teams Business Systems Consultant Relationship Specialty Start Date End Date Unknown, Provider, PCP - General 12/27/08
--- OUTSIDE RECORDS SUMMARY | 2024-06-02 00:26 | XMS_ITS | Encounter Summary ---
Author Organization [facility] Address [facility] [place] [address] Care Team Providers Care Teller Name Role Phone None Primary Care Provider Unavailabl e Reason for Visit * Reason Comments Routine Visit Encounter Details Date Type Department Care Team (Latest Contact Info) Description 01/31/2013 2:00 PM EDT Routine Obstetrics [place] [address] Gamaliel Lopez MD [facility] DR OBSTETRICS & [place] [address] GA: [id number] Discharge Disposition: Home Social History [...] chemistry documented in this encounter Care Teams Teller Relationship Specialty Start Date End Date None None PCP - General 08/18/12 09/09/21 documented as of this encounter
--- OUTSIDE RECORDS SUMMARY | 2024-06-02 00:26 | XMS_ITS | Clinical Summary ---
Author Organization [facility] Address [facility] [address] [place] [address] Care Team Providers Care Field Hand Name Role Phone Arcelia Brice APRN Primary Care Provider [phone] Allergies No known active allergies Medications Medication Sig Dispensed Refills Start Date End Date Status cholecalciferol, Vitamin D3, 400 unit tablet Take 400 Units by mouth daily. Active Morrison-3 Fatty Acids (FISH OIL) 300 mg Cap [...] (12/06/2012): Team MFM transfer of care from [facility] at 24 weeks Delivery plan GBS date & Result Cystic fibrosis choice Negative from prior Aneuploidy choice declined Others screening tests nutrition Childbirth education preferences Contraception plan condoms Ped/circ plans [facility] Immunizations: Influenza vaccine Accepted Declined Contraindicated x Other vaccines Indicated Not indicated Given during Tdap x Pneumovax MMR Varicella x Other RhD negative 11/30/2012 Overview (01/02/2013): Rhogam Canidiate Will be getting her 28 week Rhogam at [facility] Raynaud disease 11/30/2012 Overview (11/30/2012): Dx [...] Hepatitis B vaccine (0-59 yrs) (1) 1993 Tetanus/Diphtheria/Pertussis Vaccines (1 - Tdap) 06/01 HPV test 2004 PAP Smear 2004 Breast Cancer Share Decision Needed 2014 Breast Cancer screening 2014 Covid-19 Vaccine (1 - 2023-24 season) 2024 Influenza (Flu) vaccine (1 o f 1 - Influenza standard series) 04/16/2024 Advance Directives * Full Code (Latest Code Status on File) Date Activated Date Inactivated Comments 03/10/2013 8:28 PM 03/10/2013 11:45 PM Question Answer Comments Order Status: Initial Order Does patient have decision m aking capacity? Yes, Order is based on Patients wishes. Care Teams Field Hand Relationship Specialty Start Date End Date Arcelia Brice APRN [address] [place] [address] PCP - General Family Medicine 09/10/21
--- OUTSIDE RECORDS SUMMARY | 2024-06-02 00:26 | XMS_ITS | Encounter Summary ---
Author Organization [facility] Address [facility] [place] [address] Care Team Providers Care Power Saw Mechanic Name Role Phone None Primary Care Provider Unavailabl e Encounter Details Date Type Department Care Team (Late Contact Info) Description 10/01/2012 Telephone Obstetrics [place] [address] Heladio Cope MD [facility] OBSTETRICS [place] [address] Social History Tobacco Use Types Packs/Day Years [...] [facility]. [place] providers [place] have not received the recommendations from that consult, and her recent repeat blood work did not include a free T3. She is going to [place] for 1 week. Would like to know if Dr. Duran feels the FT3 is important and should she have her blood drawn again? Also would like report of visit sent to her providers in [place]. HELADIO COPE MD documented in this encounter Plan of Treatment Not on file documented as of this encounter Visit Diagnoses Not on filedocumented in this encounter Care Teams Power Saw Mechanic Relationship Specialty Start Date End Date None None PCP - General 08/18/12 09/09/21 documented as of this encounter
--- OUTSIDE RECORDS SUMMARY | 2024-06-02 00:26 | XMS_ITS | Encounter Summary ---
Author Organization [facility] Address [facility] [place] [address] Care Team Providers Care Parts Analyst Name Role Phone None Primary Care Provider Unavailabl e Encounter Details Date Type Department Care Team (Late st Contact Info) Description 01/16/2013 10:00 AM EDT Office Visit Obstetrics [place] [address] [facility] [address] Excess weight gain in (Primary Dx) Social [...] care documented in this encounter Care Teams Parts Analyst Relationship Specialty Start Date End Date None None PCP - General 08/18/12 09/09/21 documented as of this encounter
--- OUTSIDE RECORDS SUMMARY | 2024-06-02 00:26 | XMS_ITS | Encounter Summary ---
[place] [address] Care Team Providers Care Senior C Developer Name Role Phone Arcelia Brice BEAD FILLER Primary Care Provider [phone] Encounter Details Date Type Department Care Team [...] on filedocumented in this encounter Care Teams Senior C Developer Relationship Specialty Start Date End Date Arcelia Brice APRN [address] [place] [address] PCP - General Family Medicine 09/10/21 documented as of this encounter
--- OUTSIDE RECORDS SUMMARY | 2024-06-02 00:26 | XMS_ITS | Encounter Summary ---
Author Organization [facility] [place] [address] Care Team Providers Care Clerk Guide Name Role Phone None Primary Care Provider Unavailabl e Reason for Referral * Consultation (Routine) - Closed Specialty Diagnoses / Procedures Referred By Contac t Referred To Contact Endocrinology Diagnoses , supervision of, high-risk Elevated TSH AMA (advanced maternal age) multigravida 35+ Apollo Hill MD [facility] [place] [address] [facility] [address] [place] [phone] Referral ID Status Reason Start Date Expiration Date V isits Requested Visits Authorized [id number] Closed Consult, Test & Treat 01/16/2013 07/15/2013 1 1 Reason for Visit * Reason Comments Routine Visit Encounter Details Date Type Department Care Team (Latest Contact Info) Description 01/16/2013 11:15 AM EDT Routine Obstetrics [place] [address] Apollo Hill MD [facility] [place]ST[place] [address] GA: 31w2d Discharge Disposition: Home [...] complication documented in this encounter Care Teams Clerk Guide Relationship Specialty Start Date End Date None None PCP - General 08/18/12 09/09/21 documented as of this encounter
--- OUTSIDE RECORDS SUMMARY | 2024-06-02 00:26 | XMS_ITS | Encounter Summary ---
Author Organization [facility] [place] [place] [address] Care Team Providers Care Salon Manager Name Role Phone Arcelia Brice APRN Primary Care Provider [phone] Encounter Details Date Type Department Care Team (Late st Contact Info) Description 10/24/2021 10:00 AM EST Office [place] [address] Lazarus Jiang MD [facility] [place] [address] Paresthesia Social History Tobacco Use Types Packs/Day [...] - 10/24/2021 10:00 AM [place] [address] 10/24/2021 Patient name: Belkis Wilson Date of : 1975 Referring provider: Arcelia Brice APRN [address] [place] [address] HISTORY REASON FOR REFERRAL/CHIEF 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 ??? [place]lin-3 Fatty Acids (FISH OIL) 300 mg Cap [...] found for: CRP B12No results found for: [id number] CKNo results found for: CK Angiotensin ConvertaseNo [...] LDLCHOL, LDLDIRECT SHANNON 65No results found for: NWZ71CI ANTI GM1,ANTI SGPG, MAG@RESUFAST (MAGAUTOAB,SGPG,MAGWB,GM1AB)@ HEAVY METAL [...] ANNA1, ANNA2, ANNA3, AGNA1, PCA1, PCA2, PCATYPETR, AMPHIPHYSIN,OIAD5FDV, STRIATMSCLAB, CACHABPQTYPE, CACHABNTYPE, ACHRBINDAB, NEUROKCHAB, NMDARECEPTOR, EHG20CE THROMBOSIS HOMEOCYSTEINENo results found for: HOMOCYSTEINE THROMBOSIS PANELNo results found for: ACAIGM, [id number] FACTOR V LEIDEN No components found for: [...] needed. Lazarus Jiang MD Department of Neurology [facility] documented in this encounter Plan of Treatment Not on file documented as of this encounter Visit Diagnoses Diagnosis Paresthesia Disturbance of skin sensation documented in this encounter Care Teams Salon Manager Relationship Specialty Start Date End Date Arcelia Brice, SHIPPING ROOM HELPER [address] [facility] [place] [address] PCP - General Family Medicine 09/10/21 documented as of this encounter
--- OUTSIDE RECORDS SUMMARY | 2024-06-02 00:26 | XMS_ITS | Encounter Summary ---
[place] [address] Care Team Providers Care Slitting Machine Feeder Name Role Phone None Primary Care Provider Unavailabl e Encounter Details Date Type Department Care Team (Late st Contact Info) Description 12/06/2012 External Results Obstetrics [place] [address] Gamaliel Elmore RN , supervision of, high-risk [...] Hematocrit 37.4(Exte rnal Lab) 36.0 - 46.0 Mean Cell Volume 90.3(Exte rnal Lab) 82.0 - 108.0 Platelet 184(Exter nal Lab) Rubella Antibody IgG immune(Ex ternal Lab) Syphilis IgG Negative( External Lab) (none) Hepatitis B Surface Antigen Negative( External Lab) (none) HIV 1/2 Ab Thyroid Stimulating Hormone Hemoglobin A1c Cystic Fibrosis Report prior preg -(Externa l Lab) Protein, 24 Hour Urine Creatinine Clearance, 24 Hour Urine Creatinine Aspartate Aminotransferase 13 - 35 Alanine Aminotransferase 7 - 35 Uric Acid Urine Culture GC Gene Amp negative( External Lab) Chlamydia Gene Amp negative( External Lab) Cytopathology Final Report negative( External Lab) GBS Screen Gluc Baseline Glucose 1 hour Glucose 2 hour Glucose 3 hour Oral Glucose Dose 08/11/2012 Kasandra Abraham CNM POINT OF CARE DELFINO T ORDERABLES documented in this encounter Visit Diagnoses Diagnosis , supervision of, high-risk- Primary Unspecified high-risk documented in this encounter Care Teams Slitting Machine Feeder Relationship Specialty Start Date End Date None None PCP - General 08/18/12 09/09/21 documented as of this encounter
--- OUTSIDE RECORDS SUMMARY | 2024-06-02 00:26 | XMS_ITS | Encounter Summary ---
Author Organization [facility] Address [facility] [place] [address] Care Team Providers Care Metal Bonding Worker Name Role Phone None Primary Care Provider Unavailabl e Reason for Visit * Reason Comments Routine Visit Encounter Details Date Type Department Care Team (Latest Contact Info) Description 02/27/2013 2:30 PM EDT Routine Obstetrics [place] [address] Bernice Corona MD [facility] DR OBSTETRICS [place] [address] GA: 37w2d Discharge Disposition: Home Social History [...] syndrome documented in this encounter Care Teams Metal Bonding Worker Relationship Specialty Start Date End Date None None PCP - General 08/18/12 09/09/21 documented as of this encounter
--- OUTSIDE RECORDS SUMMARY | 2024-06-02 00:26 | XMS_ITS | Encounter Summary ---
Author Organization [facility] Address [facility] [place] [address] Care Team Providers Care Housing Assistant Property Manager Name Role Phone None Primary Care Provider Unavailabl e Reason for Visit * Reason Comments Routine Visit Encounter Details Date Type Department Care Team (Latest Contact Info) Description 12/28/2012 1:00 PM EDT Routine Obstetrics [place] [address] Gamaliel Lopez MD [facility] DR OBSTETRICS [place] [address] GA: [id number] Discharge Disposition: Home Social History [...] - 12/28/2012 1:38 PM EDT Welcome to [employer], your secure online access to your electronic medical record at [facility]. Using [employer] you will be able to send messages to your providers, view your test results, renew prescriptions, schedule appointments, and much more. Follow these instructions to enter your personal [employer] account for the first time: 1. Start your internet browser and type [email or web address] into the address bar. 2. In the New User box on the right-hand side of the Welcome page click the link that states, ???I have an activation code.?? 3. On the Identification page, follow these steps: a) Enter your [employer] activation code: [email or web address] b) Expires: 02/11/2013 1:38 PM IMPORTANT: This Activation Code will on the above mentioned date. If you do not sign up for [employer] by this date, you will need to request another activation code. c) Enter your date of , using the calendar tool provided. d) Enter your Zip code. e) Select ???submit?? to go to the next page. 4. On the Create Account page, follow these steps: a) Create a [employer] username. This can???t be changed, so choose [...] record. If you have any questions about Ellie[facility] or your Access Code, please call for [place], for [place] or for [place]. If you need technical support, please e-mail . Remember, [employer] is NOT for urgent needs! [...] She has a protein yogurt shake in critical access [facility] with lots of fruit, lunch [...] Lopez MD CHEMISTRY ORDERABLES Performing Organization Address [facility] Co de Phone Number RAFITA FERRER * TSH (12/28/2012 2:27 PM EDT) Thyroid Stimulating Hormone 3.50 0.27 - 4.20 mcIU/mL RAFITA DE LA CRUZIUM Blood specimen (specimen) 12/28/2012 2:27 PM EDT 12/28/2012 2:30 PM EDT Narrative Resulting Agency Comment Spec In Lab Gamaliel Lopez MD CHEMISTRY ORDERABLES Performing Organization Address [facility] Co de Phone Number RAFITA FERRER documented in this encounter Visit Diagnoses Diagnosis Elevated TSH- Primary Other abnormal blood chemistry , supervision of, high-risk Unspecified high-risk RhD negative Need for prophylactic immunotherapy documented in this encounter Care Teams Housing Assistant Property Manager Relationship Specialty Start Date End Date None None PCP - General 08/18/12 09/09/21 documented as of this encounter
--- OUTSIDE RECORDS SUMMARY | 2024-06-02 00:26 | XMS_ITS | Encounter Summary ---
Author Organization [facility] Address [address] [place] [address] Care Team Providers Care Pacu Rn Name Role Phone Unknown, Provider Primary Care Provider [phone] Encounter Details Date Type Department Care Team (Latest Contact Info) Description 02/04/2024 Lab Requisition [facility] Pathology & Laboratory Medicine - [facility] [address] [place] [address] Sloane Mendoza FNP [facility] DE [place] [facility] [address] [place] [address] Encounter for screening for malignant [...] Risk types, PCR Negative Negative 02/10/2024 14:26 [facility] Comment: The following Other High Risk HPV types were not detected: ??31,33, 35, 39, 45, 51, 52, 56, 58, 59, 66 and 68. HPV High Risk type 16, PCR Negative Negative 02/10/2024 14:26 [facility] HPV High Risk type 18, PCR Negative Negative 02/10/2024 14:26 [facility] Pap Test CERVIX UTERI STRUCTURE / Unknown 02/03/2024 14:30 EDT 02/09/2024 11:34 EDT Sloane Mendoza PROGRAM MANAGER MICROBIOLOGY - GENER AL ORDERABLES [facility] [address] [place] [address] * PAP TEST (02/03/2024 14:30 EDT) Specimens A. Cervix and/or Endocervix , ThinPrep Imaging System with Manual Evaluation 02/10/2024 14:26 [facility] Specimen Adequacy Satisfactory for Evaluation - transformation zone component present 02/10/2024 14:26 [facility] General Categorization Negative for intraepithelial lesion or malignancy 02/10/2024 14:26 [facility] Attestation . 02/10/2024 14:26 [facility] at 1426 Clinical History See below 02/10/20 14:26 [facility] HPV Human Papillomavirus (HPV) Detection-High Risk Types Negative The following Other High Risk HPV types were not detected: 31,33, 35, 39, 45, 51, 52, 56, 58, 59, 66 and 68. HPV High Risk type 16, PCR Negative HPV High Risk type 18, PCR Negative 02/10/2024 14:26 [facility] Performing Lab [facility] 02/10/2024 14:26 [facility] Scanned Images 02/10/2024 14:26 [facility] Pap Test CERVIX UTERI STRUCTURE / Unknown 02/03/2024 14:30 EDT 02/04/2024 9:13 EDT Sloane Mendoza PROGRAM MANAGER PATHOLOGY ORDERABLES [facility] [address] [place] [address] documented in this encounter Visit Diagnoses Diagnosis Encounter for screening for malignant neoplasm of cervix Screening for malignant neoplasm of the cervix Encounter for gynecological examination (general) (routine) without abnormal findings documented in this encounter Care Teams Pacu Rn Relationship Specialty Start Date End Date Unknown, Provider, PCP - General 12/27/08 documented as of this encounter
--- OUTSIDE RECORDS SUMMARY | 2024-06-02 00:26 | XMS_ITS | Encounter Summary ---
Author Organization [facility] Address [address] [place] [address] Care Team Providers Care Mica Sizer Name Role Phone Unknown, Provider Primary Care Provider [phone] Encounter Details Date Type Department Care Team (Late st Contact Info) Description 03/03/2024 Lab Requisition [facility] Pathology & Laboratory Medicine - [facility] [address] [place] [address] Sloane Mendoza FNP [facility] DE LE[place]N [facility] [address] [place] [address] Melanocytic nevi, unspecified Social History Tobacco Use Types Packs/Day Years [...] 03/02/2024 12 :10 EDT Melanocytic nevi, unspecified documented in this encounter Results * SURGICAL PATHOLOGY (03/02/2024 12:10 EDT) Note to Patient The following pathology results have been interpreted by your pathologist and may be available to you before your health provider has had the opportunity to review them. Please allow time for your provider to receive these results and explore management options, if applicable. 03/06/2024 10:21 EDT [facility] Final Diagnosis A. SKIN OF SHOULDER, LEFT POSTERIOR, SHAVE BIOPSY: - Melanocytic nevus, compound type, with unusual architectural features and mild cytologic atypia, irritated, encompassed within the examined sections. B. SKIN OF ALEVISM/FACE, LEFT, SHAVE BIOPSY: - Seborrheic keratosis, pigmented. 03/06/2024 10:21 [facility] Attestation By the signature below, the attending physician certifies that they have 1) personally conducted a gross and/or microscopic examination of the described specimen(s), and/or personally interpreted the results of laboratory testing of the described specimen(s), and 2) personally rendered or confirmed the above diagnosis. 03/06/2024 10:21 [facility] at 1021 Clinical History Atypical melanocytic nevi; clinical diagnosis code: D22.9 03/06/2024 10:21 [facility] Gross Description A. Received in formalin labelled with proper patient identification (initials M, C) and L posterior shoulder is an elongated dull deal skin shave, 0.6 x 0.2 x 0.1 cm. The margin is inked. Entirely submitted intact in A1. B. Received in formalin labelled with proper patient identification (initials M, C) and L anglican/face is an irregular dull deal skin shave, 0.5 x 0.3 x 0.1 cm. The skin surface shows an eccentrically located 0.3 cm brown-black macule. The margin is inked. Entirely submitted intact in B1. LISA MCGEE(ASCP) 03/03/2024 13:41 03/06/2024 10:21 [facility] Performing Lab [facility] 03/06/2024 10:21 T [facility] Scanned Images 03/06/2024 10:21 [facility] Tissue SPECIMEN FROM SKIN / Unknown 03/02/2024 12:10 EDT 03/03/2024 11:47 EDT Tissue specimen (specimen) SPECIMEN FROM SKIN / Unknown 03/02/2024 12:10 EDT 03/03/2024 11:47 EDT Sloane Mendoza PAY CLERK PATHOLOGY ORDERABLES [facility] [address] [place] [address] documented in this encounter Visit Diagnoses Diagnosis Melanocytic nevi, unspecified documented in this encounter Care Teams Mica Sizer Relationship Specialty Start Date End Date Unknown, Provider, PCP - General 12/27/08 documented as of this encounter
--- OUTSIDE RECORDS SUMMARY | 2024-06-02 00:26 | XMS_ITS | Encounter Summary ---
[place] [address] Care Team Providers Care Science Faculty Member Name Role Phone None Primary Care Provider Unavailabl e Encounter Details Date Type Department Care Team (Late st Contact Info) Description 01/02/2013 Orders Only Obstetrics [place] [address] Gamaliel Elmore, RN Rh negative state in [...] immunotherapy documented in this encounter Care Teams Science Faculty Member Relationship Specialty Start Date End Date None None PCP - General 08/18/12 09/09/21 documented as of this encounter
--- OUTSIDE RECORDS SUMMARY | 2024-06-02 00:26 | XMS_ITS | Encounter Summary ---
Author Organization [facility] Address [facility] [place] [address] Care Team Providers Care Occ Med Physician Name Role Phone None Primary Care Provider Unavailabl e Encounter Details Date Type Department Care Team (Latest Contact Info) Description 12/28/2012 2:10 PM EDT - 12/28/2012 11:59 PM EDT Hospital Encounter Laboratory [facility] [place] [phone] Bernice Corona MD [facility] DR OBSTETRICS [place] [address] , supervision of, high-risk Discharge Disposition: Home [...] tablet Take 400 Units by mouth daily. [place]-3 Fatty Acids (FISH OIL) 300 mg Cap [...] (ABNORMAL) Differential, Automated (12/28/2012 2:27 PM EDT) Neutrophil % 77.9(H) 34.0 - 71.0 % CERNER MILLENNIUM Neutrophil Absolute 6.32(H) 1.50 - 6.30 x10(3)/mc L CERNER MILLENNIUM Lymph % 16.7(L) 19.0 - 53.0 % CERNER MILLENNIUM Lymphocytes Abs 1.4 1.0 - 3.6 x10(3)/mc L CERNER MILLENNIUM Monocyte % 4.9 4.0 - 13.0 % CERNER MILLENNIUM Monocyte Abs 0.4 0.2 - 1.0 x10(3)/mc L CERNER MILLENNIUM Eos % 0.4 0.0 - 7.0 % CERNER MILLENNIUM Eosinophils Abs 0.0 0.0 - 0.5 x10(3)/mc L CERNER MILLENNIUM Basophil % 0.0 0.0 - 2.0 % CERNER MILLENNIUM Baso Absolute 0.0 0.0 - 0.2 x10(3)/mc L CERNER MILLENNIUM Immature Gran % 0.10 0.00 - 0.66 % CERNER MILLENNIUM Comment: Immature granulocytes(IG's)percentage and absolute count will include metamyelocytes, myelocytes, and promyelocytes. Blood smears from CBCs yielding IG's will be scanned manually for concordance. If this scan disagrees with the automated IG or if promyelocytes are noted, a manual differential will be performed. Immature Gran Absolute 0.01 0.00 - 0.05 x10(3)/mc L RAFITA FERRER Blood specimen (specimen) 12/28/2012 2:27 PM EDT 12/28/2012 2:30 PM EDT Bernice Corona MD HEMATOLOGY ORDERABLE S Performing Organization Address [facility] Co de Phone Number RAFITA FERRER * Antibody screen (12/28/2012 2:27 PM EDT) Ab Screen Interp Negative RAFITA FERRER Expires at [id number] on: [id number] RAFITA FERRER Blood specimen (specimen) 12/28/2012 2:27 PM EDT 12/28/2012 2:35 PM EDT Narrative Resulting Agency Comment Spec In Lab Bernice Corona MD BLOOD BANK LAB ORDER TAN Performing Organization Address [facility] de Phone Number RAFITA FERRER * ABO/Rh Typing (12/28/2012 2:27 PM EDT) ABORH Type O Neg RAFITA FERRER Blood specimen (specimen) 12/28/2012 2:27 PM EDT 12/28/2012 2:35 PM EDT Narrative Resulting Agency Comment Spec In Lab Bernice Corona MD BLOOD BANK LAB ORDER TAN Performing Organization Address [facility] de Phone Number RAFITA FERRER * Glucose 1 Hour Post Prandial (12/28/2012 2:27 PM EDT) Glucose Post Prandial, 1 Hour 98 mg/dL RAFITA FERRER Blood specimen (specimen) 12/28/2012 2:27 PM EDT 12/28/2012 2:30 PM EDT Narrative Resulting Agency Comment Spec In Lab Bernice Corona MD CHEMISTRY ORDERABLES Performing Organization Address [facility] Co de Phone Number RAFITA FERRER * (ABNORMAL) CBC (with Diff) (12/28/2012 2:27 PM EDT) White Blood Cell 8.1 4.0 - 10.0 x10(3)/mc L CERNER MILLENNIUM Red Blood Cell 3.53(L) 3.93 - 5.22 x10(6)/mc L CERNER MILLENNIUM Hemoglobin 10.9(L) 11.2 - 15.7 gm/dL CERNER MILLENNIUM Hematocrit 33.8(L) 34.0 - 45.0 % CERNER MILLENNIUM Mean Cell Volume 95.8(H) 79.0 - 94.0 fL CERNER MILLENNIUM Mean Cell Hemoglobin 30.9 26.6 - 32.2 pg CERNER MILLENNIUM Mean Cell Hemoglobin Concentration 32.2 32.0 - 36.5 gm/dL CERNER MILLENNIUM Platelet 126(L) 145 - 370 x10(3)/mc L CERNER MILLENNIUM RDW Standard Deviation 48.2(H) 35.0 - 46.0 fL CERNER MILLENNIUM RDW coefficient of variation 13.9 10.9 - 14.4 % CERNER MILLENNIUM Mean Platelet Volume 10.1 9.0 - 12.0 fL CERNER MILLENNIUM Blood specimen (specimen) 12/28/2012 2:27 PM EDT 12/28/2012 2:30 PM EDT Narrative Resulting Agency Comment Spec In Lab Bernice Corona MD HEMATOLOGY ORDERABLE S RAFITA FERRER documented in this encounter Visit Diagnoses Diagnosis , supervision of, high-risk Unspecified high-risk documented in this encounter Care Teams Occ Med Physician Relationship Specialty Start Date End Date None None PCP - General 08/18/12 09/09/21 documented as of this encounter
--- OUTSIDE RECORDS SUMMARY | 2024-06-02 00:26 | XMS_ITS | Encounter Summary ---
Author Organization [facility] Address [facility] [place] [address] Care Team Providers Care Mortarman Name Role Phone None Primary Care Provider Unavailabl e Reason for Visit * Reason Comments Care Encounter Details Date Type Department Care Team (Latest Contact Info) Description 04/28/2013 11:30 AM EDT Visit Obstetrics and Gynecology at [facility] [place] [address] Valentina Duran MD [facility] DR OBSTETRICS [place] [address] Subclinical hypothyroidism (Primary Dx); Routine follow-up Discharge [...] PCP Additional Plans: TSH draw at [facility] documented in this encounter Miscellaneous Notes * Miscellaneous - Provider, Scanning - 05/03/2013 8:44 AM EDT documented in this encounter Plan of Treatment Not on file documented as of this encounter Visit Diagnoses Diagnosis Subclinical hypothyroidism- Primary Other specified acquired hypothyroidism Routine follow-up documented in this encounter Care Teams Mortarman Relationship Specialty Start Date End Date None None PCP - General 08/18/12 09/09/21 documented as of this encounter
--- OUTSIDE RECORDS SUMMARY | 2024-06-02 00:26 | XMS_ITS | Encounter Summary ---
Author Organization [facility] Address [facility] [place] [address] Care Team Providers Care Gore Stitcher Name Role Phone None Primary Care Provider Unavailabl e Reason for Visit * Reason Comments Establish Care Encounter Details Date Type Department Care Team (Latest Contact Info) Description 11/30/2012 1:45 PM EDT Initial Obstetrics and Gynecology at [facility] [place] [address] Bernice Corona MD [facility] DR OBSTET[place] [address] GA: [id number] Discharge Disposition: Home Social History [...] transfer of care per patient's wishes from [facility] for elevated TSH in . [place] [...] high-risk Team MFM transfer of care from [facility] at 24 weeks Delivery plan GBS date & Result Cystic fibrosis choice negative Aneuploidy choice declined Others screening tests nutrition Childbirth education preferences Contraception plan condoms Ped/circ plans [facility] Immunizations: Influenza vaccine Accepted [...] History Procedure Date ??? Coccyx removal ??? [place] tooth extraction Family History Problem Relation Age [...] Take 400 Units by mouth daily. ??? [place]-3 Fatty Acids (FISH OIL) 300 mg Cap [...] transfer of care per patient's wishes from [facility] for elevated TSH inpregnancy, opting not to [...] MD Professor Obstetrics & Gynecology and Radiology [facility] * Gamaliel Elmore, RN - 11/30/2012 1:07 PM EDT Here as transfer of care from [facility]. [facility] 03/19/13. Given info on testing for GDM will do labs at [facility].Given newletter from [facility]. documented in this encounter Miscellaneous Notes * Miscellaneous - Provider, Scanning - 12/08/2012 3:19 PM EDT documented in this encounter Plan of Treatment Not on file documented as of this encounter Results * Glucose 1 Hour Post Prandial (12/28/2012 2:27 PM EDT) Glucose Post Prandial, 1 Hour 98 mg/dL [facility] Blood specimen (specimen) 12/28/2012 2:27 PM EDT 12/28/2012 2:30 PM EDT Narrative Resulting Agency Comment Spec In Lab Bernice Corona MD CHEMISTRY ORDERABLES [facility] * (ABNORMAL) CBC (with Diff) (12/28/2012 2:27 PM EDT) White Blood Cell 8.1 4.0 - 10.0 x10(3)/mc L [facility] Red Blood Cell 3.53(L) 3.93 - 5.22 [...] chemistry documented in this encounter Care Teams Gore Stitcher Relationship Specialty Start Date End Date None None PCP - General 08/18/12 09/09/21 documented as of this encounter
--- OUTSIDE RECORDS SUMMARY | 2024-06-02 00:26 | XMS_ITS | Clinical Summary ---
Author Organization [facility] Address [address] [place] [address] Care Team Providers Care Tire Mold Engraver Name Role Phone Unknown, Provider Primary Care Provider [phone] Encounters Date Type Department Care Team Description 03/03/2024 Lab Requisition [facility] Pathology & Laboratory Medicine - [place] [id number] Sloane Mendoza, HOSPITAL PHARMACY TECHNICIAN Melanocytic nevi, unspecified from Last 3 Months [...] - 19+ 3-dose series) 06/01 COVID-19 Vaccine ( season) 2024 Procedures Procedure Name Priority Date/Time Associated Diagnosis [...] management options, if applicable. 03/06/2024 10:[address] [facility] Final Diagnosis A. SKIN OF SHOULDER, LEFT POSTERIOR, SHAVE BIOPSY: - Melanocytic nevus, compound type, with unusual architectural features and mild cytologic atypia, irritated, encompassed within the examined sections. B. SKIN OF MU-ISM/FACE, LEFT, SHAVE BIOPSY: - Seborrheic keratosis, pigmented. 03/06/2024 10:21 [facility] Attestation By the signature below, the attending physician certifies that they have 1) personally conducted a gross and/or microscopic examination of the described specimen(s), and/or personally interpreted the results of laboratory testing of the described specimen(s), and 2) personally rendered or confirmed the above diagnosis. 03/06/2024 10:21 [facility] at 1021 Clinical History Atypical melanocytic nevi; clinical diagnosis code: D22.9 03/06/2024 10:21 [facility] Gross Description A. Received in formalin labelled with proper patient identification (initials M, C) and L posterior shoulder is an elongated dull deal skin shave, 0.6 x 0.2 x 0.1 cm. The margin is inked. Entirely submitted intact in A1. B. Received in formalin labelled with proper patient identification (initials M, C) and L worship/face is an irregular dull deal skin shave, 0.5 x 0.3 x 0.1 cm. The skin surface shows an eccentrically located 0.3 cm brown-black macule. The margin is inked. Entirely submitted intact in B1. LISA MCGEE(ASCP) 03/03/2024 13:41 03/06/2024 10:21 [facility] Performing Lab [facility] 03/06/2024 10:[address] [facility] Scanned Images 03/06/2024 10:21 [facility] Tissue SPECIMEN FROM SKIN / Unknown 03/02/2024 12:10 EDT 03/03/2024 11:47 EDT Tissue specimen (specimen) SPECIMEN FROM SKIN / Unknown 03/02/2024 12:10 EDT 03/03/2024 11:47 EDT Sloane Mendoza HOSPITAL PHARMACY TECHNICIAN PATHOLOGY ORDERABLES [facility] [address] [place] [address] from Last 3 Months Care Teams Tire Mold Engraver Relationship Specialty Start Date End Date Unknown, Provider, PCP - General 12/27/08
--- OUTSIDE RECORDS SUMMARY | 2024-06-02 00:26 | XMS_ITS | Encounter Summary ---
Author Organization [facility] Address [facility] [place] [address] Care Team Providers Care Caltrans Equipment Operator Name Role Phone None Primary Care Provider Unavailabl e Reason for Visit * Reason Comments Rupture of Membranes Encounter Details Date Type Department Care Team (Latest Contact Info) Description 03/10/2013 8:44 PM EDT - 03/12/2013 1:16 PM EDT Hospital [place] [id number] Bernice Cross MD [facility] OBSTETRICS [place] [address] , supervision of, high-risk (Primary Dx) Discharge [...] this in detail. Call your doctor or automatic transmission mechanic for: Fever more than 100.5 Heavy bleeding [...] follow up appointment. [facility] at any time for guidance or for answers to questions that come up prior to you follow up appointment. Your [facility] Provider can be reached during office hours at [facility] [place] [facility] AFTER OFFICE HOURS for the program supervisor or automatic transmission mechanic stone derrickman and rigger Provider electronic signature confirms that discharge instructions [...] tablet Take 400 Units by mouth daily. Wilmer-3 Fatty Acids (FISH OIL) 300 mg Cap [...] for the patient's : Kota Wilson Girl [[id number]] Delivery Date and Time:03/10/2013 10:54 PM Delivery [...] Contraception: condoms care: 6wk routine visit with [facility] Syncope: CBC/BMP and EKG ordered [...] for the patient's : Kota Wilson Girl [[id number]] Delivery Date and Time:03/10/2013 10:54 PM Delivery [...] PPD#1 from . 2 syncopal episodes overnight. Infant nutrition: breast Contraception: no method, have used [...] ice water and voiding as needed. and cuprous chloride operator at bedside and supportive. 2239- pt feeling [...] called and was advised to come to [facility]. She lives over an hour [...] History Procedure Date ??? Coccyx removal ??? [place] tooth extraction OB History Grav Para Term [...] Take 400 Units by mouth daily. ??? Wilmer-3 Fatty Acids (FISH OIL) 300 mg Cap [...] results found for this basename: GLUCDOSE, GLUCBASELINE, UWSTHTD1FI, LABGLUC2, LABGLUC3, Lab Results Component Value Date [...] 03/12/2013 8:40 AM EDT Problem: (Adult, Pediatric, Telferner, NICU, Obstetric) Intervention: Assistance (Obstetric) Pt is [...] EKG to be done. Pt breast feeding infant now and husbandin the ED for a [...] was in stable condition after delivery. The remained in stable condition at the bedside. Information for the patient's : Kota Wilson [[id number]] DELIVERY SUMMARY FOR Kota Wilson (please note [...] Delivery Sex: female Gestational Age: 38.9 weeks. Measurements: Weight: 7 lb 11.1 oz (3490 g) Height: 19.5 Head Circumference: 35.6 cm ChestCircumference: Observed Anomalies: Delivery Clinician: Anahi Guillen Other Providers: Personal Development Coach Resident Delivery Nurse Registered Nurse Bernice QUIROS Staff Present: Delivery Location: delivery room Living?: Yes APGARS One Minute Five Minutes Ten Minutes Skin Color: 1 1 Heart Rate: 2 2 Grimace: 2 2 Muscle Tone: 2 2 Breathin 2 Totals: 9 9 INTERVENTIONS Kota Wilson Resuscitation:Suctioning Suctioning Method: Suctioning [2] Vocal Cords Visualized: Meconium: Resuscitation Comment: Telferner Medications: Meds Given: erythromycin Naloxone Given?: no [...] Attending Physician: Bernice Cross MD Care Provider: [facility] Referring Hospital: n/a Discharge Diagnoses (Hospital Problems) and Secondary Diagnoses (Chronic Problems) There are no hospital problems to display for this patient. Active Non-Hospital Problems Diagnoses ??? , supervision of, high-risk Team MFM transfer of care from [facility] at 24 weeks Delivery plan GBS date & Result Cystic fibrosis choice Negative from prior Aneuploidy choice declined Others screening tests nutrition Childbirth education preferences Contraception plan condoms Ped/circ plans [facility] Immunizations: Influenza vaccine Accepted Declined Contraindicated x Other vaccines Indicated Not indicated Given during Tdap x Pneumovax MMR Varicella x Other ??? RhD negative Rhogam Canidiate Will be getting her 28 week Rhogam at [facility] ??? Raynaud disease Dx 20 years ago and confirmed 1 year ago ??? AMA (advanced maternal age) multigravida 35+ ??? Elevated TSH TSH 3.7 in . No h/o hypothyroid. Pt declines Synthroid. Operations/Major Procedures: Discharged Condition: good Contraceptive Plans: condoms Indication for Admission: Labor Admission History (per admit note) Norm Wilson is a 37 y.o. [id number] 38w6d (MAURA of 03/18/2013 by LMP) was admitted for labor management, PROM. Pt reports lof at 5:50PM this evening of clear fluid. She called and was advised to come to [facility]. She lives over an hour [...] was in stable condition after delivery. The remained in stable condition at the bedside. Norm had 2 syncopal episodes in the night following the delivery. A CBC was wnl and an EKG showed a shortened [place] interval, though nothing grossly abnormal that would [...] Information for the patient's : Kota Wilson [[id number]] INFORMATION Kota Wilson 03/10/2013 10:54 PM by Vaginal, Spontaneous Delivery Sex: female Gestational Age: 38.9 weeks. Telferner Measurements: Weight: 7 lb 11.1 oz (3490 [...] , Oral, DAILY, Until Discontinued, Historical Med Wilmer-3 Fatty Acids (FISH OIL) 300 mg Cap [...] this in detail. Call your doctor or automatic transmission mechanic for: Fever more than 100.5 Heavy bleeding [...] follow up appointment. You may call the [facility] at any time for guidance or for answers to questions that come up prior to you follow up appointment. Your [facility] Provider can be reached during office hours at [facility] AFTER OFFICE HOURS for the program supervisor or automatic transmission mechanic stone derrickman and rigger Provider electronic signature confirms that discharge instructions were reviewed with the patient. A copy was printed and given to the patient. Future Appointments and Orders Future Orders Please Complete By Expires Follow-up [[id number] Custom] Process Instructions: Scheduling Instructions: Comments: - visit 6 weeks after delivery with [facility] provider. Questions: Responses: Provider Contact Information: [facility] DSP ENGINEER Department, Discharge References/Attachments: Discharge References/Attachments None Signed: VALENTINA CHOI MD 03/13/2013 documented in this encounter Plan of Treatment Not on file documented as of this encounter Procedures Procedure Name Priority Date/Time Associated Diagnosis Comments DIFFERENTIAL, AUTOMATED Routine 03/11/2013 11:00 AM EDT CBC (WITH DIFF) Routine 03/11/2013 11:00 AM EDT BASIC METABOLIC PANEL Routine 03/11/2013 11:00 AM EDT EKG 12-LEAD [...] 03/10/2013 9:35 PM EDT TYPE AND SCREEN ([facility]/CGP/PAM) Routine 03/10/2013 9:35 PM EDT SURGICAL PATHOLOGY REPORT Routine 03/10/2013 11:44 AM EDT documented in this encounter Results * (ABNORMAL) Differential, Automated (03/11/2013 11:00 AM EDT) Neutrophil % 85.8(H) 34.0 - 71.0 % CERNER MILLENNIUM Neutrophil Absolute 11.22(H) 1.50 - 6.30 x10(3)/mc L CERNER MILLENNIUM Lymph % 9.2(L) 19.0 - 53.0 % CERNER MILLENNIUM Lymphocytes Abs 1.2 1.0 - 3.6 x10(3)/mc L CERNER MILLENNIUM Monocyte % 4.8 4.0 - 13.0 % CERNER MILLENNIUM Monocyte Abs 0.6 0.2 - 1.0 x10(3)/mc L CERNER MILLENNIUM Eos % 0.0 0.0 - 7.0 % CERNER [...] differential will be performed. Immature Gran Absolute 0.03 0.00 - 0.05 x10(3)/mc L CERNER MILLENNIUM Blood specimen (specimen) 03/11/2013 11:00 AM EDT 03/11/2013 11:21 AM EDT Bernice Cross MD HEMATOLOGY ORDERABLE S CERNER GAYLEENNIUM * (ABNORMAL) Basic Metabolic Panel (non-fasting) (03/11/2013 11:00 AM EDT) Glucose 99 60 - 199 mg/dL CERNER MILLENNIUM Comment:Diabetes: >=200 mg/d L plus symptoms Blood Urea Nitrogen 12 8 - 18 mg/dL CERNER MILLENNIUM Creatinine 0.51(L) 0.70 - 1.20 mg/dL CERNER MILLENNIUM Comment: Please note that the pediatric reference intervals supplied above were not validated at [facility]. Results from pediatric patients should [...] 105 98 - 107 mmol/L CERNER MILLENNIUM Carbon Dioxide 20(L) 22 - 31 mmol/L CERNER MILLENNIUM Anion Gap 11 5 - 15 mmol/L CERNER MILLENNIUM Calcium 8.7 8.5 - 10.5 mg/dL CERNER MILLENNIUM Est Glomerular Filtration Rate >60 >=60 CERNER MILLENNIUM Comment: This estimated [...] Cross MD CHEMISTRY ORDERABLES Performing Organization Address [facility]/ZIP Co de Phone Number RAFITA FERRER * (ABNORMAL) CBC (with Diff) (03/11/2013 11:00 AM EDT) White Blood Cell 13.1(H) 4.0 - 10.0 x10(3)/mc L CERNER MILLENNIUM Red Blood Cell 3.28(L) 3.93 - 5.22 x10(6)/mc L CERNER MILLENNIUM Hemoglobin 10.3(L) 11.2 - 15.7 gm/dL CERNER MILLENNIUM Hematocrit 30.8(L) 34.0 - 45.0 % CERNER MILLENNIUM Mean Cell Volume 93.9 79.0 - 94.0 fL CERNER MILLENNIUM Mean Cell Hemoglobin 31.4 26.6 - 32.2 pg CERNER MILLENNIUM Mean Cell Hemoglobin Concentration 33.4 32.0 - 36.5 gm/dL CERNER MILLENNIUM Platelet 124(L) 145 - 370 x10(3)/mc L CERNER MILLENNIUM RDW Standard Deviation 46.0 35.0 - 46.0 fL CERNER MILLENNIUM RDW coefficient of variation 13.5 10.9 - 14.4 % CERNER MILLENNIUM Mean Platelet Volume 11.3 9.0 - 12.0 fL CERNER MILLENNIUM Blood specimen (specimen) 03/11/2013 11:00 AM EDT 03/11/2013 11:21 AM EDT Narrative Resulting Agency Comment Spec In Lab Bernice Cross MD HEMATOLOGY ORDERABLE S RAFITA FERRER * EKG 12 Lead (03/11/2013 10:58 AM EDT) Ventricular rate 69 BPM MUSE SYSTEM Atrial Rate 69 BPM MUSE SYSTEM P-R Interval 104 ms MUSE SYSTEM QRS Duration 70 ms MUSE SYSTEM Q-T Interval 380 ms MUSE SYSTEM QTC Calculated (Bezet) 407 ms MUSE SYSTEM Calculated P [place] 14 degrees MUSE SYSTEM Calculated R [place] 62 degrees MUSE SYSTEM Calculated T [place] 49 degrees MUSE SYSTEM INTERPRETATION Sinus rhythm with short [place] Otherwise normal ECG No previous ECGs available Confirmed by MD REJI, JODEE ([id number]) on 03/12/2013 11:11:29 AM MUSE SYSTEM 03/11/2013 10:5 8 AM EDT 03/12/2013 11:11 AM EDT Bernice Cross MD ECG ORDERABLES Performing Organization Address [facility] Co de Phone Number MUSE SYSTEM * Specimen to Pathology (NON-OR) (03/10/2013 11:45 PM EDT) AP Specimen 03/10/2013 11:4 5 PM EDT 03/10/2013 11:45 PM EDT Narrative CERNER MILLENNIUM - 03/10/2013 11:45 PM EDT Specimen requisition ordered. ??Separate Pathology report to follow Bernice Cross MD PATHOLOGY/CYTOLOGY O RDERABLES Performing Organization Address [facility] Co de Phone Number [facility] * Ab Comment (03/10/2013 9:35 PM EDT) Ab Information INTERPRETATION : The patient's specimen shows the presence of the antibody anti-D. ??The patient is negative for the RhD antigen. The patient recently received RhIg; the reactivity in the specimen almost certainly represents passive anti-D. ??Unit selection is per routine. Rosio Godfrey MD Transfusion Medicine Service 03/17/13 16:39 [facility] Comment: Rosio Godfrey, Pathologist Verified:03/17/13 Blood specimen (specimen) 03/10/2013 9:35 PM EDT 03/10/2013 9:43 PM EDT Narrative Resulting Agency Comment Spec In Lab Bernice Cross MD BLOOD BANK LAB ORDER TAN Performing Organization Address [facility] Co de Phone Number [facility] * Antibody identification (03/10/2013 9:35 PM EDT) Ab Identified Anti-D passive CERNER MILLENNIUM Blood specimen (specimen) 03/10/2013 9:35 PM EDT 03/10/2013 9:43 PM EDT Narrative Resulting Agency Comment Spec In Lab Bernice Cross MD BLOOD BANK LAB ORDER TAN CERWALTER ARAUJOENNIUM * (ABNORMAL) Differential, Automated (03/10/2013 9:35 PM EDT) Neutrophil % 75.3(H) 34.0 - 71.0 % CERNER MILLENNIUM Neutrophil Absolute 7.47(H) 1.50 - 6.30 x10(3)/mc L CERNER MILLENNIUM Lymph % 18.0(L) 19.0 - 53.0 % CERNER MILLENNIUM Lymphocytes Abs 1.8 1.0 - 3.6 x10(3)/mc L CERNER MILLENNIUM Monocyte % 6.1 4.0 - 13.0 % CERNER MILLENNIUM Monocyte Abs 0.6 0.2 - 1.0 x10(3)/mc L CERNER MILLENNIUM Eos % 0.1 0.0 - 7.0 % CERNER MILLENNIUM Eosinophils Abs 0.0 0.0 - 0.5 x10(3)/mc L CERNER MILLENNIUM Basophil % 0.1 0.0 - 2.0 % CERNER MILLENNIUM Baso [...] differential will be performed. Immature Gran Absolute 0.04 0.00 - 0.05 x10(3)/mc L CERNER MILLENNIUM Blood specimen (specimen) 03/10/2013 9:35 PM EDT 03/10/2013 9:42 PM EDT Bernice Cross MD HEMATOLOGY ORDERABLE S RAFITA ARAUJOENNIUM * Antibody screen (03/10/2013 9:35 PM EDT) Ab Screen Interp Positive CERNER MILLENNIUM Expires at [id number] on: [id number] CERNER MILLENNIUM Blood specimen (specimen) 03/10/2013 9:35 PM EDT 03/10/2013 9:43 PM EDT Narrative Resulting Agency Comment Spec In Lab Bernice Cross MD BLOOD BANK LAB ORDER TAN RAFITA DE LA CRUZIUM * ABO/Rh Typing (03/10/2013 9:35 PM EDT) Pathologist [facility] ABORH Type O Neg CERNER GAYLEENNIUM Blood specimen (specimen) 03/10/2013 9:35 PM EDT 03/10/2013 9:43 PM EDT Narrative Resulting Agency Comment Spec In Lab Bernice Cross MD BLOOD BANK LAB ORDER TAN RAFITA ARAUJOENNIUM * (ABNORMAL) CBC (with Diff) (03/10/2013 9:35 PM EDT) Pathologist [facility] White Blood Cell 9.9 4.0 - 10.0 x10(3)/mc L CERNER MILLENNIUM Red Blood Cell 4.01 3.93 - 5.22 x10(6)/mc L CERNER MILLENNIUM Hemoglobin 12.8 11.2 - 15.7 gm/dL CERNER MILLENNIUM Hematocrit 37.4 34.0 - 45.0 % CERNER MILLENNIUM Mean Cell Volume 93.3 79.0 - 94.0 fL CERNER MILLENNIUM Mean Cell Hemoglobin 31.9 26.6 - 32.2 pg CERNER MILLENNIUM Mean Cell Hemoglobin Concentration 34.2 32.0 - 36.5 gm/dL CERNER MILLENNIUM Platelet 125(L) 145 - 370 x10(3)/mc L CERNER MILLENNIUM RDW Standard Deviation 45.8 35.0 - 46.0 fL CERNER MILLENNIUM RDW coefficient of variation 13.4 10.9 - 14.4 % RAFITA DE LA CRUZIUM Mean Platelet Volume 11.3 9.0 - 12.0 fL RAFITA DE LA CRUZIUM Blood specimen (specimen) 03/10/2013 9:35 PM EDT 03/10/2013 9:42 PM EDT Narrative Resulting Agency Comment Spec In Lab Bernice Cross MD HEMATOLOGY ORDERABLE S RAFITA FERRER * Surgical Pathology Report (03/10/2013 11:44 AM EDT) Surgical Pathology Report ? [facility] ? Provider: ?? BERNICE CROSS ?Pt. Name: ?? NORM WILSON ? Acc #: ?[id number] ?Pt. ? Col Date: ?? 03/10/2013 ? [...] centimeter, 347 grams. ? Tissue Description: Intact, gracia, discoid placenta. ? Membranes: Circum-marginate insertion, pink [...] Amara Robles RN)2049 (Given - Provider: Bernice Henderson RN) 0900 (Given - Provider: Amara Robles RN) PRN Medication Order 03/10/2013 03/11/2013 03/12/2013 ibuprofen [...] Amara Robles RN)2130 (Given - Provider: Bernice Henderson RN) 0835 (Given - Provider: Amara Robles RN) Linked Groups Order Group 1: ibuprofen (ADVIL;MOTRIN) [...] Oral, EVERY 8 HOURS PRN, Starting on Wed03/10/13 at 2344, Until 03/12/13 at 1516, Pain, severe pain, Do not give if receiving ketorolac. Maximum dose of 3,200 mg from all sources in 24 hours., Routine documented in this encounter Care Teams Caltrans Equipment Operator Relationship Specialty Start Date End Date None None PCP - General 08/18/12 09/09/21 documented as of this encounter
--- OUTSIDE RECORDS SUMMARY | 2024-06-02 00:26 | XMS_ITS | Encounter Summary ---
Author Organization [facility] Address [facility] [place] [address] Care Team Providers Care Election Assistant Name Role Phone None Primary Care Provider Unavailabl e Reason for Visit * Reason Comments Advice Only Encounter Details Date Type Department Care Team (Late st Contact Info) Description 09/06/2012 2:45 PM EST Office Visit Obstetrics and Gynecology at [facility] [place] [address] Valentina Mae MD [facility] DR OBSTETRICS [place] [address] Unspecified high-risk (Primary Dx) Discharge Disposition: Home [...] Take 400 Units by mouth daily. ??? [place]-3 Fatty Acids (FISH OIL) 300 mg Cap [...] Cc: Ed Mccarthy CN [address] [place] [address] , with copy of ultrasound report Addendum: TSH 5.48, FT4 1.11, FT3 2.8. Called patient and discussed results. Has subclinical hypothyroidism. Recommend consider taking synthroid 25mcg QD and script called to pharmacy. [facility] results, recommend [...] Thyroid peroxidase antibody (09/06/2012 3:06 PM EST) Thyroperoxidase Ab 14 <=34 IU/mL [facility] MILL[facility] Blood specimen (specimen) 09/06/2012 3:06 PM EST 09/07/2012 8:18 AM EST Narrative Resulting Agency Comment Spec In Lab Valentina Mae MD IMMUNOLOGY ORDERAB LES CERWALTER DE LA CRUZIUM * T3, free (09/06/2012 3:06 PM EST) Free T3 2.8 2.0 - 3.5 pg/mL [facility] Comment: Test Performed by: [facility] [employer] [place] [address] Commercial Census Taker: Alice Sanchez, Ph.D. Blood specimen (specimen) 09/06/2012 3:06 PM EST 09/06/2012 4:07 PM EST Narrative Resulting Agency Comment Spec In Lab Valentina Mae MD CHEMISTRY ORDERABL ES Performing Organization Address [facility]/ZIP Co de Phone Number [facility] * T4, free (09/06/2012 3:06 PM EST) Free T4 1.11 0.90 - 1.60 ng/dL [facility] Blood specimen (specimen) 09/06/2012 3:06 PM EST 09/06/2012 3:12 PM EST Narrative Resulting Agency Comment Spec In Lab Valentina Mae MD CHEMISTRY ORDERABL ES [facility] JONOI[facility] * (ABNORMAL) TSH (09/06/2012 3:06 PM EST) Thyroid Stimulating Hormone 5.48(H) 0.27 - 4.20 mcIU/mL CERNER MILLENNIUM Blood specimen (specimen) 09/06/2012 3:06 PM EST 09/06/2012 3:12 PM EST Narrative Resulting Agency Comment Spec In Lab Valentina Mae MD CHEMISTRY ORDERABL ES [facility] documented in this encounter Visit Diagnoses Diagnosis Unspecified high-risk - Primary documented in this encounter Care Teams Election Assistant Relationship Specialty Start Date End Date None None PCP - General 08/18/12 09/09/21 documented as of this encounter
--- OUTSIDE RECORDS SUMMARY | 2024-06-02 00:26 | XMS_ITS | Encounter Summary ---
Author Organization [facility] Address [facility] [place] [address] Care Team Providers Care Kitchen Steward Name Role Phone None Primary Care Provider Unavailabl e Reason for Visit * Reason Comments Routine Visit Encounter Details Date Type Department Care Team (Late st Contact Info) Description 02/15/2013 1:15 PM EDT Routine Obstetrics [place] [address] Valentina Mae MD [facility] [address] OBSTETRICS [place] [address] GA: 35w4d Discharge Disposition: Home Social History [...] B Streptococcus Screen (02/15/2013 5:09 PM EDT) GBS Screen Neg [facility] Pooled specimen from vaginal introitus and rectal swab (specimen) 02/15/2013 5:09 PM EDT 02/15/2013 5:09 PM EDT Comment:PENICILLIN ALLERGY?- >NO Narrative Resulting Agency Comment Spec In Lab Valentina Mae MD MICROBIOLOGY - GEN ERAL ORDERABLES Performing Organization Address City/State/[facility] Co de Phone Number [facility] * Group B Strep Culture Screen (02/15/2013 5:09 PM EDT) Group B Streptococcus Culture ? Patient Name: NORM QUEVEDO ? Ordered By: VALENTINA MAE ? MR#: [id number] ?LOC: ??5L ? /Sex: ??1975 (37 years), ? Female ? PROCEDURE: Group B Streptococcus Culture ?SOURCE: Vag/Rectal ? COLLECTED: 02/15/2013 17:09 ?FREE TEXT SOURCE: Penicillin Allergy?->No ? STARTED: 02/15/2013 17:09 ? FINAL REPORT ? Final Report ? Verified: 013 08:55 ? No Group B Streptococci isolated ? PRELIMINARY REPORT ? Preliminary Report ? Verified: 013 11:37 ? Culture in progress ? CERNER MILLENNIUM Pooled specimen from vaginal introitus and rectal swab (specimen) 02/15/2013 5:09 PM EDT 02/15/2013 5:09 PM EDT Comment:PENICILLIN ALLERGY?- >NO Narrative Resulting Agency Comment Spec In Lab Valentina Mae MD MICROBIOLOGY - GEN ERAL ORDERABLES [facility] documented in this encounter Visit Diagnoses Diagnosis Unspecified high-risk - Primary documented in this encounter Care Teams Kitchen Steward Relationship Specialty Start Date End Date None None PCP - General 08/18/12 09/09/21 documented as of this encounter
--- OUTSIDE RECORDS SUMMARY | 2024-06-02 00:26 | XMS_ITS | Encounter Summary ---
Author Organization [facility] Address [address] [place] [address] Care Team Providers Care Tone Regulator Name Role Phone Unknown, Provider Primary Care Provider Encounter Details Date Type Department Care Team (Late st Contact Info) Description 08/23/2021 Lab Requisition [facility] Pathology & Laboratory Medicine - [address] [address] Outr Resulting Lab, Provider Social History Tobacco [...] 97 - 169 ng/dL 08/24/2021 17:12 EST [facility] Blood VENOUS BLOOD / Unknown 08/22/2021 9:55 EST 08/24/2021 16:19 EST Provider Outr Resulting Lab CHEMISTRY & BLOOD GAS ORDERABLES [facility] [address] [place] [address] documented in this encounter Visit Diagnoses Not on filedocumented in this encounter Care Teams Tone Regulator Relationship Specialty Start Date End Date Unknown, ProviderMD PCP - General 12/27/08 documented as of this encounter
--- OUTSIDE RECORDS SUMMARY | 2024-06-02 00:26 | XMS_ITS | Encounter Summary ---
Author Organization [facility] Address [facility] [address] Care Team Providers Care System Development Engineer Name Role Phone None Primary Care Provider Unavailabl e Encounter Details Date Type Department Care Team (Late st Contact Info) Description 03/10/2013 Telephone Obstetrics [place] [address] Valentina Choi MD [facility] DR OBSTETRICS & [place] [address] Social History Tobacco Use Types Packs/Day Years [...] close together and felt comfortable traveling to [facility], that she could come and be assessed here. If contractions were coming strongly and closer together, she was advised to stop at the nearest hospital. Pt understood and would like to come to [facility] for care. ERI Choi MD PGY3 documented in this encounter Plan of Treatment Not on file documented as of this encounter Visit Diagnoses Not on filedocumented in this encounter Care Teams System Development Engineer Relationship Specialty Start Date End Date None None PCP - General 08/18/12 09/09/21 documented as of this encounter
== END 2024-06-02 00:44 ==
LOC: DI 00:24
PROVIDERS: PCP Nurse Practitioner Family; Visit Provider Nurse Practitioner Family
DX: Z12.31 Encounter for screening mammogram for malignant neoplasm of breast (principal)
CPT/HCPCS: 77063; 77067

== ENCOUNTER 2024-06-30 16:36 | Outpatient (REF) | payer BC, SELFPAY ==
--- NOTE | 2024-06-30 14:15 | SKI_PTH ---
PATIENT: Belkis Wilson LOC: [facility] U#:[id number] AGE/SX: 49/F ROOM: RE06/30/[address]: Mac Hu DO : 1975 BED: DIS: 06/30/2024 SPEC #: [id number] RECD: 06/30/24 18:07 STATUS: CHRIS REQ #: [id number] ANKIT: 06/30/24 14:[address]: Mac Hu DEPT: Surgical Specimen RECD BY: Alice Cook ENTERED: 06/30/24 18:07 SP TYPE: RAVIN PHELPS DR: Sloane Mendoza Tissues: 1 - SKIN BIOPSY(SHAVE/PUNCH) 2 - SKIN BIOPSY(SHAVE/PUNCH) Procedures: SKIN LEVEL 4 Comments: [id number]
--- OUTSIDE RECORDS SUMMARY | 2024-06-30 16:38 | XMS_ITS | Encounter Summary ---
Author Organization Pending [facility] To [facility] Address [facility] [place] [address] Care Team Providers Care Machine Cloth Measurer Name Role Phone None Primary Care Provider Unavailabl e Reason for Visit * Reason Comments Routine Visit Encounter Details Date Type Department Care Team (Latest Contact Info) Description 02/27/2013 2:30 PM EDT Routine Obstetrics [place] [address] Bernice Corona MD [facility] DR OBSTETRICS [place] [address] GA: [id number] Discharge Disposition: Home Social History [...] syndrome documented in this encounter Care Teams Machine Cloth Measurer Relationship Specialty Start Date End Date None None PCP - General 08/18/12 09/09/21 documented as of this encounter
--- OUTSIDE RECORDS SUMMARY | 2024-06-30 16:38 | XMS_ITS | Encounter Summary ---
Author [place] [address] Care Team Providers Care Air Tool Operator Name Role Phone None Primary Care Provider Unavailabl e Encounter Details Date Type Department Care Team (Late st Contact Info) Description 01/02/2013 Orders Only Obstetrics [place] [address] Gamaliel Elmore, RN Rh negative state in [...] immunotherapy documented in this encounter Care Teams Air Tool Operator Relationship Specialty Start Date End Date None None PCP - General 08/18/12 09/09/21 documented as of this encounter
--- OUTSIDE RECORDS SUMMARY | 2024-06-30 16:38 | XMS_ITS | Clinical Summary ---
Author Organization [facility] Address [address] [place] [address] Care Team Providers Care Special Education Educational Assistant Name Role Phone Unknown, Provider Primary Care Provider Unava ilable Social History Tobacco Use Types Packs/Day Years Used Date Smoking Tobacco: Never Assessed Comments Unknown Sex and Gender Information Value Date Recorded Sex Assigned at Not on file Legal Sex Female 18:45 EST Gender Identity Not on file Sexual Orientation Not on file Plan of Treatment Health Maintenance Due Date Last Done Comments Hepatitis C Screen 1975 Hepatitis B Vaccine (1 of 3 - 19+ 3-dose series) 06/01 COVID-19 Vaccine ( season) 2024 Insurance [facility] Care Teams Special Education Educational Assistant Relationship Specialty Start Date End Date Unknown, Provider, PCP - General 12/27/08
--- OUTSIDE RECORDS SUMMARY | 2024-06-30 16:38 | XMS_ITS | Encounter Summary ---
Author Organization [facility] Address [facility] [place] [address] Care Team Providers Care Chemicals Distiller Name Role Phone None Primary Care Provider Unavailabl e Reason for Visit * Reason Comments Routine Visit Encounter Details Date Type Department Care Team (Latest Contact Info) Description 01/31/2013 2:00 PM EDT Routine Obstetrics [place] [address] Gamaliel Lopez MD [facility] DR OBSTETRICS & [place] [address] GA: [id number] Discharge Disposition: Home Social History [...] chemistry documented in this encounter Care Teams Chemicals Distiller Relationship Specialty Start Date End Date None None PCP - General 08/18/12 09/09/21 documented as of this encounter
--- OUTSIDE RECORDS SUMMARY | 2024-06-30 16:38 | XMS_ITS | Encounter Summary ---
Author Organization [facility] Address [facility] [place] [address] Care Team Providers Care Program Architect Name Role Phone None Primary Care Provider Unavailabl e Encounter Details Date Type Department Care Team (Latest Contact Info) Description 12/28/2012 2:10 PM EDT - 12/28/2012 11:59 PM EDT Hospital Encounter Laboratory [facility] [place] [address] Bernice Corona MD [facility] DR OBSTETRICS [place] [address] , supervision of, high-risk Discharge Disposition: Home [...] tablet Take 400 Units by mouth daily. [place]-3 Fatty Acids (FISH OIL) 300 mg Cap [...] MD HEMATOLOGY ORDERABLE S Performing Organization Address [facility] Co de Phone Number RAFITA FERRER * Antibody screen (12/28/2012 2:27 PM EDT) Ab Screen Interp Negative RAFITA FERRER Expires at [id number] on: [id number] RAFITA FERRER Blood specimen (specimen) 12/28/2012 2:27 PM EDT 12/28/2012 2:35 PM EDT Narrative Resulting Agency Comment Spec In Lab Bernice Corona MD [facility] LAB ORDER TAN Performing Organization Address [facility] de Phone Number RAFITA FERRER * ABO/Rh Typing (12/28/2012 2:27 PM EDT) ABORH Type O Neg RAFITA FERRER Blood specimen (specimen) 12/28/2012 2:27 PM EDT 12/28/2012 2:35 PM EDT Narrative Resulting Agency Comment Spec In Lab Bernice Corona MD BLOOD BANK LAB ORDER TAN Performing Organization Address [facility] de Phone Number RAFITA FERRER * Glucose 1 Hour Post Prandial (12/28/2012 2:27 PM EDT) Glucose Post Prandial, 1 Hour 98 mg/dL RAFITA FERRER Blood specimen (specimen) 12/28/2012 2:27 PM EDT 12/28/2012 2:30 PM EDT Narrative Resulting Agency Comment Spec In Lab Bernice Corona MD CHEMISTRY ORDERABLES Performing Organization Address [facility] Co de Phone Number RAFITA [...] high-risk documented in this encounter Care Teams Program Architect Relationship Specialty Start Date End Date None None PCP - General 08/18/12 09/09/21 documented as of this encounter
--- OUTSIDE RECORDS SUMMARY | 2024-06-30 16:38 | XMS_ITS | Encounter Summary ---
Author Organization [facility] Address [facility] [place] [address] Care Team Providers Care Student Accounts Manager Name Role Phone None Primary Care Provider Unavailabl e Encounter Details Date Type Department Care Team (Late st Contact Info) Description 03/10/2013 Telephone Obstetrics [place] [address] Valentina Choi MD [facility] DR OBSTETRICS & [place] [address] Social History Tobacco Use Types Packs/Day Years [...] close together and felt comfortable traveling to [facility] that she could come and be assessed here. If contractions were coming strongly and closer together, she was advised to stop at the nearest hospital. Pt understood and would like to come to [facility] for [place]. ERI Choi MD PGY3 documented in this encounter Plan of Treatment Not on file documented as of this encounter Visit Diagnoses Not on filedocumented in this encounter Care Teams Student Accounts Manager Relationship Specialty Start Date End Date None None PCP - General 08/18/12 09/09/21 documented as of this encounter
--- OUTSIDE RECORDS SUMMARY | 2024-06-30 16:38 | XMS_ITS | Encounter Summary ---
Author Organization [facility] Address [facility] [place] [address] Care Team Providers Care Hooker Machine Tender Name Role Phone None Primary Care Provider Unavailabl e Reason for Visit * Reason Comments Establish Care Encounter Details Date Type Department Care Team (Latest Contact Info) Description 11/30/2012 1:45 PM EDT Initial Obstetrics and Gynecology at [facility] [place] [address] Bernice Corona MD [facility] DR OBSTETRICS [place] [address] GA: [id number] Discharge Disposition: Home Social History [...] transfer of care per patient's wishes from [facility] for elevated TSH in . [place] [...] high-risk Team MFM transfer of care from [facility] at 24 weeks Delivery plan GBS date & Result Cystic fibrosis choice negative Aneuploidy choice declined Others screening tests nutrition Childbirth education preferences Contraception plan condoms Ped/circ plans [facility] Immunizations: Influenza vaccine Accepted [...] History Procedure Date ??? Coccyx removal ??? [place] tooth extraction Family History Problem Relation Age [...] Take 400 Units by mouth daily. ??? [place]-3 Fatty Acids (FISH OIL) 300 mg Cap [...] transfer of care per patient's wishes from [facility] for elevated TSH inpregnancy, opting not to [...] MD Professor Obstetrics & Gynecology and Radiology [facility] * Gamaliel Elmore, RN - 11/30/2012 1:07 PM EDT Here as transfer of care from [facility]. [facility] 03/19/13. Given info on testing for GDM will do labs at [facility].Given newletter from [facility]. documented in this encounter Miscellaneous Notes * Miscellaneous - Provider, Scanning - 12/08/2012 3:19 PM EDT documented in this encounter Plan of Treatment Not on file documented as of this encounter Results * Glucose 1 Hour Post Prandial (12/28/2012 2:27 PM EDT) Glucose Post Prandial, 1 Hour 98 mg/dL [facility] Blood specimen (specimen) 12/28/2012 2:27 PM EDT 12/28/2012 2:30 PM EDT Narrative Resulting Agency Comment Spec In Lab Bernice Corona MD CHEMISTRY ORDERABLES [facility] * (ABNORMAL) CBC (with Diff) (12/28/2012 2:27 PM EDT) White Blood Cell 8.1 4.0 - 10.0 x10(3)/mc L [facility] Red Blood Cell 3.53(L) 3.93 - 5.22 [...] chemistry documented in this encounter Care Teams Hooker Machine Tender Relationship Specialty Start Date End Date None None PCP - General 08/18/12 09/09/21 documented as of this encounter
--- OUTSIDE RECORDS SUMMARY | 2024-06-30 16:38 | XMS_ITS | Encounter Summary ---
Author Organization Health system Address [address] [place] [address] Care Team Providers Care Engine Dispatcher Name Role Phone Unknown, Provider Primary Care Provider Unava ilable Encounter Details Date Type Department Care Team (Latest Contact Info) Description 02/04/2024 Lab Requisition [facility] Pathology & Laboratory Medicine - [address] [address] Sloane Mendoza FNP [facility] SARTHAK YEUNG [facility] [address] [place] [address] Encounter for screening for malignant [...] Risk types, PCR Negative Negative 02/10/2024 14:26 T [facility] Comment: The following Other High Risk HPV types were not detected: ??31,33, 35, 39, 45, 51, 52, 56, 58, 59, 66 and 68. HPV High Risk type 16, PCR Negative Negative 02/10/2024 14:26 EDT [facility] HPV High Risk type 18, PCR Negative Negative 02/10/2024 14:26 [facility] Pap Test CERVIX UTERI STRUCTURE / Unknown 02/03/2024 14:30 EDT 02/09/2024 11:34 EDT Sloane Mendoza SUPERVISOR ORNAMENTAL IRONWORKING MICROBIOLOGY - GENERAL ORDERA BLES Final Result [facility] [address] [place] [id number] * PAP TEST (02/03/2024 14:30 EDT) Specimens A. Cervix and/or Endocervix , ThinPrep Imaging System with Manual Evaluation 02/10/2024 14:26 [facility] Specimen Adequacy Satisfactory for Evaluation - transformation zone component present 02/10/2024 14:26 [facility] General Categorization Negative for intraepithelial lesion or malignancy 02/10/2024 14:26 [facility] Attestation . 02/10/2024 14:26 [facility] at 1426 Clinical History See below 02/10/20 14:26 [facility] HPV Human Papillomavirus (HPV) Detection-High Risk Types Negative The following Other High Risk HPV types were not detected: 31,33, 35, 39, 45, 51, 52, 56, 58, 59, 66 and 68. HPV High Risk type 16, PCR Negative HPV High Risk type 18, PCR Negative 02/10/2024 14:26 [facility] Performing Lab [facility] 02/10/2024 14:26 [facility] Scanned Images 02/10/2024 14:26 EDT [facility] Pap Test CERVIX UTERI STRUCTURE / Unknown 02/03/2024 14:30 EDT 02/04/2024 9:13 EDT us Sloane Mendoza SUPERVISOR ORNAMENTAL IRONWORKING PATHOLOGY ORDERABLES Final Re sult [facility] [address] [place] [address] documented in this encounter Visit Diagnoses Diagnosis Encounter for screening for malignant neoplasm of cervix Screening for malignant neoplasm of the cervix Encounter for gynecological examination (general) (routine) without abnormal findings documented in this encounter Care Teams Engine Dispatcher Relationship Specialty Start Date End Date Unknown, Provider, PCP - General 12/27/08 documented as of this encounter
--- OUTSIDE RECORDS SUMMARY | 2024-06-30 16:38 | XMS_ITS | Encounter Summary ---
Author Organization [facility] Address [facility] [place] [address] Care Team Providers Care Flask Carrier Name Role Phone None Primary Care Provider Unavailabl e Encounter Details Date Type Department Care Team (Late st Contact Info) Description 01/16/2013 10:00 AM EDT Office Visit Obstetrics [place] [address] [facility] [place] [address] Excess weight gain in (Primary Dx) Social [...] care documented in this encounter Care Teams Flask Carrier Relationship Specialty Start Date End Date None None PCP - General 08/18/12 09/09/21 documented as of this encounter
--- OUTSIDE RECORDS SUMMARY | 2024-06-30 16:38 | XMS_ITS | Encounter Summary ---
Author Organization [facility] Address [facility] [place] [address] Care Team Providers Care Hemming And Tacking Machine Operator Name Role Phone None Primary Care Provider Unavailabl e Reason for Visit * Reason Comments Routine Visit Encounter Details Date Type Department Care Team (Late st Contact Info) Description 02/15/2013 1:15 PM EDT Routine Obstetrics [place] [address] Valentina Mae MD [facility] DR OBSTETRICS [place] [address] GA: [id number] Discharge Disposition: Home Social History [...] (02/15/2013 5:09 PM EDT) GBS Screen Neg [facility] Pooled specimen from vaginal introitus and rectal swab (specimen) 02/15/2013 5:09 PM EDT 02/15/2013 5:09 PM EDT Comment:PENICILLIN ALLERGY?- >NO Narrative Resulting Agency Comment Spec In Lab Valentina Mae MD MICROBIOLOGY - GEN ERAL ORDERABLES Performing Organization Address City/State/[facility] Co de Phone Number [facility] * Group B Strep Culture Screen (02/15/2013 5:09 PM EDT) Group B Streptococcus Culture ? Patient Name: NORM QUEVEDO ? Ordered By: VALENTINA MAE ? MR#: [id number] ?LOC: ??5L ? /Sex: ??1975 (37 years), [...] MD MICROBIOLOGY - GEN ERAL ORDERABLES [facility] documented in this encounter Visit Diagnoses Diagnosis Unspecified high-risk - Primary documented in this encounter Care Teams Hemming And Tacking Machine Operator Relationship Specialty Start Date End Date None None PCP - General 08/18/12 09/09/21 documented as of this encounter
--- OUTSIDE RECORDS SUMMARY | 2024-06-30 16:38 | XMS_ITS | Encounter Summary ---
Author Organization [facility] Address [address] [place] [address] Care Team Providers Care Indexer Name Role Phone Unknown, Provider Primary Care Provider Unava ilable Encounter Details Date Type Department Care Team (Late st Contact Info) Description 03/03/2024 Lab Requisition [facility] Pathology & Laboratory Medicine - [address] [address] Sloane Mendoza FNP [facility] SARTHAK YEUNG [facility] [address] [place] [id number] Melanocytic nevi, unspecified Social History Tobacco Use [...] management options, if applicable. 03/06/2024 10:21 EDT [facility] Final Diagnosis A. SKIN OF SHOULDER, LEFT POSTERIOR, SHAVE BIOPSY: - Melanocytic nevus, compound type, with unusual architectural features and mild cytologic atypia, irritated, encompassed within the examined sections. B. SKIN OF NONDENOMINATIONAL/FACE, LEFT, SHAVE BIOPSY: - Seborrheic keratosis, pigmented. 03/06/2024 10:21 [facility] Attestation By the signature below, the attending physician certifies that they have 1) personally conducted a gross and/or microscopic examination of the described specimen(s), and/or personally interpreted the results of laboratory testing of the described specimen(s), and 2) personally rendered or confirmed the above diagnosis. 03/06/2024 10:21 [facility] at 1021 Clinical History Atypical melanocytic nevi; clinical diagnosis code: D22.9 03/06/2024 10:21 [facility] Gross Description A. Received in formalin labelled with proper patient identification (initials M, C) and L posterior shoulder is an elongated dull deal skin shave, 0.6 x 0.2 x 0.1 cm. The margin is inked. Entirely submitted intact in A1. B. Received in formalin labelled with proper patient identification (initials M, C) and L spiritism/face is an irregular dull deal skin shave, 0.5 x 0.3 x 0.1 cm. The skin surface shows an eccentrically located 0.3 cm brown-black macule. The margin is inked. Entirely submitted intact in B1. LISA MCGEE(ASCP) 03/03/2024 13:41 03/06/2024 10:21 T [facility] Performing Lab [facility] 03/06/2024 10:21 T [facility] Scanned Images 03/06/2024 10:21 [facility] Tissue SPECIMEN FROM SKIN / Unknown 03/02/2024 12:10 EDT 03/03/2024 11:47 EDT Tissue specimen (specimen) SPECIMEN FROM SKIN / Unknown 03/02/2024 12:10 EDT 03/03/2024 11:47 EDT Sloane Mendoza SUPERVISOR TELEPHONE CLERKS PATHOLOGY ORDERABLES Final Re sult [facility] [address] [place] [address] documented in this encounter Visit Diagnoses Diagnosis Melanocytic nevi, unspecified documented in this encounter Care Teams Indexer Relationship Specialty Start Date End Date Unknown, Provider, PCP - General 12/27/08 documented as of this encounter
--- OUTSIDE RECORDS SUMMARY | 2024-06-30 16:38 | XMS_ITS | Encounter Summary ---
Author Organization [facility] Address [facility] [place] [address] Care Team Providers Care Stock Handler Name Role Phone None Primary Care Provider Unavailabl e Reason for Visit * Reason Comments Routine Visit Encounter Details Date Type Department Care Team (Latest Contact Info) Description 12/28/2012 1:00 PM EDT Routine Obstetrics [place] [address] Gamaliel Lopez MD [facility] DR OBSTETRICS & [place] [address] GA: [id number] Discharge Disposition: Home Social History [...] - 12/28/2012 1:38 PM EDT Welcome to [employer], your secure online access to your electronic medical record at [facility]. Using [employer] you will be able to send messages to your providers, view your test results, renew prescriptions, schedule appointments, and much more. Follow these instructions to enter your personal [employer] account for the first time: 1. Start your internet browser and type [email or web address] into the address bar. 2. In the New User box on the right-hand side of the Welcome page click the link that states, ???I have an activation code.?? 3. On the Identification page, follow these steps: a) Enter your [employer] activation code: [email or web address] b) Expires: 02/11/2013 1:38 PM IMPORTANT: This Activation Code will on the above mentioned date. If you do not sign up for [employer] by this date, you will need to request another activation code. c) Enter your date of , using the calendar tool provided. d) Enter your Zip code. e) Select ???submit?? to go to the next page. 4. On the Create Account page, follow these steps: a) Create a [employer] username. This can???t be changed, so choose [...] record. If you have any questions about [employer] or your Access Code, please call for [place], for [place] or for [place]. If you need technical support, please e-mail [...] She has a protein yogurt shake in on license of [facility] with lots of fruit, lunch is [...] Lopez MD CHEMISTRY ORDERABLES Performing Organization Address [facility] Co de Phone Number RAFITA FERRER * TSH (12/28/2012 2:27 PM EDT) Thyroid Stimulating Hormone 3.50 0.27 - 4.20 mcIU/mL RAFITA DE LA CRUZIUM Blood specimen (specimen) 12/28/2012 2:27 PM EDT 12/28/2012 2:30 PM EDT Narrative Resulting Agency Comment Spec In Lab Gamaliel Lopez MD CHEMISTRY ORDERABLES Performing Organization Address [facility] Co de Phone Number RAFITA FERRER documented in this encounter Visit Diagnoses Diagnosis Elevated TSH- Primary Other abnormal blood chemistry , supervision of, high-risk Unspecified high-risk RhD negative Need for prophylactic immunotherapy documented in this encounter Care Teams Stock Handler Relationship Specialty Start Date End Date None None PCP - General 08/18/12 09/09/21 documented as of this encounter
--- OUTSIDE RECORDS SUMMARY | 2024-06-30 16:38 | XMS_ITS | Encounter Summary ---
Author Organization [facility] Address [address] [place] [address] Care Team Providers Care Antiquer Name Role Phone Unknown, Provider Primary Care Provider Unava ilable Encounter Details Date Type Department Care Team (Late st Contact Info) Description 12/27/2008 Orders Only [facility] Laboratory Services - [facility] ([facility] [address] [place], [place] [address] Marisol Heath, [facility] [address] [place] [address] [place] [address] Social History Tobacco Use Types [...] ? NORM QUEVEDO ? Accession #: ? [id number] ? : ? 1975 (Age: 33) ??F ?Collect Date: ? 12/27/2008 ? Location: ? [facility] ? Receive Date: ? 12/27/2008 ? Provider: ?MARISOL BRUNO ELEVATOR OPERATOR SERVICE ? Copy to: ? Specimen/Source: ?Pap Test, [...] of Report ? [facility] 12/27/2008 12/27/2008 us Marisol Heath ELEVATOR OPERATOR SERVICE PATHOLOGY ORDERABLES Final R esult [facility] [address] [place] [address] documented in this encounter Visit Diagnoses Not on filedocumented in this encounter Care Teams Antiquer Relationship Specialty Start Date End Date Unknown, Provider, PCP - General 12/27/08 documented as of this encounter
--- OUTSIDE RECORDS SUMMARY | 2024-06-30 16:38 | XMS_ITS | Encounter Summary ---
Author Organization [facility] [place] [address] Care Team Providers Care Tire Maker Name Role Phone None Primary Care Provider Unavailabl e Reason for Referral * Consultation (Routine) - Closed Specialty Diagnoses / Procedures Referred By Contac t Referred To Contact Endocrinology Diagnoses , supervision of, high-risk Elevated TSH AMA (advanced maternal age) multigravida 35+ Apollo Hill MD [facility] OBSTETRICS [place] [address] [facility] [address] [place] [id number] Referral ID Status Reason Start Date Expiration Date V isits Requested Visits Authorized [id number] Closed Consult, Test & Treat 01/16/2013 07/15/2013 1 1 Reason for Visit * Reason Comments Routine Visit Encounter Details Date Type Department Care Team (Latest Contact Info) Description 01/16/2013 11:15 AM EDT Routine Obstetrics [place] [address] Apollo Hill MD [facility] OBSTETRICS [place] [address] GA: 31w2d Discharge Disposition: Home [...] complication documented in this encounter Care Teams Tire Maker Relationship Specialty Start Date End Date None None PCP - General 08/18/12 09/09/21 documented as of this encounter
--- OUTSIDE RECORDS SUMMARY | 2024-06-30 16:38 | XMS_ITS | Encounter Summary ---
Author Organization [facility] Address [facility] [place] [address] Care Team Providers Care Reading Teacher Name Role Phone None Primary Care Provider Unavailabl e Reason for Visit * Reason Comments Advice Only Encounter Details Date Type Department Care Team (Late st Contact Info) Description 09/06/2012 2:45 PM EST Office Visit Obstetrics and Gynecology at [facility] [place] [address] Valentina Mae MD [facility] [address] OBSTETRICS [place] [address] Unspecified high-risk (Primary Dx) Discharge Disposition: Home [...] Take 400 Units by mouth daily. ??? [place]-3 Fatty Acids (FISH OIL) 300 mg Cap [...] Cc: Ed Mccarthy CN [address] [place] [address] , with copy of ultrasound report Addendum: TSH 5.48, FT4 1.11, FT3 2.8. Called patient and discussed results. Has subclinical hypothyroidism. Recommend consider taking synthroid 25mcg QD and script called to pharmacy. [facility] results, recommend repeat testing [...] PM EST) Thyroperoxidase Ab 14 <=34 IU/mL CERBANNER MILLENNIUM Blood specimen (specimen) 09/06/2012 3:06 PM EST 09/07/2012 8:18 AM EST Narrative Resulting Agency Comment Spec In Lab Valentina Mae MD IMMUNOLOGY ORDERAB LES CERWALTER DE LA CRUZIUM * T3, free (09/06/2012 3:06 PM EST) Free T3 2.8 2.0 - 3.5 pg/mL [facility] Comment: Test Performed by: [place] [address] Operator Cavity Pump: Alice Sanchez, Ph.D. Blood specimen (specimen) 09/06/2012 3:06 PM EST 09/06/2012 4:07 PM EST Narrative Resulting Agency Comment Spec In Lab Valentina Mae MD CHEMISTRY ORDERABL ES Performing Organization Address [facility]/ZIP Co de Phone Number [facility]NA * T4, free (09/06/2012 3:06 PM EST) Free T4 1.11 0.90 - 1.60 ng/dL [facility] Blood specimen (specimen) 09/06/2012 3:06 PM EST 09/06/2012 3:12 PM EST Narrative Resulting Agency Comment Spec In Lab Valentina Mae MD CHEMISTRY ORDERABL ES RUPERTOBANNER JONOIUM * (ABNORMAL) TSH (09/06/2012 3:06 PM EST) Thyroid Stimulating Hormone 5.48(H) 0.27 - 4.20 mcIU/mL CERNER MILLENNIUM Blood specimen (specimen) 09/06/2012 3:06 PM EST 09/06/2012 3:12 PM EST Narrative Resulting Agency Comment Spec In Lab Valentina Mae MD CHEMISTRY ORDERABL ES [facility] documented in this encounter Visit Diagnoses Diagnosis Unspecified high-risk - Primary documented in this encounter Care Teams Reading Teacher Relationship Specialty Start Date End Date None None PCP - General 08/18/12 09/09/21 documented as of this encounter
--- OUTSIDE RECORDS SUMMARY | 2024-06-30 16:38 | XMS_ITS | Encounter Summary ---
Author Organization [facility] Address [address] [place] [id number] Care Team Providers Care Transit Worker Name Role Phone Unknown, Provider Primary Care Provider Lala ilable Encounter Details Date Type Department Care Team (Late st Contact Info) Description 08/23/2021 Lab Requisition [facility] Pathology & Laboratory Medicine - [address] [address] Outr Resulting Lab, Provider Social History Tobacco [...] 97 - 169 ng/dL 08/24/2021 17:12 EST [facility] Blood VENOUS BLOOD / Unknown 08/22/2021 9:55 EST 08/24/2021 16:19 EST us Provider Outr Resulting Lab CHEMISTRY & BLOOD GA S ORDERABLES Final Result [facility] [address] [place] [address] documented in this encounter Visit Diagnoses Not on filedocumented in this encounter Care Teams Transit Worker Relationship Specialty Start Date End Date Unknown, Provider, PCP - General 12/27/08 documented as of this encounter
--- OUTSIDE RECORDS SUMMARY | 2024-06-30 16:38 | XMS_ITS | Encounter Summary ---
[place] [address] Care Team Providers Care Operator Automated Process Name Role Phone None Primary Care Provider Unavailabl e Encounter Details Date Type Department Care Team (Late st Contact Info) Description 12/06/2012 External Results Obstetrics [place] [address] Gamaliel Elmore RN , supervision of, high-risk [...] high-risk documented in this encounter Care Teams Operator Automated Process Relationship Specialty Start Date End Date None None PCP - General 08/18/12 09/09/21 documented as of this encounter
--- OUTSIDE RECORDS SUMMARY | 2024-06-30 16:38 | XMS_ITS | Encounter Summary ---
Author Organization [facility] [place] [address] Care Team Providers Care Water Trainer Name Role Phone Arcelia Brice APRN Primary Care Provider [phone] Encounter Details Date Type Department Care Team (Late st Contact Info) Description 10/24/2021 10:00 AM EST [place] [address] Lazarus Jiang MD [facility] [place] [address] Paresthesia Social History Tobacco Use Types Packs/Day [...] - 10/24/2021 10:00 [place] [address] 10/24/2021 Patient name: Belkis Wilson Date of : 1975 Referring provider: Arcelia Brice APRN [address] [place] [address] HISTORY REASON FOR REFERRAL/CHIEF COMPLAINT: 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 ??? [place]-3 Fatty Acids (FISH OIL) 300 mg Cap [...] found for: CRP B12No results found for: [id number] CKNo results found for: CK Angiotensin ConvertaseNo [...] LDLCHOL, LDLDIRECT SHANNON 65No results found for: LNY27MM ANTI GM1,ANTI SGPG, MAG@RESUFAST (MAGAUTOAB,SGPG,MAGWB,GM1AB)@ HEAVY METAL [...] ANNA1, ANNA2, ANNA3, AGNA1, PCA1, PCA2, PCATYPETR, AMPHIPHYSIN,RVXW1HOK, STRIATMSCLAB, CACHABPQTYPE, CACHABNTYPE, ACHRBINDAB, NEUROKCHAB, NMDARECEPTOR, DAQ97IG THROMBOSIS HOMEOCYSTEINENo results found for: HOMOCYSTEINE THROMBOSIS PANELNo results found for: ACAIGM, [id number] FACTOR V LEIDEN No components found for: [...] needed. Lazarus Jiang MD Department of Neurology [facility] documented in this encounter Plan of Treatment Not on file documented as of this encounter Visit Diagnoses Diagnosis Paresthesia Disturbance of skin sensation documented in this encounter Care Teams Water Trainer Relationship Specialty Start Date End Date Arcelia Brice, PICK UP ATTENDANT [address] [place] [address] PCP - General Family Medicine 09/10/21 documented as of this encounter
--- OUTSIDE RECORDS SUMMARY | 2024-06-30 16:38 | XMS_ITS | Encounter Summary ---
Author Organization [facility] Address [facility] [place] [address] Care Team Providers Care Assistant Store Manager Name Role Phone None Primary Care Provider Unavailabl e Encounter Details Date Type Department Care Team (Late Contact Info) Description 10/01/2012 Telephone Obstetrics [place] [address] Heladio Cope MD [facility] OBSTETRICS & [place] [address] Social History Tobacco Use Types Packs/Day Years [...] FT4 and [facility]. [place] providers in [place] have not received the recommendations from that consult, and her recent repeat blood work did not include a free T3. She is going to [place] for 1 week. Would like to know if Dr. Duran feels the FT3 is important and should she have her blood drawn again? Also would like report of visit sent to her providers in [place]. HELADIO COPE MD documented in this encounter Plan of Treatment Not on file documented as of this encounter Visit Diagnoses Not on filedocumented in this encounter Care Teams Assistant Store Manager Relationship Specialty Start Date End Date None None PCP - General 08/18/12 09/09/21 documented as of this encounter
--- OUTSIDE RECORDS SUMMARY | 2024-06-30 16:38 | XMS_ITS | Encounter Summary ---
Author Organization [facility] Address [address] [place] [address] Care Team Providers Care Fitness/Wellness Director Name Role Phone Unknown, Provider Primary Care Provider Unava ilable Encounter Details Date Type Department Care Team (Late st Contact Info) Description 08/11/2012 Results Only [facility] [phone] Kasandra Moore, [facility] [address] [place] [address] Social History Tobacco Use Types Packs/Day Years [...] ? NORM QUEVEDO ? Accession #: ? [id number] : ? 1975 (Age: 37) ??F ?Collect [...] End of Report [facility] 08/11/2012 08/15/2012 us Kasandra Moore CNM PATHOLOGY ORDERABLES Katlin castillo Result [facility] [address] [place] [address] documented in this encounter Visit Diagnoses Not on filedocumented in this encounter Care Teams Fitness/Wellness Director Relationship Specialty Start Date End Date Unknown, Provider, PCP - General 12/27/08 documented as of this encounter
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
--- OUTSIDE RECORDS SUMMARY | 2024-06-30 16:38 | XMS_ITS | Referral Summary ---
Author Organization [facility] Address [address] [place] [address] Care Team Providers Care Associate Professor Of Forestry Name Role Phone Unknown, Provider Primary Care Provider Unava ilable Social History Tobacco Use Types Packs/Day Years Used Date Smoking Tobacco: Never Assessed Comments Unknown Sex and Gender Information Value Date Recorded Sex Assigned at Not on file Legal Sex Female 18:45 EST Gender Identity Not on file Sexual Orientation Not on file Plan of Treatment Not on file Insurance [facility] Care Teams Associate Professor Of Forestry Relationship Specialty Start Date End Date Unknown, Provider, PCP - General 12/27/08
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
--- OUTSIDE RECORDS SUMMARY | 2024-06-30 16:38 | XMS_ITS | Clinical Summary ---
[facility] Address [facility] [place] [place] [address] Care Team Providers Care Baker Chef Name Role Phone Arcelia Brice APRN Primary Care Provider [phone] Allergies No known active allergies Medications Medication Sig Dispensed Refills Start Date End Date Status cholecalciferol, Vitamin D3, 400 unit tablet Take 400 Units by mouth daily. Active Raymond-3 Fatty Acids (FISH OIL) 300 mg Cap [...] (12/06/2012): Team MFM transfer of care from [facility] at 24 weeks Delivery plan GBS date & Result Cystic fibrosis choice Negative from prior Aneuploidy choice declined Others screening tests Infant nutrition Childbirth education preferences Contraception plan condoms Ped/circ plans [facility] Immunizations: Influenza vaccine Accepted Declined Contraindicated x Other vaccines Indicated Not indicated Given during Tdap x Pneumovax MMR Varicella x Other RhD negative 11/30/2012 Overview (01/02/2013): Rhogam Canidiate Will be getting her [address] [facility] Raynaud disease 11/30/2012 Overview (11/30/2012): Dx 20 [...] Cancer screening 2014 Covid-19 Vaccine (1 - 2023- season) 2024 Influenza (Flu) vaccine (1 o f 1 - Influenza standard series) 04/16/2024 Zoster vaccine (1 of 2) 2024 Advance Directives * Full Code (Latest Code Status on File) Date Activated Date Inactivated Comments 03/10/2013 8:28 PM 03/10/2013 11:45 PM Question Answer Comments Order Status: Initial Order Does patient have decision m aking capacity? Yes, Order is based on Patients wishes. Care Teams Baker Chef Relationship Specialty Start Date End Date Arcelia Brcie, VOLUNTEER FIRE FIGHTER [address] [place], [place] [id number] PCP - General Family Medicine 09/10/21
--- OUTSIDE RECORDS SUMMARY | 2024-06-30 16:38 | XMS_ITS | Encounter Summary ---
Author Organization [facility] Address [facility] [place] [address] Care Team Providers Care Tank Cooper Name Role Phone None Primary Care Provider Unavailabl e Reason for Visit * Reason Comments Care Encounter Details Date Type Department Care Team (Latest Contact Info) Description 04/28/2013 11:30 AM EDT Visit Obstetrics and Gynecology at [facility] [place] [address] Valentina Duran MD [facility] [address] OBSTET[place] [address] Subclinical hypothyroidism (Primary Dx); Routine follow-up Discharge [...] Obtain PCP Additional Plans: TSH draw at [facility] documented in this encounter Miscellaneous Notes * Miscellaneous - Provider, Scanning - 05/03/2013 8:44 AM EDT documented in this encounter Plan of Treatment Not on file documented as of this encounter Visit Diagnoses Diagnosis Subclinical hypothyroidism- Primary Other specified acquired hypothyroidism Routine follow-up documented in this encounter Care Teams Tank Cooper Relationship Specialty Start Date End Date None None PCP - General 08/18/12 09/09/21 documented as of this encounter
--- OUTSIDE RECORDS SUMMARY | 2024-06-30 16:38 | XMS_ITS | Encounter Summary ---
[place] [address] Care Team Providers Care Supervisor Sewer System Name Role Phone Arcelia Brice PUBLIC SAFETY TEACHER Primary Care Provider [phone] Encounter Details Date Type Department Care Team [...] on filedocumented in this encounter Care Teams Supervisor Sewer System Relationship Specialty Start Date End Date Arcelia Brice APRN [address] [place] [address] PCP - General Family Medicine 09/10/21 documented as of this encounter
--- OUTSIDE RECORDS SUMMARY | 2024-06-30 16:38 | XMS_ITS | Encounter Summary ---
Author Organization [facility] Address [facility] [place] [address] Care Team Providers Care Gym Attendant Name Role Phone None Primary Care Provider Unavailabl e Encounter Details Date Type Department Care Team (Late st Contact Info) Description 12/31/2012 Telephone Obstetrics [place] [address] Dana Snell MD [facility] DR OBSTETRICS & [place] [address] Social History Tobacco Use Types Packs/Day Years [...] on filedocumented in this encounter Care Teams Gym Attendant Relationship Specialty Start Date End Date None None PCP - General 08/18/12 09/09/21 documented as of this encounter
--- OUTSIDE RECORDS SUMMARY | 2024-06-30 16:38 | XMS_ITS | Encounter Summary ---
Author Organization [facility] Address [address] [place] [address] Care Team Providers Care Marine Steward Name Role Phone Unknown, Provider Primary Care Provider Unava ilable Encounter Details Date Type Department Care Team (Late st Contact Info) Description 09/19/2018 Results Only [facility] [phone] Dewey Brice, ELISE [address] [place] [address] Social History Tobacco Use Types Packs/Day Years [...] ? NORM QUEVEDO ? Accession #: ? [id number] ? : ? 1975 (Age: 43) ??F ?Collect Date: ? 09/19/2018 ? Location: ? [facility] ? Receive Date: ? 09/20/2018 ? Provider: DEWEY BRICE HUB CUTTER Copy to: GERMAIN ANGEL MD ? Final [...] types 16,18,31,33,35, 39,45,51,52,56,58, 59,66, and 68 by tool procurement coordinator mediated amplification. Comments Document reviewed and electronically signed by: ? System Interface ? Report date: 09/27/2018 By the signature above, the attending physician certifies that he/she has personally conducted a gross and/or microscopic examination of the described specimens and rendered or confirmed the above diagnosis. End of Report [facility] 09/19/2018 09/20/2018 us Dewey Brice HUB CUTTER PATHOLOGY ORDERABLES Final Res ult [facility] [address] [place] [address] documented in this encounter Visit Diagnoses Not on filedocumented in this encounter Care Teams Marine Steward Relationship Specialty Start Date End Date Unknown, Provider, PCP - General 12/27/08 documented as of this encounter
== END 2024-06-30 16:37 | disposition home or self-care (01) ==
LOC: LBN 16:36
PROVIDERS: PCP Nurse Practitioner Family; Visit Provider Otolaryngology Otolaryngology/Facial Plastic Surgery
DX: D49.2 Neoplasm of unspecified behavior of bone, soft tissue, and skin (principal); Z12.83 Encounter for screening for malignant neoplasm of skin
CPT/HCPCS: 88305

== ENCOUNTER 2024-12-01 18:04 | Outpatient (REF) | payer BC, SELFPAY ==
--- NOTE | 2024-12-01 15:15 | SKI_PTH ---
PATIENT: Belkis Wilson LOC: [facility] U#:[id number] AGE/SX: 49/F ROOM: RE12/01/[address]: Mac Hu DO : 1975 BED: DIS: 12/01/2024 SPEC #: [id number] RECD: 12/01/24 18:16 STATUS: CHRIS REQ #: [id number] ANKIT: 12/01/24 15:[address]: Mac Hu DEPT: Surgical Specimen RECD BY: Alice Cook ENTERED: 12/01/24 18:17 SP TYPE: RAVIN PHELPS DR: Sloane Mendoza Tissues: 1 - SKIN BIOPSY(SHAVE/PUNCH) 2 - SKIN BIOPSY(SHAVE/PUNCH) Procedures: SKIN LEVEL 4 Comments: [id number]
== END 2024-12-01 18:05 | disposition home or self-care (01) ==
LOC: LBN 18:04
PROVIDERS: PCP Nurse Practitioner Family; Visit Provider Otolaryngology Otolaryngology/Facial Plastic Surgery
DX: L81.4 Other melanin hyperpigmentation (principal)
CPT/HCPCS: 88305

== ENCOUNTER 2025-03-23 17:20 | Outpatient (CLI) | payer BC, SELFPAY ==
--- NOTE | 2025-03-23 17:40 | DI.RAD_ITS ---
Exam(s) XR FEMUR RT EXAM: XR FEMUR RT CLINICAL HISTORY: pain in right leg. TECHNIQUE: 2D digital imaging was performed of the right femur. Four images were obtained. AP and lateral views were obtained. COMPARISON: No exams were available for comparison FINDINGS: BONES: No acute fracture is present. No bony destructive lesion is seen. Visualized portion of knee and hip joints are unremarkable. SOFT TISSUE: Normal. IMPRESSION: Unremarkable radiographs of the right femur. DATA REPOSITORY: RADIATION DOSE DELIVERED:
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
== END 2025-03-23 17:40 ==
PROVIDERS: Visit Provider Physician Assistant Medical
DX: M79.604 Pain in right leg (principal)
CPT/HCPCS: 73552

== ENCOUNTER 2025-04-02 16:22 | Outpatient (REF) | payer BC, SELFPAY ==
[2025-04-02 17:15] LABS: HCT 41.4 % (36.0-46.0); HGB 13.4 g/dL (11.2-15.7); MCH 29.8 pg (27.0-33.0); MCHC 32.4 % (32.0-36.0); MCV 92 fL (80-95); MPV 10.2 fL (8.0-11.0); Platelet Count 236 10^3/uL (130-400); RBC 4.50 10^6/uL (3.93-5.22); RDW 12.7 % (11.7-14.6); RDW-SD 42.9 fL; WBC 6.00 10^3/uL (4.4-10.8)
[2025-04-02 18:11] LABS: ALT 24 U/L (14-59); AST 18 U/L (15-37); Albumin 3.9 g/dL (3.4-5.0); Alkaline Phosphatase 73 U/L (46-116); Anion Gap 9.4 mmol/L (3-11); BUN 17 mg/dL (7-18); Bilirubin, Total 0.4 mg/dL (0.2-1.0); CO2 27.6 mmol/L (21.0-32.0); Calcium 9.4 mg/dL (8.5-10.1); Calculated LDL 122 mg/dL (<100); Chloride 104 mmol/L (98-107); Cholesterol 209 mg/dL (<200); Estimated GFR 109.28 (mL/min/1.73m2); Glucose 86 mg/dL (74-106); HDL Cholesterol 67 mg/dL (>or=50); Potassium 4.1 mmol/L (3.5-5.1); Sodium 141 mmol/L (136-145); TSH 2.21 uIU/mL (0.36-3.74); Total Protein 7.6 g/dL (6.4-8.2); Triglyceride 102 mg/dL (<150); Vitamin D 25 Total 31 ng/mL (30-100)
[2025-04-04 10:44] LABS: Lyme Ab w Rflx to Lyme Confirm Negative (Negative)
== END 2025-04-02 16:23 | disposition home or self-care (01) ==
LOC: NCHCN 16:22
DX: M25.561 Pain in right knee (principal); Z00.00 Encounter for general adult medical examination without abnormal findings; E55.9 Vitamin D deficiency, unspecified; R53.82 Chronic fatigue, unspecified
CPT/HCPCS: 80053; 80061; 82306; 85027; 84439; 84443; 86618